=== PATIENT | female | born 1950 | race Caucasian/White ===

== ENCOUNTER → 2016-06-20 | Outpatient (CLI) | payer OTHER ==
[~2016-06-20] MED LIST: ABL/5 PO; ACET-1256 PO; ASPEC81 PO; BIOTCAP2 PO; BUPR10DI TOP; BUPR20DI TOP; CHOL100010 PO; CIPR1TAB11 PO; CYAN10004 SL; CYM60 PO; DIPH25CA65 PO; DOXY100C76 PO; ENAL1TAB29 PO; EZET10TA47 PO; FLUT27.53 NAE; FRRG PO; GABA-112 PO; HYDR-5688 PO; HYDR200T5 PO; INSU1.2I SQ; KPP/1000 PO; LEVE500T13 PO; LEVO75TA PO; MELO7.5T5 PO; NVLGI/PEN SC; OXCA300T PO; PHEN-775 PO; POLYSOL4 OP; POTASSIUM CITRATE PO; PRAV80TA2 PO; PRLSR20 PO; PROP20TA67 PO; TAMS0.4C38 PO; TOPI200T14 PO; VERA240C2 PO; VITA10004 PO; VITACAP37 PO; WARF-281 PO; WARF10TA4 PO; WARF5TAB7 PO; [UNRECOGNIZED DRUG - CODE] PO
== END | disposition home or self-care (01) ==
LOC: C.LABSPEC 17:24
PROVIDERS: ATTEND Nurse Practitioner Adult Health
DX: N20.0 Calculus of kidney (principal)

== ENCOUNTER → 2016-06-22 | Outpatient (CLI) | payer OTHER ==
--- NOTE | 2016-06-22 13:44 | DIAGNOSTIC IMAGING REPORT ---
ABDOMEN AND PELVIS CT WITHOUT CONTRAST CT DOSE: 991.82 mGycm HISTORY: Right-sided flank pain. TECHNIQUE: Multiaxial CT images of the abdomen and pelvis were performed without contrast. COMPARISON STUDY: Abdomen and pelvis CT 12/12/2011. FINDINGS: Subsegmental atelectasis within the left lung base. No pneumoperitoneum. No pneumatosis. Posterior decompression and fusion within the lower lumbar spine. A spinal stimulator device is again noted within the lumbar region. Tiny fat-containing umbilical hernia. Cholecystectomy. The unenhanced liver, pancreas, spleen, adrenal glands are unremarkable. Bilateral nephrolithiasis. Dominant stone within the lower pole of the right kidney measures 7 mm. No hydronephrosis. Bilateral renal hypodense lesions. These are incompletely characterize on this noncontrast study but likely represent cysts. The dominant lesion on the right measures 2 cm. No ureteral calculi. No hydronephrosis. No retroperitoneal lymphadenopathy. The bladder, uterus, and ovaries are within normal limits. Suboptimal evaluation for bowel pathology due to the lack of intravenous and oral contrast. However, there is no definite bowel wall thickening or obstruction. Normal appendix. IMPRESSION: 1. Bilateral nephrolithiasis. No hydronephrosis. 2. No definite bowel wall thickening or obstruction. 3. Additional findings as described above. Electronically signed by: Lisandro Parrish M.D. 06/22/2016 1:42 PM Dictated Date/Time: 06/22/2016 1:26 PM
== END | disposition home or self-care (01) ==
LOC: C.CTS 13:00
PROVIDERS: ATTEND Nurse Practitioner Adult Health
DX: N20.0 Calculus of kidney (principal); R10.9 Unspecified abdominal pain

== ENCOUNTER → 2016-06-29 | Outpatient (CLI) | payer OTHER ==
--- NOTE | 2016-06-29 12:36 | DIAGNOSTIC IMAGING REPORT ---
KUB CLINICAL HISTORY: Nephrolithiasis. FINDINGS: 2 AP supine abdominal radiographs are correlated with abdominal CT dated 06/22/2016. There is a nonobstructed abdominal bowel gas pattern noting moderate colonic fecal retention. No evidence of intraperitoneal free air is seen on these supine images. Cholecystectomy clips are present in the right upper quadrant. A 10 mm calcification projects over the right kidney. This likely represents a nonobstructing kidney stone when correlated with the recent abdominal CT scan. No calcifications are seen projecting over the left kidney or along the course of the ureters. Phleboliths are identified in the pelvis. The skeletal structures are osteopenic. There is lumbosacral spondylosis with evidence of previous lumbar spinal fusion. A stimulator device projects over the spine. IMPRESSION: 1. A 10 mm nonobstructing calculus projects over right kidney. This was better assessed on the 06/22/2016 CT scan. 2. Nonobstructed abdominal bowel gas pattern noting moderate constipation. Electronically signed by: Jhony Ortiz M.D. 06/29/2016 12:34 PM Dictated Date/Time: 06/29/2016 12:32 PM
[2016-06-29 13:10] LABS: COMPLETE YES; HEMATOCRIT 38.6 % (37-47); IG% 0.2 %; LYMPH % 30.8 %; LYMPH ABS # 1.76 K/uL (1.2-3.4); MEAN CORPUSCULAR HEMOGLOBIN 30.3 pg (25-34); MEAN CORPUSCULAR HGB CONC 33.7 g/dl (32-36); MEAN PLATELET VOLUME 9.2 fL (7.4-10.4); MONO % 6.6 %; NEUT % 62.4 %; PLATELET COUNT 251 K/uL (130-400); RED BLOOD COUNT 4.29 M/uL (4.2-5.4); WHITE BLOOD COUNT 5.72 K/uL (4.8-10.8)
[2016-06-29 13:25] LABS: ESTIMATED AVERAGE GLUCOSE 157 mg/dl; HA1C FLAG Normal (Normal)
[2016-06-29 13:35] LABS: ALT/SGPT 24 U/L (12-78)
[2016-06-29 13:39] LABS: ALKALINE PHOSPHATASE 83 U/L (45-117); AST/SGOT 14 U/L (15-37)
[2016-06-29 13:42] LABS: BLOOD UREA NITROGEN 45 mg/dl (7-18); BUN/CREATININE RATIO 34.6 (10-20)
== END | disposition home or self-care (01) ==
LOC: C.RAD1850 11:49
PROVIDERS: ATTEND Nurse Practitioner Adult Health
DX: N28.9 Disorder of kidney and ureter, unspecified (principal); M13.0 Polyarthritis, unspecified; Z92.29 Personal history of other drug therapy; M15.9 Polyosteoarthritis, unspecified; Z79.899 Other long term (current) drug therapy; E11.29 Type 2 diabetes mellitus with other diabetic kidney complication

== ENCOUNTER → 2016-07-04 | Outpatient (CLI) | payer OTHER ==
[~2016-07-04] MED LIST changes: +OPTIRAY 320 IV PRN
--- NOTE | 2016-07-04 12:17 | DIAGNOSTIC IMAGING REPORT ---
CT UROGRAM CLINICAL HISTORY: Follow-up renal lesion. COMPARISON STUDY: Unenhanced abdominal CT scan dated 06/22/2016. TECHNIQUE: Following the IV administration of 94 cc of Optiray 320, CT urogram of the abdomen and pelvis is performed from the lung bases to the proximal femora. Images are reviewed in the axial, sagittal, and coronal planes. IV contrast was administered without complication. The unenhanced series was not repeated as the patient had an unenhanced abdominal CT dated 06/22/2016. CT DOSE: 1277.76 mGy.cm FINDINGS: Lung bases: The heart is normal in size and without pericardial effusion. Linear atelectasis versus scarring is present at the lung bases. No airspace consolidation is identified typical for pneumonia and there is no pleural effusion. A small hiatal hernia is identified. Liver: The contrast-enhanced liver is normal in size, contour, and attenuation. There is minimal central intrahepatic biliary ductal dilatation. The hepatic veins and portal veins are patent. Gallbladder: Surgically absent noting clips in the gallbladder fossa. Spleen: Normal in size and attenuation. Pancreas: The pancreas is moderately atrophic and grossly unremarkable. Adrenal glands: Unremarkable. Kidneys and ureters: The contrast enhanced kidneys demonstrate cortical atrophy and are without hydronephrosis. The kidneys enhance and excrete symmetrically. Bilateral renal cysts measure up to 2.2 cm. Additional subcentimeter cortical hypodensities also likely represent cysts but are too small for definitive characterization. There is no enhancing renal cortical mass lesion identified. There is no evidence of urothelial lesion within the renal pelvis bilaterally or along the course of either ureter. Abdominal vasculature: The abdominal aorta is normal in course and caliber noting mild to moderate atherosclerotic calcification. Bowel: The small bowel and colon are normal in course and caliber. The appendix is well-visualized and normal. Peritoneum: There is no intraperitoneal free air or abdominal ascites. Lymphadenopathy: None. Pelvic viscera: The bladder is normal as visualized. The uterus and adnexa are normal as imaged. Skeletal structures: The skeletal structures are osteopenic. There is lumbar sacral spondylosis, with postoperative change from L4 to S1 spinal fusion. No destructive bony lesions are seen. A spinal simulator device is present with intrathecal leads. Arthritic change is also seen in the hips. IMPRESSION: 1. There are small bilateral renal cysts. 2. No enhancing renal mass is identified. There is no evidence of urothelial lesion within the renal pelvis bilaterally or along the course of the ureters. 3. The bladder is normal as visualized. 4. Additional findings as above. Electronically signed by: Jhony Ortiz M.D. 07/04/2016 12:16 PM Dictated Date/Time: 07/04/2016 12:05 PM
== END | disposition home or self-care (01) ==
LOC: C.CTS 10:37
PROVIDERS: ATTEND Nurse Practitioner Adult Health
DX: N28.1 Cyst of kidney, acquired (principal)

== ENCOUNTER 2016-08-02 07:08 | Day surgery (SDC) | payer OTHER ==
[2016-07-24 10:46] VITALS: BMI 36.0
--- NOTE | 2016-07-24 11:32 | PAT Medication Instructions ---
Service Date Jul 24, 2016. Current Home Medication List Acetaminophen (Tylenol), 500-1,000 MG PO Q6 PRN for Pain Aripiprazole (Abilify), 10 MG PO QAM Aspirin Enteric Coated (Ecotrin Or Generic *), 81 MG PO HS Biotin (Biotin 5000), 3 CAP PO QAM Buprenorphine (Butrans), 1 PATCH TOP WK Cholecalciferol (Vitamin D), 3,000 INTER.UNIT PO QPM Cyanocobalamin (Vitamin B-12 1000 Mcg), 1,000 MCG SL HS Diphenhydramine Hcl (Benadryl Allergy), 50 MG PO Q6 PRN for ALLERGIC REACTION Duloxetine Hcl (Cymbalta *), 120 MG PO HS Enalapril Maleate (Vasotec), 2.5 MG PO QAM Ezetimibe (Zetia), 10 MG PO HS Ferrous Gluconate (Iron Supplement), 324 MG PO QAM Hydroxychloroquine Sulfate (Plaquenil), 200 MG PO BIDM Insulin Aspart (Novolog Flexpen), 2 UNITS SC PM PRN for for BSG >100 Insulin Glargine (Toujeo Solostar), 24 UNITS SQ QAM Levetiracetam (Keppra), 500 MG PO BID Levetiracetam (Keppra), 2,000 MG PO HS Levothyroxine Sodium (Synthroid), 75 MCG PO QAM Omeprazole (Prilosec), 20 MG PO QAM Polyethylene Glycol-Propylene (Systane), 2 DROPS OP UD PRN for DRYNESS Pravastatin Sodium (Pravastatin Sodium), 80 MG PO HS Tamsulosin Hcl (Flomax), 0.4 MG PO HS Topiramate (Topamax), 300 MG PO HS Verapamil Hcl (Verapamil Hcl Er), 240 MG PO BID Vitamin E (Vitamin E), 1,000 UNITS PO QAM Warfarin Sod (Jantoven), 10 MG PO 2XWEEK Warfarin Sodium (Warfarin Sodium), 15 MG PO 5XWEEK [Potassium Citrate], 30 MEQ PO BID Medication Instructions For Your Scheduled Surgery - Continue as directed: Buprenorphine (Butrans), 1 PATCH TOP WK - Hold the following medications 7-10 days prior to surgery per surgeon's instructions (okay per prescribing physician): Aspirin Enteric Coated (Ecotrin Or Generic *), 81 MG PO HS - Hold the following medications as of 07/25/16: Biotin (Biotin 5000), 3 CAP PO QAM Vitamin E (Vitamin E), 1,000 UNITS PO QAM - Hold the following medications the morning of surgery: [Potassium Citrate], 30 MEQ PO BID Enalapril Maleate (Vasotec), 2.5 MG PO QAM Ferrous Gluconate (Iron Supplement), 324 MG PO QAM Diphenhydramine Hcl (Benadryl Allergy), 50 MG PO Q6 PRN for ALLERGIC REACTION Insulin Aspart (Novolog Flexpen), 2 UNITS SC PM PRN for for BSG >100 - For Insulin Dependent Diabetic patients: Test blood sugar A.M. of surgery. - If Blood Sugar is GREATER THAN 150, take HALF of your regular dose of: Insulin Glargine (Toujeo Solostar) - If Blood Sugar is LESS THAN 150, DO NOT TAKE ANY: Insulin Glargine - Take the following medications the morning of surgery with a sip of water OTHERWISE NOTHING TO EAT OR DRINK AFTER MIDNIGHT : Acetaminophen (Tylenol), 500-1,000 MG PO Q6 PRN for Pain (may take if needed up to 4 hours prior to surgery) Aripiprazole (Abilify), 10 MG PO QAM Levetiracetam (Keppra), 500 MG PO BID Verapamil Hcl (Verapamil Hcl Er), 240 MG PO BID Hydroxychloroquine Sulfate (Plaquenil), 200 MG PO BIDM Polyethylene Glycol-Propylene (Systane), 2 DROPS OP UD PRN for DRYNESS Levothyroxine Sodium (Synthroid), 75 MCG PO QAM Omeprazole (Prilosec), 20 MG PO QAM Warfarin Sod (Coumadin) (okay to continue per surgeon) - Take the following medications as scheduled the night before surgery: Acetaminophen (Tylenol), 500-1,000 MG PO Q6 PRN for Pain Levetiracetam (Keppra), 2,000 MG PO HS Pravastatin Sodium (Pravastatin Sodium), 80 MG PO HS Tamsulosin Hcl (Flomax), 0.4 MG PO HS Topiramate (Topamax), 300 MG PO HS Cholecalciferol (Vitamin D), 3,000 INTER.UNIT PO QPM [Potassium Citrate], 30 MEQ PO BID Ezetimibe (Zetia), 10 MG PO HS Duloxetine Hcl (Cymbalta *), 120 MG PO HS Cyanocobalamin (Vitamin B-12 1000 Mcg), 1,000 MCG SL HS Diphenhydramine Hcl (Benadryl Allergy), 50 MG PO Q6 PRN for ALLERGIC REACTION Insulin Aspart (Novolog Flexpen), 2 UNITS SC PM PRN for for BSG >100 Levetiracetam (Keppra), 500 MG PO BID Verapamil Hcl (Verapamil Hcl Er), 240 MG PO BID Hydroxychloroquine Sulfate (Plaquenil), 200 MG PO BIDM Polyethylene Glycol-Propylene (Systane), 2 DROPS OP UD PRN for DRYNESS If you have any questions please call us at [phone] or [phone] or [phone]
--- NOTE | 2016-07-24 12:00 | DIAGNOSTIC IMAGING REPORT ---
CHEST PREADMISSION(PA/LAT) CLINICAL HISTORY: Preoperative evaluation. COMPARISON STUDY: Chest radiograph October 07, 2015. FINDINGS: Lung volumes are normal. There is no pneumothorax or pleural effusion. Metallic density projecting of the left paraspinal region was shown on prior CT. This is iatrogenic. There is no evidence of pulmonary edema. No consolidation is present. The appearance of the chest is unchanged. Borderline cardiomegaly is unchanged. IMPRESSION: No acute cardiopulmonary findings. Electronically signed by: Esdras Freedman M.D. 07/24/2016 11:59 AM Dictated Date/Time: 07/24/2016 11:58 AM
[2016-07-24 12:21] LABS: HEMATOCRIT 38.6 % (37-47); MEAN CELL VOLUME 88.3 fL (80-100); MEAN CORPUSCULAR HEMOGLOBIN 29.7 pg (25-34); MEAN CORPUSCULAR HGB CONC 33.7 g/dl (32-36); MEAN PLATELET VOLUME 8.9 fL (7.4-10.4); PLATELET COUNT 220 K/uL (130-400); RED BLOOD COUNT 4.37 M/uL (4.2-5.4); WHITE BLOOD COUNT 5.75 K/uL (4.8-10.8)
[2016-07-24 12:32] LABS: URINE APPEARANCE CLEAR (CLEAR); URINE BILIRUBIN NEG (NEG); URINE COLOR YELLOW; URINE NITRITE NEG (NEG); URINE SPECIFIC GRAVITY 1.019 (1.000-1.030); UROBILINOGEN NEG (NEG)
[2016-07-24 12:34] LABS: MANUAL MICROSCOPIC REQUIRED? NO; REVIEW REQ? NO
[2016-07-24 12:40] LABS: BUN/CREATININE RATIO 29.6 (10-20); CALCIUM 9.1 mg/dl (8.5-10.1); POTASSIUM 4.7 mmol/L (3.5-5.1)
[2016-07-24 13:00] LABS: BASO % 0.2 %; BASO ABS # 0.01 K/uL (0-0.2); COMPLETE YES; IG% 0.2 %; LYMPH % 24.7 %; LYMPH ABS # 1.42 K/uL (1.2-3.4); MONO % 6.6 %; NEUT % 68.3 %
[~2016-08-02] VITALS: Ht 160 cm; Wt 92.5 kg
[~2016-08-02 07:08] MED LIST changes: -BUPR20DI TOP; -CIPR1TAB11 PO; +CIPROFLOXACIN / D5W 400 MG IV SCH; +CIPROFLOXACIN 400MG / D5W IV SCH; -DOXY100C76 PO; -FLUT27.53 NAE; -GABA-112 PO; -HYDR-5688 PO; +LACTATED RINGER'S 1000ML 1,000 ML IV SCH; -MELO7.5T5 PO; -OPTIRAY 320 IV PRN; -OXCA300T PO; -PHEN-775 PO; -PROP20TA67 PO; -VITACAP37 PO; -WARF5TAB7 PO; -[UNRECOGNIZED DRUG - CODE] PO
[2016-08-02 07:46] VITALS: BP 176/85; PULSE 101; TEMP 36.8; O2SAT 96; Ht 160 cm; Wt 92.5 kg
--- NOTE | 2016-08-02 07:49 | History & Physical Bridge Note ---
H&P Re-Evaluation Bridge Note: I have examined the patient, reviewed the History & Physical and in the interval since the performance of the History & Physical I have noted the following changes of clinical significance: No changes noted
[2016-08-02 08:11] LABS: INR 2.3 (0.9-1.1); PARTIAL THROMBOPLASTIN RATIO 1.7; PROTHROMBIN TIME (PATIENT) 25.8 SECONDS (9.0-12.0)
[2016-08-02] MEDS ORDERED: MIDAZOLAM HCL 1 MG/ML 2ML VIAL ONE (08:51)
[2016-08-02] MEDS ORDERED: FENTANYL CITRATE INJ 50 MCG/1 ML 2 ML VIAL ONE (08:51)
[2016-08-02] MEDS ORDERED: LIDOCAINE HCL 2% 2 ML VIAL (20MG/ML) ONE (09:27)
[2016-08-02] MEDS ORDERED: ONDANSETRON INJ 2 MG/ML 2 ML VIAL ONE (09:27)
[2016-08-02] MEDS ORDERED: PROPOFOL IV EMULSION 10 MG/ML 20 ML VIAL IV ONE (09:27)
[2016-08-02] MEDS ORDERED: PHENYLEPHRINE 100MCG/ML 5ML SYR ONE (09:27)
[2016-08-02] MEDS ORDERED: CONRAY 30% 150ML BOTTLE FLUSH ONE (09:55)
[2016-08-02] MEDS ORDERED: OXYCODONE/ACETAMINOPHEN 5-325 TAB PO PRN ×2 (10:00)
[2016-08-02] MEDS ORDERED: SODIUM CHLORIDE 0.9% 1000ML 1,000 ML IV SCH (10:00)
--- NOTE | 2016-08-02 10:00 | [facility] Post Operative Brief Note ---
Immediate Operative Summary Operative Date Aug 02, 2016. Pre-Operative Diagnosis Right nephrolithiasis. Post-Operative Diagnosis Same as preop. Procedure(s) Performed Cystoscopy, right ureteroscopy, laser lithotripsy, right stent insertion ([id number]) Surgeon Dr. Nathanael Carvajal Contract Administrative Assistant Surgeon(s) None Estimated Blood Loss 0 ml Findings Numerous right renal stones. All fragmented to pieces small enough to pass. Specimens None. Drains 6Fx 24cm Anesthesia Gen Complication(s) None Disposition Recovery Room / PACU (stable)
[2016-08-02] MEDS ORDERED: CIPR1TAB11 PO (10:03)
[2016-08-02] MEDS ORDERED: PHEN-775 PO (10:03)
[2016-08-02] MEDS ORDERED: HYDR-5688 PO (10:03)
--- NOTE | 2016-08-02 10:07 | Discharge Instructions ---
Discharge Instructions Admission Reason for Admission: Stones Discharge Discharge Diagnosis / Problem: stones Discharge Goals Goal(s): Decrease discomfort, Improve function, Increase independence, Improve disease control Activity Recommendations Activity Limitations: resume your previous activity Lifting Limitations: none Exercise/Sports Limitations: none May Resume Sexual Activity: when tolerated Shower/Bathe: no limitations Driving or Machine Use: no limitations . Instructions / Follow-Up Instructions / Follow-Up Please keep your previously scheduled follow up appointment with Dr. Carvajal Discharge Diet Recommended Diet: Regular Diet Procedures Procedures Performed: Cystoscopy, right ureteroscopy, laser lithotripsy, right stent insertion ([id number]) Pending Studies Studies pending at discharge: no Laboratory Results Hemoglobin A1c Test 06/29/16 11:55 Range/Units Estimated Average Glucose 157 mg/dl Hemoglobin A1c 7.1 H 4.5-5.6 % Medical Emergencies . Who to Call and When: Medical Emergencies: If at any time you feel your situation is an emergency, please call 911 immediately. . Non-Emergent Contact Non-Emergency issues call your: Urologist Call Non-Emergent contact if: you have a fever, temperature is above 101.5, your pain is not controlled, your pain is worsening . . "Provider Documentation" section prepared by Jong Rice. VTE Core Measure Inpt VTE Proph given/why not?: Warfarin (Coumadin) (ok to resume tomorrow) [place] Drug Monitoring Program Search Results: patient reviewed within database (chronic pain patch used)
[2016-08-02] MEDS ORDERED: NALOXONE HCL 0.4 MG/1 ML VIAL/CARP IV PRN (10:15)
[2016-08-02] MEDS ORDERED: LABETALOL HCL IV 5 MG/ML 20ML IV PRN (10:15)
[2016-08-02] MEDS ORDERED: ONDANSETRON INJ 2 MG/ML 2 ML VIAL IV PRN (10:15)
[2016-08-02] MEDS ORDERED: PROMETHAZINE HCL INJ 12.5 MG in SODIUM CHLORIDE 0.9% 50ML 50 ML IV PRN (10:15)
[2016-08-02] MEDS ORDERED: FENTANYL CITRATE INJ 50 MCG/1 ML 2 ML VIAL IV PRN (10:15)
[2016-08-02] MEDS ORDERED: EpHEDrine SULFATE INJ 50 MG/ML AMP IV PRN (10:15)
[2016-08-02] MEDS ORDERED: ATROPINE SULFATE 0.1 MG/ML 5ML SYR IV PRN (10:15)
--- NOTE | 2016-08-02 10:29 | Anesthesiology Progress Note ---
Anesthesia Post Op Note Date & Time Aug 02, 2016 at 10:29 Vital Signs Pain Intensity: 4.0 Vital Signs Past 12 Hours Date Time Temp Pulse Resp B/P Pulse Ox O2 Delivery O2 Flow Rate FiO2 08/02/16 10:10 87 16 123/76 100 Mask 10 08/02/16 10:02 36.8 78 16 93/67 100 Mask 10 08/02/16 07:46 36.8 101 18 176/85 96 Room Air Notes Mental Status: alert / awake / arousable, participated in evaluation Pt Amnestic to Procedure: Yes Nausea / Vomiting: adequately controlled Pain: adequately controlled Airway Patency, RR, SpO2: stable & adequate BP & HR: stable & adequate Hydration State: stable & adequate Anesthetic Complications: no major complications apparent
[2016-08-02 10:45] VITALS: BP 109/64; PULSE 89; TEMP 36.5; O2SAT 93
--- NOTE | 2016-08-02 10:46 | DIAGNOSTIC IMAGING REPORT ---
KUB CLINICAL HISTORY: RIGHT LASER/LITHO AND STENT TECHNIQUE: Image intensifier COMPARISON STUDY: None FINDINGS: Image intensifier images for laser lithotripsy IMPRESSION: Image intensifier utilization for laser lithotripsy Electronically signed by: Skyler Peguero M.D. 08/02/2016 10:45 AM Dictated Date/Time: 08/02/2016 10:44 AM
[2016-08-02 11:15] VITALS: BP 111/65; PULSE 84; TEMP 36.5; O2SAT 93
[2016-08-02 11:45] VITALS: BP 119/65; PULSE 87; TEMP 36.3; O2SAT 95
--- NOTE | 2016-08-02 15:03 | OPERATIVE REPORT ---
DATE OF OPERATION: 08/02/2016 PREOPERATIVE DIAGNOSIS: Right renal calculi. POSTOPERATIVE DIAGNOSIS: Right renal calculi. PROCEDURES PERFORMED: Cystoscopy, right ureteroscopy, right laser lithotripsy, and right ureteral stent placement 6-Nicaraguan x 24 cm. SURGEON: Nathanael Carvajal MD ANESTHESIA: General. ESTIMATED BLOOD LOSS: Zero. URINE OUTPUT: Not recorded. SPECIMENS: There are no specimens. DRAINS: There are no drains. DESCRIPTION OF THE PROCEDURE: Uday Robles was identified in the preoperative holding area. Appropriate informed consents were reviewed and completed and the patient was transported to the operating suite. Upon arrival, she received appropriate preoperative antibiotics as well as general anesthesia. I passed a 22-Nicaraguan cystoscope with 30 degree lens. Full inspection of the bladder was carried out and revealed no evidence of mucosal abnormalities. Ureteral orifices were in orthotopic position. I then intubated the right ureteral orifice with a sensor wire and a 10-Nicaraguan double lumen catheter was advanced in the kidney without difficulty before placing a second wire through the second port of the 10-Nicaraguan double lumen catheter. I then passed a flexible ureteroscope without difficulty to the level of the kidney. Full renoscopy was carried out identifying numerous stones within the kidney. The majority of these were very small and round. There were, however, at least 2 somewhat larger stones. I passed a 270 micron laser fiber and I sequentially fragmented all the large stones within the kidney as well as all the smaller stones until I felt that all visible debris was small enough for spontaneous passage. I then performed a careful repeat renoscopy before careful exit ureteroscopy and conclusion of the case. I placed a 6-Nicaraguan 24 cm double-J ureteral stent seeing an excellent curl in the kidney as well as the bladder and I emptied the bladder and the case was concluded. I attest to the content of the Intraoperative Record and any orders documented therein. Any exceptio ns are noted below.
[2016-08-02] MEDS ORDERED: TAMSULOSIN HCL 0.4 MG CAP PO SCH (21:00)
[2016-09-24] MEDS ORDERED: PROP20TA67 PO (15:16)
[2016-10-08] MEDS ORDERED: MELO7.5T5 PO (15:25)
[2016-10-25] MEDS ORDERED: WARF5TAB7 PO (14:56)
[2017-01-21] MEDS ORDERED: GABA-112 PO (15:42)
[2017-02-07] MEDS ORDERED: WARF5TAB7 PO (15:00)
[2017-02-12] MEDS ORDERED: DOXY100C76 PO (16:38)
[2017-02-15] MEDS ORDERED: VITACAP37 PO (12:27)
[2017-02-15] MEDS ORDERED: DIPH25CA65 PO (12:27)
[2017-02-15] MEDS ORDERED: OXCA300T PO (12:27)
[2017-02-21] MEDS ORDERED: FLUT27.53 NAE (14:25)
== END 2016-08-02 12:55 | disposition home or self-care (01) ==
LOC: C.ACU 07:08
PROVIDERS: ATTEND Urology
DX: N20.0 Calculus of kidney (principal); E11.49 Type 2 diabetes mellitus with other diabetic neurological complication; E11.29 Type 2 diabetes mellitus with other diabetic kidney complication; J44.9 Chronic obstructive pulmonary disease, unspecified; K21.0 Gastro-esophageal reflux disease with esophagitis; H90.12 Conductive hearing loss, unilateral, left ear, with unrestricted hearing on the contralateral side; E78.5 Hyperlipidemia, unspecified; F31.9 Bipolar disorder, unspecified; M12.88 Other specific arthropathies, not elsewhere classified, other specified site; H69.80 Other specified disorders of Eustachian tube, unspecified ear; M13.0 Polyarthritis, unspecified; I26.99 Other pulmonary embolism without acute cor pulmonale; E53.8 Deficiency of other specified B group vitamins; E55.9 Vitamin D deficiency, unspecified

== ENCOUNTER → 2016-08-06 | Outpatient (CLI) | payer OTHER ==
[~2016-08-06] MED LIST changes: +CIPR1TAB11 PO; -CIPROFLOXACIN / D5W 400 MG IV SCH; -CIPROFLOXACIN 400MG / D5W IV SCH; +DOXY100C76 PO; +FLUT27.53 NAE; +GABA-112 PO; +HYDR-5688 PO; -LACTATED RINGER'S 1000ML 1,000 ML IV SCH; +MELO7.5T5 PO; +OXCA300T PO; +PHEN-775 PO; +PROP20TA67 PO; +VITACAP37 PO; +WARF5TAB7 PO
[2016-08-06 11:32] LABS: BLOOD UREA NITROGEN 25 mg/dl (7-18); BUN/CREATININE RATIO 20.6 (10-20); CALCIUM 8.9 mg/dl (8.5-10.1); CARBON DIOXIDE 22 mmol/L (21-32); CHLORIDE 110 mmol/L (98-107); GLUCOSE 150 mg/dl (70-99); POTASSIUM 3.8 mmol/L (3.5-5.1); SODIUM 143 mmol/L (136-145)
[2016-08-06 11:33] LABS: PHOSPHORUS 3.3 mg/dl (2.5-4.9)
== END | disposition home or self-care (01) ==
LOC: C.LAB1850 09:46
PROVIDERS: ATTEND Internal Medicine Nephrology
DX: E21.3 Hyperparathyroidism, unspecified (principal); E55.9 Vitamin D deficiency, unspecified

== ENCOUNTER → 2016-08-08 | Outpatient (CLI) | payer OTHER ==
[2016-08-08 15:32] LABS: BASO % 0.2 %; BASO ABS # 0.01 K/uL (0-0.2); COMPLETE YES; HEMATOCRIT 35.8 % (37-47); IG% 0.2 %; LYMPH ABS # 1.73 K/uL (1.2-3.4); MEAN CELL VOLUME 88.2 fL (80-100); MEAN CORPUSCULAR HEMOGLOBIN 29.8 pg (25-34); MEAN CORPUSCULAR HGB CONC 33.8 g/dl (32-36); MEAN PLATELET VOLUME 8.7 fL (7.4-10.4); MONO % 6.9 %; NEUT % 60.7 %; PLATELET COUNT 228 K/uL (130-400); RED BLOOD COUNT 4.06 M/uL (4.2-5.4)
[2016-08-08 15:50] LABS: ALKALINE PHOSPHATASE 80 U/L (45-117); ALT/SGPT 23 U/L (12-78); AST/SGOT 14 U/L (15-37); CHOLESTEROL 128 mg/dl (0-200); CHOLESTEROL/HDL RATIO 1.9; HDL CHOLESTEROL 69 mg/dl; LDL CHOLESTEROL CALCULATED 45 mg/dl; TRIGLYCERIDES 72 mg/dl (0-150); VERY LOW DENSITY LIPOPROT CALC 14 mg/dl
== END | disposition home or self-care (01) ==
LOC: C.LAB1850 14:16
PROVIDERS: ATTEND Family Medicine
DX: E78.5 Hyperlipidemia, unspecified (principal); I10 Essential (primary) hypertension

== ENCOUNTER → 2016-08-09 | Outpatient (CLI) | payer OTHER ==
--- NOTE | 2016-08-09 15:37 | MAMMOGRAPHY REPORT ---
BILATERAL DIGITAL DIAGNOSTIC MAMMOGRAM TOMOSYNTHESIS WITH CAD AND TARGETED BILATERAL ULTRASOUND: 08/09 CLINICAL HISTORY: The patient reports diffuse bilateral breast tenderness as well as bilateral later al breast lumps. TECHNIQUE: Breast tomosynthesis in addition to standard 2D mammography was performed. Current study was also evaluated with a Computer Aided Detection (CAD) system. Bilateral CC and MLO 2-D and aubree synthesis images and bilateral spot magnification CC and ML views were obtained. COMPARISON: No prior exams were available for comparison. BREAST COMPOSITION: There are scattered areas of fibroglandular density in both breasts. FINDINGS: There is a small 2 mm cluster of faint amorphous calcifications in the right 12:00 breast , which is probably benign and likely represents an evolving rim/dystrophic calcification as seen el sewhere in both breasts. Additionally, there is a small 3 mm cluster of punctate calcifications see n within the left upper outer quadrant, which is also probably benign given the punctate morphology. However, given no priors for comparison, recommend six-month follow-up to confirm stability.The re mainder of both breasts demonstrate no suspicious masses, calcifications, or areas of architectural distortion mammographically. Targeted ultrasound was performed of the areas of palpable lumps pointed out by the patient, in the left breast at approximately 3:00, centered around 15 cm from the nipple, as well as right 9:00 cent ered around 13 cm from the nipple, as well as the right 8:00 breast. Sonographically normal tissue is seen in these regions, without evidence of a mass or other suspicious sonographic abnormality. IMPRESSION: ACR-BI-RADS CATEGORY 3: PROBABLY BENIGN, TARGETED ULTRASOUND ACR-BI-RADS CATEGORY 3: AL OBABLY BENIGN 1. No suspicious mammographic or sonographic abnormality at the site of bilateral breast lumps. No mammographic abnormality is seen to explain diffuse bilateral breast pain. Recommend clinical foll ow-up. 2. Small clusters of calcifications in the right 12:00 breast and left upper outer quadrant, which are probably benign although no prior exams are available to confirm stability. Recommend bilateral diagnostic mammograms in 6 months to confirm stability. The patient has been verbally notified of the results. Approximately 10% of breast cancers are not detected with mammography. A negative mammographic repor t should not delay biopsy if a clinically suggestive mass is present. Vonnie Tam M.D. ah/:08/09/2016 14:33:25 Accounts Payable Or Receivable Clerk: Annie Castellanos RT(R)(M), [facility] letter sent: Follow Up Recommended 3 BI-RADS Code: ACR-BI-RADS Category 3: Probably Benign Ultrasound BI-RADS: ACR-BI-RADS Category 3: P robably Benign
== END | disposition home or self-care (01) ==
LOC: C.MAMM 13:30
PROVIDERS: ATTEND Family Medicine
DX: N63 Unspecified lump in breast (principal); R92.1 Mammographic calcification found on diagnostic imaging of breast; N64.4 Mastodynia

== ENCOUNTER → 2016-09-28 | Outpatient (CLI) | payer OTHER ==
[~2016-09-28] MED LIST changes: -CIPR1TAB11 PO; +DIVA500T59 PO; -HYDR-5688 PO; +INSU1INJ33 SQ; -PHEN-775 PO; +TRAM-10 PO; +VITA1CAP4 PO
[2016-09-28 14:41] LABS: BASO % 0.2 %; BASO ABS # 0.01 K/uL (0-0.2); COMPLETE YES; EOS % 0.2 %; HEMATOCRIT 41.4 % (37-47); LYMPH % 37.7 %; LYMPH ABS # 1.92 K/uL (1.2-3.4); MEAN CELL VOLUME 92.2 fL (80-100); MEAN CORPUSCULAR HEMOGLOBIN 30.1 pg (25-34); MEAN CORPUSCULAR HGB CONC 32.6 g/dl (32-36); MEAN PLATELET VOLUME 8.5 fL (7.4-10.4); MONO % 7.9 %; PLATELET COUNT 249 K/uL (130-400); RED BLOOD COUNT 4.49 M/uL (4.2-5.4); WHITE BLOOD COUNT 5.09 K/uL (4.8-10.8)
[2016-09-28 14:58] LABS: CREATININE 0.97 mg/dl (0.60-1.20)
[2016-09-28 15:08] LABS: THYROID STIMULATING HORMONE 0.942 uIu/ml (0.300-4.500)
[2016-09-29 07:26] LABS: ESTIMATED AVERAGE GLUCOSE 143 mg/dl; HA1C FLAG Normal (Normal)
== END | disposition home or self-care (01) ==
LOC: C.LAB1850 13:01
PROVIDERS: ATTEND Nurse Practitioner Family
DX: M15.9 Polyosteoarthritis, unspecified (principal); M25.551 Pain in right hip; M70.61 Trochanteric bursitis, right hip; E11.29 Type 2 diabetes mellitus with other diabetic kidney complication; Z79.899 Other long term (current) drug therapy

== ENCOUNTER → 2016-11-13 | Outpatient (CLI) | payer OTHER ==
[~2016-11-13] MED LIST changes: -FRRG PO; -HYDR200T5 PO; -TAMS0.4C38 PO; -VERA240C2 PO; -VITA10004 PO
== END | disposition home or self-care (01) ==
LOC: C.PATHSPEC 16:31
PROVIDERS: ATTEND Dermatology
DX: L11.9 Acantholytic disorder, unspecified (principal)

== ENCOUNTER → 2016-11-26 | Outpatient (CLI) | payer OTHER ==
[~2016-11-26] MED LIST changes: -BIOTCAP2 PO; -BUPR10DI TOP
[2016-11-26 12:43] LABS: URINE PROTIEN/CREAT RATIO 0.3 (0-0.2); URINE TOTAL PROTEIN 18.9 mg/dl (0-11.9)
[2016-11-26 13:23] LABS: BLOOD UREA NITROGEN 48 mg/dl (7-18); BUN/CREATININE RATIO 43.7 (10-20); CARBON DIOXIDE 23 mmol/L (21-32); CHLORIDE 113 mmol/L (98-107); GLUCOSE 143 mg/dl (70-99); MAGNESIUM 2.3 mg/dl (1.8-2.4); PHOSPHORUS 3.6 mg/dl (2.5-4.9); POTASSIUM 4.2 mmol/L (3.5-5.1); SODIUM 144 mmol/L (136-145)
[2016-11-26 13:26] LABS: CALCIUM 8.8 mg/dl (8.5-10.1)
== END | disposition home or self-care (01) ==
LOC: C.LAB1850 10:30
PROVIDERS: ATTEND Internal Medicine Nephrology
DX: N18.3 Chronic kidney disease, stage 3 (moderate) (principal)

== ENCOUNTER → 2017-03-04 | Outpatient (CLI) | payer OTHER ==
[~2017-03-04] MED LIST changes: -ABL/5 PO; -ASPEC81 PO; -CYM60 PO; -DIVA500T59 PO; -DOXY100C76 PO; -ENAL1TAB29 PO; -LEVE500T13 PO; -POLYSOL4 OP; -TRAM-10 PO; -WARF-281 PO; -WARF10TA4 PO
[2017-03-04 13:03] LABS: BASO % 0.2 %; BASO ABS # 0.01 K/uL (0-0.2); COMPLETE YES; HEMATOCRIT 41.8 % (37-47); IG% 0.2 %; LYMPH % 23.2 %; LYMPH ABS # 1.31 K/uL (1.2-3.4); MEAN CELL VOLUME 93.9 fL (80-100); MEAN CORPUSCULAR HEMOGLOBIN 30.6 pg (25-34); MEAN CORPUSCULAR HGB CONC 32.5 g/dl (32-36); MEAN PLATELET VOLUME 9.4 fL (7.4-10.4); MONO % 7.3 %; NEUT % 69.1 %; PLATELET COUNT 255 K/uL (130-400); RED BLOOD COUNT 4.45 M/uL (4.2-5.4); WHITE BLOOD COUNT 5.65 K/uL (4.8-10.8)
[2017-03-04 13:23] LABS: ALT/SGPT 33 U/L (12-78); AST/SGOT 19 U/L (15-37)
[2017-03-04 13:26] LABS: ALKALINE PHOSPHATASE 100 U/L (45-117)
== END | disposition home or self-care (01) ==
LOC: C.LAB1850 11:17
PROVIDERS: ATTEND Nurse Practitioner Family
DX: Z92.29 Personal history of other drug therapy (principal); M15.9 Polyosteoarthritis, unspecified; M25.572 Pain in left ankle and joints of left foot; E11.9 Type 2 diabetes mellitus without complications

== ENCOUNTER → 2017-03-26 | Outpatient (CLI) | payer OTHER ==
[~2017-03-26] MED LIST changes: +DIVA500T59 PO; -FLUT27.53 NAE; -INSU1.2I SQ; -OXCA300T PO; +TRAM-10 PO; +WARF-281 PO
--- NOTE | 2017-03-26 12:42 | DIAGNOSTIC IMAGING REPORT ---
R KNEE 3 VIEWS CLINICAL HISTORY: Right knee pain COMPARISON: None. DISCUSSION: The bones are mildly osteopenic. No acute fractures are visualized. There is no radiographic evidence of a significant joint effusion. IMPRESSION: Osteopenia. No fractures identified. Electronically signed by: Eulogio Logan M.D. 03/26/2017 12:41 PM Dictated Date/Time: 03/26/2017 12:40 PM
--- NOTE | 2017-03-26 12:44 | DIAGNOSTIC IMAGING REPORT ---
L KNEE 3 VIEWS CLINICAL HISTORY: Left knee pain COMPARISON: None. DISCUSSION: The bones are mildly osteopenic. No fractures are visualized. There is no evidence of significant joint effusion. IMPRESSION: Mild osteopenia. No fractures identified. Electronically signed by: Eulogio Logan M.D. 03/26/2017 12:43 PM Dictated Date/Time: 03/26/2017 12:42 PM
== END | disposition home or self-care (01) ==
LOC: C.RAD1850 12:24
PROVIDERS: ATTEND Internal Medicine Rheumatology
DX: M25.572 Pain in left ankle and joints of left foot (principal); M85.89 Other specified disorders of bone density and structure, multiple sites

== ENCOUNTER → 2017-04-01 | Outpatient (CLI) | payer OTHER ==
--- NOTE | 2017-04-02 07:27 | MAMMOGRAPHY REPORT ---
BILATERAL DIGITAL DIAGNOSTIC MAMMOGRAM TOMOSYNTHESIS WITH CAD: 04/01/2017 CLINICAL HISTORY: 66-year-old woman presents for follow-up in both breasts for benign appearing small clusters of macrocalcifications in the 12:00 right breast and left upper outer quadrant. TECHNIQUE: Bilateral breast tomosynthesis in addition to standard 2D mammography was performed. Spot magnification CC and MLO views of each breast were also obtained. Current study was also evaluated with a Computer Aided Detection (CAD) system. COMPARISON: Comparison is made to exams dated: 08/09/2016 mammogram and 08/09/2016 ultrasound - [facility]. BREAST COMPOSITION: There are scattered areas of fibroglandular density in both breasts. FINDINGS: There are scattered bilateral benign coarse calcifications. There are small groupings of p unctate microcalcifications in the 12:00 anterior right breast, best seen on the spot magnification C C view and also in the upper outer needle to posterior left breast. When comparing to the prior spot magnification views, these appear similar in number, and configuration and are probably benign. How ever, given that no prior exams other than the August 2016 mammograms are available to document long-t erm stability, another short interval follow-up diagnostic mammogram including spot magnification vie ws in each breast is recommended in 6 months. No new suspicious masses, asymmetries, areas of distor tion or other suspicious calcifications are seen bilaterally. IMPRESSION: ACR-BI-RADS CATEGORY 3: PROBABLY BENIGN Stable bilateral mammograms including small benign-appearing groupings of punctate microcalcification s in the right 12:00 and left upper outer breast. Another six-month follow-up bilateral diagnostic m ammogram including spot magnification views is recommended to ensure longer stability. These results and recommendations were discussed with the patient at the time of the exam. Approximately 10% of breast cancers are not detected with mammography. A negative mammographic report should not delay biopsy if a clinically suggestive mass is present. Kylie Carvajal M.D. ay/:04/01/2017 15:45:04 Transportation Maintenance Operator: Anuja Gambino, [facility] letter sent: Follow Up Recommended 3 BI-RADS Code: ACR-BI-RADS Category 3: Probably Benign
== END ==
LOC: C.MAMM 13:23
PROVIDERS: ATTEND Family Medicine
DX: R92.0 Mammographic microcalcification found on diagnostic imaging of breast (principal)

== ENCOUNTER → 2017-04-12 | Outpatient (CLI) | payer OTHER ==
[2017-04-12 15:05] LABS: BASO % 0.1 %; BASO ABS # 0.01 K/uL (0-0.2); COMPLETE YES; HEMATOCRIT 41.4 % (37-47); IG% 0.1 %; LYMPH % 21.5 %; LYMPH ABS # 1.61 K/uL (1.2-3.4); MEAN CORPUSCULAR HGB CONC 32.6 g/dl (32-36); MEAN PLATELET VOLUME 9.3 fL (7.4-10.4); MONO % 4.7 %; NEUT % 73.6 %; PLATELET COUNT 199 K/uL (130-400); RED BLOOD COUNT 4.36 M/uL (4.2-5.4); WHITE BLOOD COUNT 7.49 K/uL (4.8-10.8)
[2017-04-12 15:26] LABS: URINE PROTIEN/CREAT RATIO 0.1 (0-0.2); URINE TOTAL PROTEIN 13.9 mg/dl (0-11.9)
[2017-04-12 15:39] LABS: ALT/SGPT 19 U/L (12-78); AST/SGOT 11 U/L (15-37); BLOOD UREA NITROGEN 31 mg/dl (7-18); CALCIUM 8.1 mg/dl (8.5-10.1); CARBON DIOXIDE 24 mmol/L (21-32); CHLORIDE 114 mmol/L (98-107); CREATININE 1.04 mg/dl (0.60-1.20); GLUCOSE 104 mg/dl (70-99); MAGNESIUM 2.2 mg/dl (1.8-2.4); POTASSIUM 4.2 mmol/L (3.5-5.1); SODIUM 144 mmol/L (136-145)
[2017-04-12 15:42] LABS: ALKALINE PHOSPHATASE 75 U/L (45-117); PHOSPHORUS 3.9 mg/dl (2.5-4.9)
== END | disposition home or self-care (01) ==
LOC: C.LAB1850 14:04
PROVIDERS: ATTEND Internal Medicine Nephrology
DX: Z79.899 Other long term (current) drug therapy (principal); N18.3 Chronic kidney disease, stage 3 (moderate)

== ENCOUNTER → 2017-05-31 | Outpatient (CLI) | payer OTHER ==
[~2017-05-31] MED LIST changes: +CHOL1000 PO; -CHOL100010 PO; +CLOZ25TA PO; -CYAN10004 SL; -MELO7.5T5 PO; +NAPR1TAB9 PO; +OPTIRAY 300 IV PRN; -POTASSIUM CITRATE PO; +PRAV40TA2 PO; -PRLSR20 PO; +RANI150T85 PO; +RANI300T2 PO; -TRAM-10 PO
--- NOTE | 2017-05-31 11:30 | DIAGNOSTIC IMAGING REPORT ---
CT SCAN OF THE ABDOMEN AND PELVIS WITH IV CONTRAST CLINICAL HISTORY: Change in bowel habits. Abdominal discomfort. COMPARISON STUDY: Abdominal CT dated 07/04/16. TECHNIQUE: Following the IV administration of 93 cc of Optiray 320, CT scan of the abdomen and pelvis is performed from the lung bases to the proximal femora. Images are reviewed in the axial, sagittal, and coronal planes. IV contrast was administered without complication. A dose lowering protocol was utilized according to the principles of ALARA. CT DOSE: 1517.84 mGy.cm FINDINGS: Lung bases: The heart is normal in size and without pericardial effusion. Linear atelectasis versus scarring is present at the left lung base. No airspace consolidation is identified typical for pneumonia and there is no pleural effusion. A small hiatal hernia is identified. Liver: The contrast-enhanced liver is normal in size, contour, and attenuation. There is minimal central intrahepatic biliary ductal dilatation. The hepatic veins and portal veins are patent. Gallbladder: Surgically absent noting clips in the gallbladder fossa. Spleen: Normal in size and attenuation. Pancreas: The pancreas is moderately atrophic and grossly unremarkable. Adrenal glands: Unremarkable. Kidneys and ureters: The contrast enhanced kidneys demonstrate cortical atrophy and are without hydronephrosis. The kidneys enhance symmetrically. Bilateral renal cysts measure up to 2.2 cm. Additional subcentimeter cortical hypodensities also likely represent cysts but are too small for definitive characterization. Abdominal vasculature: The abdominal aorta is normal in course and caliber noting mild to moderate atherosclerotic calcification. Bowel: There is mild to moderate colonic fecal retention. No bowel obstruction is seen. The appendix is well-visualized and normal. Peritoneum: There is no intraperitoneal free air or abdominal ascites. Lymphadenopathy: None. Pelvic viscera: The bladder is normal as visualized. The uterus and adnexa are normal as imaged. Skeletal structures: The skeletal structures are osteopenic. There is lumbosacral spondylosis, with postoperative change from L4 -S1 spinal fusion. No destructive bony lesions are seen. A simulator device is present with leads approaching the central canal. Arthritic change is also seen in the hips. IMPRESSION: 1. There are no acute infectious or inflammatory findings in the abdomen or pelvis. 2. There is mild to moderate colonic fecal retention. No bowel obstruction is seen. 3. Additional findings as above. Electronically signed by: Jhony Ortiz M.D. 05/31/2017 11:28 AM Dictated Date/Time: 05/31/2017 11:22 AM
== END | disposition home or self-care (01) ==
LOC: C.CTS 09:08
PROVIDERS: ATTEND Family Medicine
DX: R15.2 Fecal urgency (principal); R19.4 Change in bowel habit

== ENCOUNTER → 2017-06-26 | Outpatient (CLI) | payer OTHER ==
[~2017-06-26] MED LIST changes: -CHOL1000 PO; -CLOZ25TA PO; -KPP/1000 PO; -NAPR1TAB9 PO; -OPTIRAY 300 IV PRN; -PRAV40TA2 PO; -RANI150T85 PO; -RANI300T2 PO; -WARF5TAB7 PO; +ZNTT/150 PO
[2017-06-27 06:25] LABS: HEMOGLOBIN A1C 6.6 % (4.5-5.6)
== END | disposition home or self-care (01) ==
LOC: C.LAB1850 12:27
PROVIDERS: ATTEND Nurse Practitioner Family
DX: E11.9 Type 2 diabetes mellitus without complications (principal); E03.9 Hypothyroidism, unspecified

== ENCOUNTER → 2017-07-24 | Outpatient (CLI) | payer OTHER ==
[~2017-07-24] MED LIST changes: +PRAV40TA2 PO; -PRAV80TA2 PO; +RANI300T2 PO; -WARF-281 PO; +WARF5TAB7 PO; -ZNTT/150 PO
== END | disposition home or self-care (01) ==
LOC: C.LAB 06:46
PROVIDERS: ATTEND Internal Medicine Gastroenterology
DX: R19.4 Change in bowel habit (principal)

== ENCOUNTER → 2017-07-25 | Day surgery (SDC) | payer OTHER ==
[2017-07-15 10:00] VITALS: Ht 160 cm; Wt 95.5 kg
[~2017-07-25] VITALS: Ht 160 cm; Wt 95.5 kg
[~2017-07-25] MED LIST changes: +LIDOCAINE HCL 2% 2 ML VIAL (20MG/ML) ONE; +PHENYLEPHRINE 100MCG/ML 5ML SYR ONE; +PROPOFOL IV EMULSION 10 MG/ML 20 ML VIAL IV ONE
--- NOTE | 2017-07-25 14:27 | Endo History and Physical ---
History & Physical Date of Service: Jul 25, 2017. Chief Complaint: chenge in bowels Referring Physician: Dr Sanchez History of Present Illness For colonoscopy Past Medical History Diabetes, Anxiety, Reflux, Seizure Disorder, High Cholesterol, Hypertension, Thyroid Disease, Depression Past Surgical History Hx Cardiac Surgery: Yes (HEART CATH, NO STENTS) Hx Internal Defibrillator: No Hx Pacemaker: No Hx Abdominal Surgery: Yes (LUZ) Hx of Implantable Prosthesis: No Hx Post-Op Nausea and Vomiting: No Hx Cancer Surgery: No Hx Thoracic Surgery: No Hx Orthopedic: Yes (CLEANED OUT FORAMEN IN NECK (FULL ROM), LOW BACK X2) Hx Urinary Tract Surgery: No Family History None Social History Smoking Status: Former Smoker Hx Substance Use: No Hx Alcohol Use: No Allergies Coded Allergies: Doxycycline (Unverified Allergy, Unknown, ? tetracycline, doxy caused itching (rechallenge 02/2017), 07/15/17) Fluticasone (Verified Allergy, Unknown, BURNED NASAL PASSAGES, 07/15/17) Metoclopramide (Verified Allergy, Unknown, facial swelling and blisters, ) Penicillins (Verified Allergy, Unknown, Itchy, red hands, 07/15/17) Sulfamethoxazole w/Trimethoprim (Verified Allergy, Unknown, rash on face and chest, 07/15/17) Tetracycline (Verified Allergy, Unknown, ?--long time ago, doxy caused itching (rechallenge 02/2017), 07/15/17) Tolterodine (Verified Allergy, Unknown, HIVES, 07/15/17) Uncoded Allergies: ANTIPSYCHOTICS (Allergy, Unknown, TARDIVE DYSKINESIA, 07/15/17) KENALOG LOTION (Allergy, Unknown, RASH, 07/15/17) Current Medications Reported Home Medications Medications Dose Route/Sig Max Daily Dose Days Date Category Dose Instructions Zantac (Ranitidine HCl) 300 Mg Tab 300 Mg PO BID 07/15/17 Reported Pravastatin Sodium 40 Mg Tab 1 Tab PO HS 07/15/17 Reported Jantoven (Warfarin Sodium) 5 Mg Tab 7.5 Mg PO 5XWK 07/05/17 Reported SUN,TUES,WED,FRI,SAT Jantoven (Warfarin Sodium) 5 Mg Tab 10 Mg PO 2XWK 07/05/17 Reported MON,THURS Depakote (Divalproex Sodium) 500 Mg Tab 2 Tabs PO HS 03/22/17 Reported Depakote (Divalproex Sodium) 500 Mg Tab 1 Tab PO QAM 03/22/17 Reported Tresiba Flextouch (Insulin Degludec) 100 Unit/Ml Inj 4 Units SQ HS 03/08/17 Reported @1100 pm E 1000 (Vitamin E) 1,000 Unit Cap 1,000 Units PO HS 03/08/17 Reported E-400 (Vitamin E) 400 Unit Cap 400 Unit PO BID 02/15/17 Reported Benadryl Allergy (Diphenhydramine Hcl) 25 Mg Cap 1-2 Tabs PO Q6H PRN 02/15/17 Reported Neurontin (Gabapentin) 100 Mg Cap 2 Tabs PO HS 01/21/17 Reported Inderal (Propranolol HCl) 20 Mg Tab 20 Mg PO BID 09/24/16 Reported Novolog Flexpen (Insulin Aspart) 100 Units/Ml Inj 2-4 Units SC PM PRN 03/26/16 Reported as directed before dinner Tylenol (Acetaminophen) 500 Mg Tab 500-1,000 Mg PO Q6 PRN 09/02/15 Reported Synthroid (Levothyroxine Sodium) 75 Mcg Tab 75 Mcg PO QAM 05/29/13 Reported Zetia (Ezetimibe) 10 Mg Tab 10 Mg PO HS 12/12/11 Reported Topamax (Topiramate) 200 Mg Tab 1.5 Tabs PO HS 03/31/08 Reported Vital Signs Weight (Kilograms): 95.45 Height (Feet): 5 Height (Inches): 3 Physical Exam General Appearance: WD/WN, + pertinent finding (tremor) Respiratory/Chest: Respiratory effort: no dyspnea Cardiovascular: Heart Auscultation: RRR Abdomen: Inspection & Palpation: soft Assessment and Plan change in bowels for colonoscopy
--- NOTE | 2017-07-25 14:52 | Discharge Instructions ---
Endoscopy Patient Instructions Date / Procedure(s) Performed Jul 25, 2017. Colonoscopy Allergy Information Coded Allergies: Doxycycline (Unverified Allergy, Unknown, ? tetracycline, doxy caused itching (rechallenge 02/2017), 07/15/17) Fluticasone (Verified Allergy, Unknown, BURNED NASAL PASSAGES, 07/15/17) Metoclopramide (Verified Allergy, Unknown, facial swelling and blisters, ) Penicillins (Verified Allergy, Unknown, Itchy, red hands, 07/15/17) Sulfamethoxazole w/Trimethoprim (Verified Allergy, Unknown, rash on face and chest, 07/15/17) Tetracycline (Verified Allergy, Unknown, ?--long time ago, doxy caused itching (rechallenge 02/2017), 07/15/17) Tolterodine (Verified Allergy, Unknown, HIVES, 07/15/17) Uncoded Allergies: ANTIPSYCHOTICS (Allergy, Unknown, TARDIVE DYSKINESIA, 07/15/17) KENALOG LOTION (Allergy, Unknown, RASH, 07/15/17) Discharge Date / Findings Jul 25, 2017. 3 polyps Medication Instructions Stopped Medication(s): NOVOLOG 07/23/17, TRESIBA 07/23/17, WARFARIN 07/24/17 Restart Stopped Medication(s): resume meds Reported Home Medications Medications Dose Route/Sig Max Daily Dose Days Date Category Dose Instructions Zantac (Ranitidine HCl) 300 Mg Tab 300 Mg PO BID 07/15/17 Reported Pravastatin Sodium 40 Mg Tab 1 Tab PO HS 07/15/17 Reported Jantoven (Warfarin Sodium) 5 Mg Tab 7.5 Mg PO 5XWK 07/05/17 Reported SUN,TUES,WED,FRI,SAT Jantoven (Warfarin Sodium) 5 Mg Tab 10 Mg PO 2XWK 07/05/17 Reported MON,THURS Depakote (Divalproex Sodium) 500 Mg Tab 2 Tabs PO HS 03/22/17 Reported Depakote (Divalproex Sodium) 500 Mg Tab 1 Tab PO QAM 03/22/17 Reported Tresiba Flextouch (Insulin Degludec) 100 Unit/Ml Inj 4 Units SQ HS 03/08/17 Reported @1100 pm E 1000 (Vitamin E) 1,000 Unit Cap 1,000 Units PO HS 03/08/17 Reported E-400 (Vitamin E) 400 Unit Cap 400 Unit PO BID 02/15/17 Reported Benadryl Allergy (Diphenhydramine Hcl) 25 Mg Cap 1-2 Tabs PO Q6H PRN 02/15/17 Reported Neurontin (Gabapentin) 100 Mg Cap 2 Tabs PO HS 01/21/17 Reported Inderal (Propranolol HCl) 20 Mg Tab 20 Mg PO BID 09/24/16 Reported Novolog Flexpen (Insulin Aspart) 100 Units/Ml Inj 2-4 Units SC PM PRN 03/26/16 Reported as directed before dinner Tylenol (Acetaminophen) 500 Mg Tab 500-1,000 Mg PO Q6 PRN 09/02/15 Reported Synthroid (Levothyroxine Sodium) 75 Mcg Tab 75 Mcg PO QAM 05/29/13 Reported Zetia (Ezetimibe) 10 Mg Tab 10 Mg PO HS 12/12/11 Reported Topamax (Topiramate) 200 Mg Tab 1.5 Tabs PO HS 03/31/08 Reported Provider Instructions Activity Restrictions - No exercising or heavy lifting for 24 hours. - Do not drink alcohol the day of the procedure. - Do not drive a car or operate machinery until the day after the procedure. - Do not make any important decisions or sign important papers in 24 hours after the procedure. Following Day: - Return to full activity which may include returning to work/school. Diet Start your diet with liquids and light foods (jello, soup, juice, toast). Then eat your usual diet if not nauseated. Treatment For Common After Affects For mild abdominal pain, bloating, or excessive gas: - Rest - Eat lightly - Lie on right side Follow-Up Information Follow-up with DR BULLOCK as scheduled Anesthesia Information What You Should Know You have had a procedure that required some medicine to reduce anxiety and discomfort. This treatment is called moderate sedation. After receiving the treatment, you may be sleepy, but you will be able to breathe on your own. The effects of the treatment may last for several hours. Follow these instructions along with Activity/Diet recommendations noted above: * Do NOT do anything where dizziness or clumsiness would be dangerous. * Rest quietly at home today, then you can be up and about tomorrow. * Have a responsible person stay with you the rest of today. * You may have had an I.V. today. If so, you may take the dressing off later today. Recommendations Call your doctor if: * Trouble breathing * Continuous vomiting for more than 24 hours * Temperature above 101 degrees * Severe abdominal pain or bloating * Pain not relieved by pain medicine ordered * There is increased drainage or redness from any incision * A large amount of rectal bleeding greater than 2-3 tablespoons. (If you had a polyp/s removed or have hemorrhoids, a small amount of blood - from the rectum is to be expected.) * You have any unanswered questions or concerns. IN THE EVENT OF A SERIOUS EMERGENCY, GO TO THE NEAREST EMERGENCY ROOM Your discharge instructions were prepared by provider Robert Suarez. Patient Instructions Signature Page Uday Robles Patient (or Guardian) Signature/Date: I have read and understand the instructions given to me by my caregivers. Caregiver/RN/Doctor Signature/Date: The above-named patient and/or guardian has received patient instructions on this date. + Original Patient Signature Page (only) stays with chart. Please make copy for patient.
--- NOTE | 2017-07-25 14:56 | GI REPORT ---
Procedure Date: 07/25/2017 2:19 PM Procedure: Colonoscopy Indications: Change in bowel habits Medicines: Propofol total dose 260 mg IV, Lidocaine 20 mg IV Complications: No immediate complications. Estimated Blood Loss: Estimated blood loss: none. Procedure: Pre-Anesthesia Assessment: - Prior to the procedure, a History and Physical was performed, and patient medications, allergies and sensitivities were reviewed. The patient's tolerance of previous anesthesia was reviewed. - The risks and benefits of the procedure and the sedation options and risks were discussed with the patient. All questions were answered and informed consent was obtained. After I obtained informed consent, the scope was passed under direct vision. Throughout the procedure, the patient's blood pressure, pulse, and oxygen saturations were monitored continuously. The On-site loaner was introduced through the anus and advanced to the cecum, identified by appendiceal orifice and ileocecal valve. The colonoscopy was performed without difficulty. The patient tolerated the procedure well. The quality of the bowel preparation was good. Findings: A 10 mm polyp was found in the hepatic flexure. The polyp was sessile. The polyp was removed with a hot snare. Resection and retrieval were complete. Estimated blood loss: none. A 3 mm polyp was found in the hepatic flexure. The polyp was sessile. The polyp was removed with a cold biopsy forceps. Resection and retrieval were complete. Estimated blood loss: none. A 5 mm polyp was found in the sigmoid colon. The polyp was sessile. The polyp was removed with a hot snare. Resection and retrieval were complete. Estimated blood loss: none. Impression: - One 10 mm polyp at the hepatic flexure, removed with a hot snare. Resected and retrieved. - One 3 mm polyp at the hepatic flexure, removed with a cold biopsy forceps. Resected and retrieved. - One 5 mm polyp in the sigmoid colon, removed with a hot snare. Resected and retrieved. Recommendation: - Discharge patient to home (ambulatory). - Continue present medications. - Await pathology results. - Return to primary care physician PRN. Robert Suarez M.D. Robert Suarez MD 07/25/2017 2:55:52 PM This report has been signed electronically. Note Initiated On: 07/25/2017 2:19 PM I attest to the content of the Intraoperative Record and orders documented therein, exceptions below
--- NOTE | 2017-07-25 15:22 | Anesthesiology Progress Note ---
Anesthesia Post Op Note Date & Time Jul 25, 2017 at 15:22 Vital Signs Pain Intensity: 0 Vital Signs Past 12 Hours Date Time Temp Pulse Resp B/P (MAP) Pulse Ox O2 Delivery O2 Flow Rate FiO2 07/25/17 15:15 71 16 127/80 (96) 100 Room Air 07/25/17 14:58 80 12 119/58 (78) 97 Room Air 07/25/17 14:21 36.7 81 20 158/76 (103) 99 Room Air Notes Mental Status: alert / awake / arousable, participated in evaluation Pt Amnestic to Procedure: Yes Nausea / Vomiting: adequately controlled Pain: adequately controlled Airway Patency, RR, SpO2: stable & adequate BP & HR: stable & adequate Hydration State: stable & adequate Anesthetic Complications: no major complications apparent
[2017-07-25 15:30] VITALS: BP 133/74; PULSE 77; O2SAT 100
== END | disposition home or self-care (01) ==
LOC: C.GI 13:49
PROVIDERS: ATTEND Internal Medicine Gastroenterology
DX: R19.4 Change in bowel habit (principal); D12.5 Benign neoplasm of sigmoid colon; K63.5 Polyp of colon; E11.9 Type 2 diabetes mellitus without complications; F41.9 Anxiety disorder, unspecified; K21.9 Gastro-esophageal reflux disease without esophagitis; J44.9 Chronic obstructive pulmonary disease, unspecified; E78.00 Pure hypercholesterolemia, unspecified; M19.90 Unspecified osteoarthritis, unspecified site; E03.9 Hypothyroidism, unspecified; I10 Essential (primary) hypertension; F32.9 Major depressive disorder, single episode, unspecified; G40.909 Epilepsy, unspecified, not intractable, without status epilepticus; Z90.49 Acquired absence of other specified parts of digestive tract; Z87.891 Personal history of nicotine dependence; Z88.1 Allergy status to other antibiotic agents; Z88.0 Allergy status to penicillin; Z88.2 Allergy status to sulfonamides; Z88.8 Allergy status to other drugs, medicaments and biological substances; Z79.01 Long term (current) use of anticoagulants; Z79.4 Long term (current) use of insulin; Z86.718 Personal history of other venous thrombosis and embolism

== ENCOUNTER → 2017-09-05 | Outpatient (CLI) | payer OTHER ==
[~2017-09-05] MED LIST changes: +CLOZ25TA PO; -LIDOCAINE HCL 2% 2 ML VIAL (20MG/ML) ONE; -PHENYLEPHRINE 100MCG/ML 5ML SYR ONE; -PROPOFOL IV EMULSION 10 MG/ML 20 ML VIAL IV ONE
--- NOTE | 2017-09-05 14:25 | DIAGNOSTIC IMAGING REPORT ---
KUB CLINICAL HISTORY: Nephrolithiasis. FINDINGS: 2 AP supine abdominal radiographs are compared to study dated 06/29/2016 and correlated with abdominal CT dated 07/04/2016. There is a nonobstructed abdominal bowel gas pattern noting moderate colonic fecal retention. No evidence of intraperitoneal free air is seen on these supine images. Cholecystectomy clips are present in the right upper quadrant. No renal calculi are identified today's examination. No calcifications are seen projecting over the ureters. Phleboliths are identified in the pelvis. The skeletal structures are osteopenic. There is lumbosacral spondylosis with evidence of previous lumbar spinal fusion. A stimulator device projects over the spine. IMPRESSION: 1. There is no radiographic evidence of nephrolithiasis on today's examination. The renal shadows are partially obscured by overlying colonic contents. 2. Nonobstructed abdominal bowel gas pattern noting moderate constipation. Electronically signed by: Jhony Ortiz M.D. 09/05/2017 2:24 PM Dictated Date/Time: 09/05/2017 2:21 PM
== END | disposition home or self-care (01) ==
LOC: C.RAD1850 13:31
PROVIDERS: ATTEND Internal Medicine Nephrology
DX: N20.0 Calculus of kidney (principal)

== ENCOUNTER → 2017-09-09 | Outpatient (CLI) | payer OTHER ==
[2017-09-09 15:45] LABS: HEMATOCRIT 40.2 % (37-47); HEMOGLOBIN 13.3 g/dL (12.0-16.0); IG# 0.01 K/uL (0.00-0.02); LYMPH % 43.2 %; LYMPH ABS # 1.88 K/uL (1.2-3.4); MEAN CELL VOLUME 95.9 fL (80-100); MEAN CORPUSCULAR HEMOGLOBIN 31.7 pg (25-34); MEAN CORPUSCULAR HGB CONC 33.1 g/dl (32-36); MEAN PLATELET VOLUME 9.4 fL (7.4-10.4); MONO ABS # 0.35 K/uL (0.11-0.59); NEUT % 48.6 %; NEUT ABS # 2.11 K/uL (1.4-6.5); PLATELET COUNT 189 K/uL (130-400); RED CELL DISTRIBUTION WIDTH CV 13.2 % (11.5-14.5); RED CELL DISTRIBUTION WIDTH SD 45.8 fL (36.4-46.3); WHITE BLOOD COUNT 4.35 K/uL (4.8-10.8)
[2017-09-09 16:09] LABS: BLOOD UREA NITROGEN 31 mg/dl (7-18); CALCIUM 8.4 mg/dl (8.5-10.1); CARBON DIOXIDE 24 mmol/L (21-32); CREATININE 0.99 mg/dl (0.60-1.20); GLUCOSE 101 mg/dl (70-99); POTASSIUM 4.2 mmol/L (3.5-5.1); SODIUM 145 mmol/L (136-145)
[2017-09-09 16:10] LABS: PHOSPHORUS 3.9 mg/dl (2.5-4.9)
== END | disposition home or self-care (01) ==
LOC: C.LAB1850 14:15
PROVIDERS: ATTEND Internal Medicine Nephrology
DX: I12.9 Hypertensive chronic kidney disease with stage 1 through stage 4 chronic kidney disease, or unspecified chronic kidney disease (principal); N28.9 Disorder of kidney and ureter, unspecified; E55.9 Vitamin D deficiency, unspecified; N18.3 Chronic kidney disease, stage 3 (moderate)

== ENCOUNTER → 2018-01-01 | Outpatient (CLI) | payer OTHER ==
[~2018-01-01] MED LIST changes: +CHOL1000 PO; -EZET10TA47 PO; +NAPR1TAB9 PO
== END | disposition home or self-care (01) ==
LOC: C.LAB 10:49
PROVIDERS: ATTEND Physician Assistant
DX: E55.9 Vitamin D deficiency, unspecified (principal); G62.9 Polyneuropathy, unspecified; E11.9 Type 2 diabetes mellitus without complications; R56.9 Unspecified convulsions; D48.5 Neoplasm of uncertain behavior of skin

== ENCOUNTER 2018-08-20 02:52 | Observation (INO) ==
--- NOTE | 2018-08-20 04:54 | Emergency Department Note ---
Entered by Frank Lemos acting as a scribe for ED Provider Note CC: Hypoglycemia HPI: 68 y/o female arrives for evaluation of constant hypoglycemia beginning [employer] via EMS. EMS states the patient was found unconscious by her daughter. They report the patient was found at the bottom of the stairs next to her lift hair. EMS notes her BSG was 22, so they gave her a bag of D10 in route. The patient states her last BSG was 170, but it has steadily been dropping. She reports her last INR was taken , and it was 3. The patient notes a history of Phillips's Palsy, DM II, and PE. She denies nausea, vomiting, chest pain, SOB, and headaches. The patient states she fell two weeks while trying to go to the bathrooom because she tripped. ROS: See above HPI for pertinent positives & negatives. A total of 10 systems reviewed and were otherwise negative. Past Medical History: DM II, PE, Phillips's Palsy, HTN Past Surgical History: No pertinent Family History: Diabetes, Heart disease Social History: Lives with daughter Home Medications: Coumadin Allergies: Penicillins Physical: Vitals: BP 121/68, Pulse 78, Resp 20, Temp 97.5 Exam: GENERAL: Patient is chronically ill appearing and in minimal distress. EYES: No scleral icterus, unremarkable pupils. ENT: Mucous membranes moist, no nasal congestion. NECK: No masses appreciated, no meningismus, trachea is midline. RESPIRATORY: No dyspnea. Clear to auscultation and equal bilaterally. No wheeze, no rhonchi. CARDIOVASCULAR: Regular rate and rhythm. No murmurs, rubs, gallops appreciated. GASTROINTESTINAL: Abdomen soft, non-tender, no peritonitis. Bowel sounds positive. No masses appreciated. BACK: No midline tenderness, no CVA tenderness EXTREMITIES: Normal motion all extremities, no cyanosis, no edema. NEUROLOGIC: Alert and oriented, no acute motor or sensory deficits, no focal weakness, cranial nerves grossly intact. Righ facial droop (chronic). SKIN: No rash, no jaundice, no diaphoresis. GCS 15 ED Course: 0257: Past medical records reviewed. The patient was evaluated in room C01B, and a complete history and physical examination were performed. 0404: The patient's blood sugar is continuing to decrease even after eating. 0445: The patient's blood pressure is in the 200s now. 0452: Dr. Lees [facility] Hospitalist is speaking with the patient. 0454: I reviewed the patient's case with Dr. Lees [facility] Hospitalist. He will evaluate the patient for further management. 0504: I reevaluated the patient and discussed the findings with her. She verbalized agreement to a hospitalist evaluation and the treatment plan. The patient will be evaluated for further management and care. Prior Medical Record, Triage/Nursing Notes, Medications reviewed by Me Labs reviewed and remarkable for hypoglycemia Vital Signs reviewed and remarkable for wnl Imaging: X ray results are stated below per my interpretation: Chest: 1 view: No infiltrate, no effusion, normal cardiac border. [facility] Radiologist interpretation reviewed by me: "CT HEAD: No ICH, mass effect or edema. No evidence of acute cortical stroke. No midline shift or hydrocephalus. Mild chronic ischemic small vessel white matter disease. Visualized sinuses and mastoid air cells are clear. Radiologist: Irvin Gaffney M.D." EKG: No acute findings Consults: Dr. Lees [facility] Hospitalist Blood pressure: Low - Monitored by hospitalist Disposition: hospitalization Differentials: Differential Diagnosis includes but is not limited to deh ydration, stroke, anemia, hypoglycemia, hyponatremia, hypernatremia, urinary tract infection, pneumonia, bronchitis, sepsis, gastroenteritis, additional abdominal pathology, metabolic abnormalities and infections. Medical Decision Makin yr old female with extensive PMH arrives for evaluation of hypoglycemia and head injury when she passed out on to floor. No headache nor neck pain but she is on Coumadin thus she had CT head done which was unremarkable. No evidence of ACS nor infection. She continues to drop BSG while here requiring dose D50 despite eating/drinking. She was reviewed with hospitalist who knows her well. Given her fragile state to begin with will bring her in for further monitoring. Stable otherwise while in ED. Impression: Hypoglycemia Closed Head Injury Armond Gonzalez MD The scribe's documentation has been prepared under my direction and personally reviewed by me in its entirety. I confirm that the note above accurately reflects all work, treatment, procedures, and medical decision making performed by me. Impression & Plan Hypoglycemia, CHI (closed head injury) Past Med/Surg History Medical History Phillips's palsy Diabetes mellitus, type II (Chronic) Hypertension (Chronic) Surgical History No pertinent past surgical history Family History Other FHx: heart disease Family history of diabetes mellitus Social History Feels Safe at Home: Yes Smoking Status: Former smoker Results & Data Vital Signs Vital Signs - 24 hr 08/20/18 02:57 08/20/18 04:21 Temperature 36.4 C L Temperature Source Oral Sepsis Action Taken by Nursing No Action Required Pulse Rate 78 Pulse Rate [Finger] 76 Respiratory Rate 20 18 Blood Pressure 121/68 Blood Pressure [Left Arm] 98/52 L Blood Pressure Mean 85 Blood Pressure Mean [Left Arm] 67 Pulse Oximetry 96 95 Oxygen Delivery Method Room Air Home Medications Current Medication List: was personally reviewed by me Laboratory Data Attestation: I reviewed the patient's lab results. Result diagrams: 08/20/18 03:16 08/20/18 03:59 Lab Results 08/20/18 08/20/18 08/20/18 Range/Units 02:58 03:16 03:16 WBC 6.92 (4.8-10.8) K/uL RBC 4.00 L (4.2-5.4) M/uL Hgb 12.5 (12.0-16.0) g/dL Hct 37.5 (37-47) % MCV 93.8 (80-100) fL MCH 31.3 (25-34) pg MCHC 33.3 (32-36) g/dL RDW Std Deviation 49.1 H (36.4-46.3) fL RDW Coeff of Jennifer 14.2 (11.5-14.5) % Plt Count 234 (130-400) K/uL MPV 10.9 H (7.4-10.4) fL Immature Gran % (Auto) 0.1 % Neut % (Auto) 66.6 % Lymph % (Auto) 26.3 % Brooks % (Auto) 6.9 % Eos % (Auto) 0.0 % Baso % (Auto) 0.1 % Immature Gran # (Auto) 0.01 (0.00-0.02) K/uL Neut # (Auto) 4.60 (1.4-6.5) K/uL Lymph # (Auto) 1.82 (1.2-3.4) K/uL [place] # (Auto) 0.48 (0.11-0.59) K/uL Eos # (Auto) 0.00 (0-0.5) K/uL Baso # (Auto) 0.01 (0-0.2) K/uL PT Cancelled INR Cancelled Sodium Potassium Chloride Carbon Dioxide Anion Gap BUN Creatinine Est Cr Clr Drug Dosing Est GFR ( Amer) Est GFR (Non-Af Amer) BUN/Creatinine Ratio Glucose POC Glucose 107 H (70-99) Calcium Total Bilirubin Direct Bilirubin AST ALT Alkaline Phosphatase Troponin I Total Protein Albumin Urine Color Urine Appearance (Clear) Urine pH (4.5-7.5) Ur Specific [place] (1.000-1.030) Urine Protein (Negative) Urine Glucose (UA) (Negative) Urine Ketones (Negative) Urine Blood (Negative) Urine Nitrite (Negative) Urine Bilirubin (Negative) Urine Urobilinogen (Negative) Ur Leukocyte Esterase (Negative) 08/20/18 08/20/18 08/20/18 Range/Units 03:16 03:25 03:59 WBC (4.8-10.8) K/uL RBC (4.2-5.4) M/uL Hgb (12.0-16.0) g/dL Hct (37-47) % MCV (80-100) fL MCH (25-34) pg MCHC (32-36) g/dL RDW Std Deviation (36.4-46.3) fL RDW Coeff of Jennifer (11.5-14.5) % Plt Count (130-400) K/uL MPV (7.4-10.4) fL Immature Gran % (Auto) % Neut % (Auto) % Lymph % (Auto) % Brooks % (Auto) % Eos % (Auto) % Baso % (Auto) % Immature Gran # (Auto) (0.00-0.02) K/uL Neut # (Auto) (1.4-6.5) K/uL Lymph # (Auto) (1.2-3.4) K/uL [place] # (Auto) (0.11-0.59) K/uL Eos # (Auto) (0-0.5) K/uL Baso # (Auto) (0-0.2) K/uL PT INR Sodium Cancelled 144 Potassium Cancelled 3.5 Chloride Cancelled 118 H Carbon Dioxide Cancelled 21 Anion Gap Cancelled 5.0 BUN Cancelled 26 H Creatinine Cancelled 1.09 Est Cr Clr Drug Dosing Cancelled 59.8 Est GFR ( Amer) Cancelled 61.3 Est GFR (Non-Af Amer) Cancelled 52.9 BUN/Creatinine Ratio Cancelled 23.6 H Glucose Cancelled 62 L POC Glucose (70-99) Calcium Cancelled 7.8 L Total Bilirubin Cancelled 0.3 Direct Bilirubin Cancelled < 0.1 AST Cancelled 20 ALT Cancelled 27 Alkaline Phosphatase Cancelled 85 Troponin I Cancelled < 0.015 Total Protein Cancelled 6.5 Albumin Cancelled 3.1 L Urine Color Yellow Urine Appearance Clear (Clear) Urine pH 5.5 (4.5-7.5) Ur Specific [place] 1.013 (1.000-1.030) Urine Protein Negative (Negative) Urine Glucose (UA) Negative (Negative) Urine Ketones Negative (Negative) Urine Blood Negative (Negative) Urine Nitrite Negative (Negative) Urine Bilirubin Negative (Negative) Urine Urobilinogen Negative (Negative) Ur Leukocyte Esterase Negative (Negative) 08/20/18 08/20/18 08/20/18 Range/Units 03:59 03:59 04:00 WBC (4.8-10.8) K/uL RBC (4.2-5.4) M/uL Hgb (12.0-16.0) g/dL Hct (37-47) % MCV (80-100) fL MCH (25-34) pg MCHC (32-36) g/dL RDW Std Deviation (36.4-46.3) fL RDW Coeff of Jennifer (11.5-14.5) % Plt Count (130-400) K/uL MPV (7.4-10.4) fL Immature Gran % (Auto) % Neut % (Auto) % Lymph % (Auto) % [place] % (Auto) % Eos % (Auto) % Baso % (Auto) % Immature Gran # (Auto) (0.00-0.02) K/uL Neut # (Auto) (1.4-6.5) K/uL Lymph # (Auto) (1.2-3.4) K/uL [place] # (Auto) (0.11-0.59) K/uL Eos # (Auto) (0-0.5) K/uL Baso # (Auto) (0-0.2) K/uL PT 15.1 H INR 1.5 H Sodium Potassium Chloride Carbon Dioxide Anion Gap BUN Creatinine Est Cr Clr Drug Dosing Est GFR ( Amer) Est GFR (Non-Af Amer) BUN/Creatinine Ratio Glucose POC Glucose 65 L* (70-99) Calcium Total Bilirubin Direct Bilirubin AST ALT Alkaline Phosphatase Troponin I Cancelled Total Protein Albumin Urine Color Urine Appearance (Clear) Urine pH (4.5-7.5) Ur Specific [place] (1.000-1.030) Urine Protein (Negative) Urine Glucose (UA) (Negative) Urine Ketones (Negative) Urine Blood (Negative) Urine Nitrite (Negative) Urine Bilirubin (Negative) Urine Urobilinogen (Negative) Ur Leukocyte Esterase (Negative) 08/20/18 08/20/18 Range/Units 04:43 05:08 WBC (4.8-10.8) K/uL RBC (4.2-5.4) M/uL Hgb (12.0-16.0) g/dL Hct (37-47) % MCV (80-100) fL MCH (25-34) pg MCHC (32-36) g/dL RDW Std Deviation (36.4-46.3) fL RDW Coeff of Jennifer (11.5-14.5) % Plt Count (130-400) K/uL MPV (7.4-10.4) fL Immature Gran % (Auto) % Neut % (Auto) % Lymph % (Auto) % [place] % (Auto) % Eos % (Auto) % Baso % (Auto) % Immature Gran # (Auto) (0.00-0.02) K/uL Neut # (Auto) (1.4-6.5) K/uL Lymph # (Auto) (1.2-3.4) K/uL [place] # (Auto) (0.11-0.59) K/uL Eos # (Auto) (0-0.5) K/uL Baso # (Auto) (0-0.2) K/uL PT INR Sodium Potassium Chloride Carbon Dioxide Anion Gap BUN Creatinine Est Cr Clr Drug Dosing Est GFR ( Amer) Est GFR (Non-Af Amer) BUN/Creatinine Ratio Glucose POC Glucose 223 H 180 H (70-99) Calcium Total Bilirubin Direct Bilirubin AST ALT Alkaline Phosphatase Troponin I Total Protein Albumin Urine Color Urine Appearance (Clear) Urine pH (4.5-7.5) Ur Specific [place] (1.000-1.030) Urine Protein (Negative) Urine Glucose (UA) (Negative) Urine Ketones (Negative) Urine Blood (Negative) Urine Nitrite (Negative) Urine Bilirubin (Negative) Urine Urobilinogen (Negative) Ur Leukocyte Esterase (Negative) Administered Medications Discontinued Medications Dextrose (Dextrose 50%) 50 ml IV NOW ONE Stop: 08/20/18 04:04 Last Admin: 08/20/18 04:18 Dose: 50 ml Documented by: [id number] Blood Pressure Blood Pressure Findings: Low blood pressure Blood Pressure Disposition: further management by hospitalist Discharge Plan Visit Data Chief Complaint: Hypoglycemia ED Provider: Armond Gonzalez Discharge Problem: Hypoglycemia, CHI (closed head injury) Patient Disposition: Being Evaluated by Hospitalist Forms Stand Alone Forms: My [facility] Prescriptions Prescriptions: No Action bupropion HCl [Wellbutrin XL] 150 mg tablet extended release 24 hr 150 mg PO QAM RF: 0 clozapine 50 mg tablet 50 mg PO HS RF: 0 propranolol 20 mg tablet 20 mg PO BID RF: 0 topiramate [Topamax] 200 mg tablet 200 mg PO BID RF: 0 pravastatin 40 mg tablet 40 mg PO DAILY RF: 0 levothyroxine 75 mcg capsule 75 mcg PO DAILY RF: 0 cholecalciferol (vitamin D3) 1,000 unit capsule 1,000 units PO DAILY RF: 0 naproxen sodium [Aleve] 220 mg tablet 220 mg PO BID PRN (Reason: Pain) RF: 0 ezetimibe [Zetia] 10 mg tablet 10 mg PO DAILY RF: 0 insulin aspart U-100 [Novolog PenFill U-100 Insulin] 100 unit/mL cartridge 6 - 8 units SQ .WITH SUPPER RF: 0 insulin degludec [Tresiba FlexTouch U-100] 100 unit/mL (3 mL) insulin pen 11 units SQ HS RF: 0 coenzyme Q10 200 mg capsule 200 mg PO DAILY RF: 0 warfarin 5 mg tablet See Rx Instructions PO .COMPLEX 90 Days Qty: 330 RF: 0 gabapentin 400 mg capsule 400 mg PO QID RF: 0 vitamin E (dl, acetate) 400 unit capsule 400 units PO AMPM RF: 0 bupropion HCl 300 mg tablet extended release 24 hr 300 mg PO QAM RF: 0 vitamin E 1,000 unit Capsule 1,000 unit PO HS RF: 0 Referrals Referrals: Louie Sanchez MD [Primary Care Provider] - Discharge Problem: CHI (closed head injury) Qualifiers: Encounter type: initial encounter Qualified Code(s): S09.90XA - Unspecified injury of head, initial encounter The scribe's documentation has been prepared under my direction and personally reviewed by me in its entirety. I confirm that the note above accurately reflects all work, treatment, procedures, and medical decision making performed by me.
--- NOTE | 2018-08-20 05:43 | History & Physical Report ---
Date of Service August 20, 2018 Assessment & Plan (1) Hypoglycemia: Persistent hypoglycemia-- Hold regularly scheduled Tresiba insulin and coverage. Place on Accu-Cheks before meals and at bedtime, and as needed sugar goes low. Adjust for high coverage with range 150-200. D5 1/2 NSS + KCl 20 mEq at 100 mils per hour. Most likely reason is patient inadvertently took excess amount of insulin. May need to contact the endocrinology clinic. Consult dietitian. Present on Admission?: Yes (2) Diabetes mellitus, type II: As above. Present on Admission?: Yes (3) Hypertension: Hold propranolol 20 mg p.o. twice daily, due to hypoglycemia unawareness. If she is on this for headache control as well, may be best of changing to verapamil or Cardizem CD. Present on Admission?: Yes (4) Pulmonary embolism on right: On warfarin per anticoagulation clinic. INR subtherapeutic 1.5. Place on Lovenox 1 mg kilogram subcu every 12 hours until INR therapeutic again. Present on Admission?: Yes (5) Anxiety and depression: Continue bupropion, bupropion XL, clozapine, topiramate. Present on Admission?: Yes (6) Peripheral neuropathy: Continue gabapentin and Topamax Present on Admission?: Yes (7) Hypothyroidism (acquired): Continue levothyroxine 75 mcg daily Present on Admission?: Yes (8) Hyperlipidemia LDL goal <70: Continue Zetia and pravastatin. Present on Admission?: Yes History of Present Illness Chief Complaint: The patient presents to the emergency department with complaint of persistent hypoglycemia after being found unconscious by her daughter at home, near the bottom of her stairs next her lift chair, and EMS reported a blood sugar of 22 upon arrival. Primary Care Provider: Louie Sanchez MD The patient is a 68-year-old female with past medical history including diabetes mellitus on Tresiba, who was found unconscious at home by her daughter, and EMS records upon arrival was a blood sugar 22. She has been given multiple rounds of oral and IV dextrose sources, and her blood sugar continues to drop quickly after a quick rise. There is not been any identifiable signs of infection. The patient reports that she has not taken any additional insulin than usual, but that seems to be the most obvious answer to this point. The patient will be admitted for further monitoring of her low blood sugar. Allergies Allergy/AdvReac Type Severity Reaction Status Date / Time Bactrim Allergy Unknown rash on Verified 07/25/17 14:16 face and chest doxycycline Allergy Unknown ? Unverified 08/20/18 04:31 tetracycline, doxy caused itching (rechallenge 02/2017) fluticasone Allergy Unknown BURNED Verified 08/20/18 04:31 NASAL PASSAGES metoclopramide Allergy Unknown facial Verified 08/20/18 04:31 swelling and blisters Penicillins Allergy Unknown Itchy, red Verified 08/20/18 04:31 hands sulfamethoxazole Allergy Unknown rash on Verified 08/20/18 04:31 face and chest tetracycline Allergy Unknown ?--long Verified 08/20/18 04:31 time ago, doxy caused itching (rechallenge 02/2017) tolterodine Allergy Unknown HIVES Verified 08/20/18 04:31 trimethoprim Allergy Unknown rash on Verified 08/20/18 04:31 face and chest ANTIPSYCHOTICS Allergy Unknown TARDIVE Uncoded 08/20/18 04:31 DYSKINESIA KENALOG LOTION Allergy Unknown RASH Uncoded 08/20/18 04:31 Home Medications Home Medications Medication Instructions Recorded Confirmed Type bupropion HCl XL 150 mg 24 hr 150 mg PO QAM tab 03/06/18 08/20/18 History tablet, extended release cholecalciferol (vitamin D3) 1,000 1,000 units PO DAILY 03/06/18 08/20/18 History unit capsule clozapine 50 mg tablet 50 mg PO HS tab 03/06/18 08/20/18 History ezetimibe 10 mg tablet 10 mg PO DAILY 03/06/18 08/20/18 History levothyroxine 75 mcg capsule 75 mcg PO DAILY 03/06/18 08/20/18 History naproxen sodium 220 mg tablet 220 mg PO BID PRN 03/06/18 08/20/18 History pravastatin 40 mg tablet 40 mg PO DAILY 03/06/18 08/20/18 History propranolol 20 mg tablet 20 mg PO BID 03/06/18 08/20/18 History topiramate 200 mg tablet 200 mg PO BID 03/06/18 08/20/18 History gabapentin 400 mg capsule 400 mg PO QID cap 03/27/18 08/20/18 History insulin aspart U- 100 100 unit/mL 6 - 8 units SQ .WITH SUPPER ml 05/22/18 08/20/18 History subcutaneous cartridge insulin degludec (U-100) 100 11 units SQ HS ml 05/22/18 08/20/18 History unit/mL (3 mL) subcutaneous pen coenzyme Q10 200 mg capsule 200 mg PO DAILY 07/10/18 08/20/18 History warfarin 5 mg tablet See Rx Instructions PO .COMPLEX 90 07/10/18 08/20/18 Rx Days #330 tabs vitamin E (dl, acetate) 400 unit 400 units PO AMPM 08/13/18 08/20/18 History capsule bupropion HCl 300 mg PO QAM 08/20/18 08/20/18 History vitamin E 1,000 unit PO HS 08/20/18 08/20/18 History Past Med/Surg History Medical History Phillips's palsy Diabetes mellitus, type II (Chronic) Hypertension (Chronic) Surgical History No pertinent past surgical history Family History Other FHx: heart disease Family history of diabetes mellitus Social History Feels Safe at Home: Yes Smoking Status: Former smoker Review of Systems The patient denies chest pain, palpitations, shortness of breath, dyspnea on exertion, cough, lower extremity swelling, sore throat, fevers, chills, sweats, vomiting, diarrhea , constipation, abdominal pain, pelvic pain, blood in urine or stool, dysuria, urinary frequency or urgency, headache, rash, focal weakness, numbness or tingling in arms or legs, generalized arthralgias or myalgias, back or neck pain, or night sweats. The review of systems is otherwise negative other than for that already noted above, and at least 10 systems have been reviewed. Physical Exam Vital Signs (Past 24 Hours): Last Vital Signs Temp 36.4 C L 08/20/18 02:57 Pulse 76 08/20/18 04:21 Resp 18 08/20/18 04:21 BP 98/52 L 08/20/18 04:21 Pulse Ox 95 08/20/18 04:21 Physical Exam: The patient is awake, alert and oriented �3, well developed and well nourished, normocephalic and atraumatic, lying in bed and in no acute distress. HEENT--PERRL, EOMI, mucous membranes and oropharynx normal. Neck--supple. No JVD. No bruits. Thyroid normal, trachea midline, no adenopathy. Heart--normal S1 and S2. No murmurs, rubs or gallops. Lungs--clear bilaterally, no respiratory distress, no accessory muscle use. Abdomen--normal bowel sounds and soft. Nontender. Nondistended. Obese. Extremities--no cyanosis or clubbing. No edema. There are good distal pulses b/l. Dermatologic--normal skin turgor, normal color, no abnormal lymph nodes, no rash. Neurologic--cranial nerves II through XII grossly intact. Rheumatologic--normal range of motion. Psychiatric--normal affect. Results & Data Laboratory Results Laboratory Results WBC 6.92 K/uL (4.8-10.8) 08/20/18 03:16 RBC 4.00 M/uL (4.2-5.4) L 08/20/18 03:16 Hgb 12.5 g/dL (12.0-16.0) 08/20/18 03:16 Hct 37.5 % (37-47) 08/20/18 03:16 MCV 93.8 fL (80-100) 08/20/18 03:16 MCH 31.3 pg (25-34) 08/20/18 03:16 MCHC 33.3 g/dL (32-36) 08/20/18 03:16 RDW Std Deviation 49.1 fL (36.4-46.3) H 08/20/18 03:16 RDW Coeff of Jennifer 14.2 % (11.5-14.5) 08/20/18 03:16 Plt Count 234 K/uL (130-400) 08/20/18 03:16 MPV 10.9 fL (7.4-10.4) H 08/20/18 03:16 Immature Gran % (Auto) 0.1 % 08/20/18 03:16 Neut % (Auto) 66.6 % 08/20/18 03:16 Lymph % (Auto) 26.3 % 08/20/18 03:16 [place] % (Auto) 6.9 % 08/20/18 03:16 Eos % (Auto) 0.0 % 08/20/18 03:16 Baso % (Auto) 0.1 % 08/20/18 03:16 Immature Gran # (Auto) 0.01 K/uL (0.00-0.02) 08/20/18 03:16 Neut # (Auto) 4.60 K/uL (1.4-6.5) 08/20/18 03:16 Lymph # (Auto) 1.82 K/uL (1.2-3.4) 08/20/18 03:16 [place] # (Auto) 0.48 K/uL (0.11-0.59) 08/20/18 03:16 Eos # (Auto) 0.00 K/uL (0-0.5) 08/20/18 03:16 Baso # (Auto) 0.01 K/uL (0-0.2) 08/20/18 03:16 PT 15.1 Seconds (9.0-12.0) H 08/20/18 03:59 INR 1.5 (0.9-1.1) H 08/20/18 03:59 Sodium 144 mmol/L (136-145) 08/20/18 03:59 Potassium 3.5 mmol/L (3.5-5.1) 08/20/18 03:59 Chloride 118 mmol/L (98-107) H 08/20/18 03:59 Carbon Dioxide 21 mmol/L (21-32) 08/20/18 03:59 Anion Gap 5.0 (3-11) 08/20/18 03:59 BUN 26 mg/dl (7-18) H 08/20/18 03:59 Creatinine 1.09 mg/dl (0.6-1.2) 08/20/18 03:59 Est Cr Clr Drug Dosing 59.8 ml/min 08/20/18 03:59 Est GFR ( Amer) 61.3 08/20/18 03:59 Est GFR (Non-Af Amer) 52.9 08/20/18 03:59 BUN/Creatinine Ratio 23.6 (10-20) H 08/20/18 03:59 Glucose 62 mg/dl (70-99) L 08/20/18 03:59 POC Glucose 180 (70-99) H 08/20/18 05:08 Calcium 7.8 mg/dl (8.5-10.1) L 08/20/18 03:59 Total Bilirubin 0.3 mg/dl (0.2-1) 08/20/18 03:59 Direct Bilirubin < 0.1 mg/dl (0-0.2) 08/20/18 03:59 AST 20 U/L (15-37) 08/20/18 03:59 ALT 27 U/L (12-78) 08/20/18 03:59 Alkaline Phosphatase 85 U/L (45-117) 08/20/18 03:59 Troponin I < 0.015 ng/ml (0-0.045) 08/20/18 03:59 Total Protein 6.5 gm/dl (6.4-8.2) 08/20/18 03:59 Albumin 3.1 gm/dl (3.4-5.0) L 08/20/18 03:59 Urine Color Yellow 08/20/18 03:25 Urine Appearance Clear (Clear) 08/20/18 03:25 Urine pH 5.5 (4.5-7.5) 08/20/18 03:25 Ur Specific [place] 1.013 (1.000-1.030) 08/20/18 03:25 Urine Protein Negative (Negative) 08/20/18 03:25 Urine Glucose (UA) Negative (Negative) 08/20/18 03:25 Urine Ketones Negative (Negative) 08/20/18 03:25 Urine Blood Negative (Negative) 08/20/18 03:25 Urine Nitrite Negative (Negative) 08/20/18 03:25 Urine Bilirubin Negative (Negative) 08/20/18 03:25 Urine Urobilinogen Negative (Negative) 08/20/18 03:25 Ur Leukocyte Esterase Negative (Negative) 08/20/18 03:25 Code Status & VTE Plan Code Status Full code VTE Prophylaxis Plan VTE Prophylaxis will be ordered: Yes
--- NOTE | 2018-08-20 06:51 | CT Scan Report ---
CT head/brain wo con CLINICAL HISTORY: 68 years-old Female with Syncope, head injury, on coumadin, GCS 15. Acute syncope with head injury TECHNIQUE: Multiple axial CT images of the head were obtained without contrast. A dose lowering tech nique was utilized adhering to the principles of ALARA. CT DOSE: 569.73 mGy.cm COMPARISON: CT of the temporal bones 08/24/2005. FINDINGS: No acute intracranial hemorrhage, midline shift, intracranial mass, hydrocephalus, territorial ischem ia or abnormal extra-axial collection. Minimal ill-defined hypodensity about the white matter suggest [place] of chronic microvascular ischemic changes. The calvarium is intact. Postoperative changes from prior partial left mastoidectomy. The right mast oid air cells are clear. Paranasal sinuses are also generally clear. Hypoplasia of the frontal sinuse s. Soft tissues and orbits appear unremarkable. IMPRESSION: No acute intracranial abnormality. The above report was generated using voice recognition software. It may contain grammatical, syntax o r spelling errors. Electronically signed by: Delbert Leiva M.D. 08/20/2018 6:50 AM
--- NOTE | 2018-08-20 12:28 | Hospitalist Progress Note ---
Date of Service August 20, 2018 Assessment & Plan (1) Hypoglycemia: Persistent hypoglycemia-- Hold regularly scheduled Tresiba insulin and coverage. Place on Accu-Cheks before meals and at bedtime, and as needed sugar goes low. Adjust for high coverage with range 150-200. D5 1/2 NSS + KCl 20 mEq at 100 mils per hour. Most likely reason is patient inadvertently took excess amount of insulin. May need to contact the endocrinology clinic. Consult dietitian. (2) Diabetes mellitus, type II: As above. (3) Hypertension: Hold propranolol 20 mg p.o. twice daily, due to hypoglycemia unawareness. She takes for essential tremor as well as blood pressure. (4) Pulmonary embolism on right: On warfarin per anticoagulation clinic. INR subtherapeutic 1.5. Place on Lovenox 1 mg kilogram subcu every 12 hours until INR therapeutic again. (5) Anxiety and depression: Continue bupropion, bupropion XL, clozapine, topiramate. (6) Peripheral neuropathy: Continue gabapentin and Topamax (7) Hypothyroidism (acquired): Continue levothyroxine 75 mcg daily (8) Hyperlipidemia LDL goal <70: Continue Zetia and pravastatin. (9) DVT prophylaxis: Lovenox, coumadin Full code PT/OT evals ordered Subjective Ms. Robles is feeling well, no complaints. She does not know why her blood sugars dropped as they did. She took her medication as usual, she has been eating her normal diet. She has not had a drop in her bsg like this since 1991 Review of Systems All systems reviewed & are unremarkable except as noted in HPI & below Physical Exam Vital Signs (Past 24 Hours): Last Vital Signs Temp 36.7 C 08/20/18 12:02 Pulse 76 08/20/18 12:02 Resp 18 08/20/18 12:02 BP 128/69 08/20/18 12:02 Pulse Ox 97 08/20/18 12:02 Physical Exam: General: no distress Eyes: normal inspection, PERLL Respiratory: chest non tender, clear to auscultation, normal breath sounds, no respiratory distress, no accessory muscle use Cardiac: regular rate and rhythm, no rub or gallop, no murmur, no edema, no jvd GI/: active bowel sounds, no abd pain or tenderness, soft, non distended Extremities: normal range of motion, normal strength, non tender Neuro/Psych: alert and oriented x 3, normal mood and affect, 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1 H (9.0-12.0) Seconds INR 1.5 H (0.9-1.1) Chloride (98-107) mmol/L BUN (7-18) mg/dl BUN/Creatinine Ratio (10-20) Glucose (70-99) mg/dl POC Glucose 65 L* 223 H (70-99) Calcium (8.5-10.1) mg/dl Albumin (3.4-5.0) gm/dl 08/20/18 08/20/18 08/20/18 Range/Units 05:08 08:17 11:18 RBC (4.2-5.4) M/uL RDW Std Deviation (36.4-46.3) fL MPV (7.4-10.4) fL PT (9.0-12.0) Seconds INR (0.9-1.1) Chloride (98-107) mmol/L BUN (7-18) mg/dl BUN/Creatinine Ratio (10-20) Glucose (70-99) mg/dl POC Glucose 180 H 169 H 147 H (70-99) Calcium (8.5-10.1) mg/dl Albumin (3.4-5.0) gm/dl
--- NOTE | 2018-08-21 13:28 | Hospitalist Progress Note ---
Date of Service August 21, 2018 Assessment & Plan (1) Hypoglycemia: Persistent hypoglycemia-- Will restart long acting insulin tonight at 50% Place on Accu-Cheks before meals and at bedtime and at midnight D5 1/2 NSS + KCl 20 mEq discontinued Patient is sure she did not take any extra doses of insulin. Diabetic education A1c 6.1 - patient has room to loosen her goal range as this is probably overly tight control (2) Diabetes mellitus, type II: As above. (3) Hypertension: Restarted propranolol 20 mg p.o. twice daily - patient does not want to discontinue this medication. We did talk about it's blunting of awareness of hypoglycemia and she understands this. I think we will need to loosen her goal range in order to accomadate the propranolol and avoid another hypoglycemic episode. She takes for essential tremor as well as blood pressure. (4) Pulmonary embolism on right: On warfarin per anticoagulation clinic. INR subtherapeutic 1.5. on admission - Today 2.0 - will dc lovenox as patient is therapeutic (5) Anxiety and depression: Continue bupropion, bupropion XL, clozapine, topiramate. (6) Peripheral neuropathy: Continue gabapentin and Topamax (7) Hypothyroidism (acquired): Continue levothyroxine 75 mcg daily (8) Hyperlipidemia LDL goal <70: Continue Zetia and pravastatin. (9) DVT prophylaxis: Coumadin Full code PT/OT evals ordered Subjective Ms. Robles is very concerned about her blood sugars. She is sure she did not take any extra doses of insulin two evenings ago and is worried about recurrence of her drop in blood sugar. She does not have any complaints or symtoms today Review of Systems All systems reviewed & are unremarkable except as noted in HPI & below Physical Exam Vital Signs (Past 24 Hours): Last Vital Signs Temp 36.9 C 08/21/18 12:00 Pulse 70 08/21/18 12:00 Resp 18 08/21/18 12:00 BP 134/78 08/21/18 12:00 Pulse Ox 94 08/21/18 12:00 Physical Exam: General: no distress Eyes: normal inspection, PERLL Respiratory: chest non tender, clear to auscultation, normal breath sounds, no respiratory distress, no accessory muscle use Cardiac: regular rate and rhythm, no rub or gallop, no murmur, no edema, no jvd GI/: active bowel sounds, no abd pain or tenderness, soft, non distended Extremities: normal range of motion, normal strength, non tender Neuro/Psych: alert and oriented x 3, normal mood and affect Skin: normal color, dry Results & Data Laboratory Results Abnormal lab results 08/20/18 08/20/18 08/20/18 Range/Units 16:37 20:14 23:35 PT (9.0-12.0) Seconds INR (0.9-1.1) POC Glucose 170 H 191 H 135 H (70-99) Hemoglobin A1c (4.5-5.6) % 08/21/18 08/21/18 08/21/18 Range/Units 02:01 06:10 06:10 PT 19.8 H (9.0-12.0) Seconds INR 2.0 H (0.9-1.1) POC Glucose 106 H (70-99) Hemoglobin A1c 6.1 H (4.5-5.6) % 08/21/18 08/21/18 Range/Units 07:38 11:45 PT (9.0-12.0) Seconds INR (0.9-1.1) POC Glucose 131 H 132 H (70-99) Hemoglobin A1c (4.5-5.6) %
--- NOTE | 2018-08-22 11:25 | Discharge Summary ---
Date of Service August 22, 2018 Admission HPI Per Admitting Provider The patient is a 68-year-old female with past medical history including diabetes mellitus on Tresiba, who was found unconscious at home by her daughter, and EMS records upon arrival was a blood sugar 22. She has been given multiple rounds of oral and IV dextrose sources, and her blood sugar continues to drop quickly after a quick rise. There is not been any identifiable signs of infection. The patient reports that she has not taken any additional insulin than usual, but that seems to be the most obvious answer to this point. The patient will be admitted for further monitoring of her low blood sugar. Principal Diagnosis Hypoglycemia Discharge Exam Constitutional WD/WN, vitals as above Respiratory normal respiratory effort, lungs clear to auscultation Cardiovascular RRR, no murmur, no edema Gastrointestinal (Abdomen) Inspection/Auscultation: abdomen normal to inspection and normal bowel sounds; abdomen not distended Percussion/Palpation: + abdomen tender and abdomen soft Musculoskeletal no cyanosis or clubbing, extremities motor strength 5/5 Skin no rashes, warm and dry Neurologic moves all extremities and awake Psychiatric A+Ox3, euthymic affect Discharge Data Allergies Allergy/AdvReac Type Severity Reaction Status Date / Time Bactrim Allergy Unknown rash on Verified 07/25/17 14:16 face and chest doxycycline Allergy Unknown ? Unverified 08/20/18 04:31 tetracycline, doxy caused itching (rechallenge 02/2017) fluticasone Allergy Unknown BURNED Verified 08/20/18 04:31 NASAL PASSAGES metoclopramide Allergy Unknown facial Verified 08/20/18 04:31 swelling and blisters Penicillins Allergy Unknown Itchy, red Verified 08/20/18 04:31 hands sulfamethoxazole Allergy Unknown rash on Verified 08/20/18 04:31 face and chest tetracycline Allergy Unknown ?--long Verified 08/20/18 04:31 time ago, doxy caused itching (rechallenge 02/2017) tolterodine Allergy Unknown HIVES Verified 08/20/18 04:31 trimethoprim Allergy Unknown rash on Verified 08/20/18 04:31 face and chest ANTIPSYCHOTICS Allergy Unknown TARDIVE Uncoded 08/20/18 04:31 DYSKINESIA KENALOG LOTION Allergy Unknown RASH Uncoded 08/20/18 04:31 Consultations 08/20/18 05:01 ED Decision to Admit Stat 08/20/18 06:36 Consult Case Management - Discharge Planning Routine Ordered Studies 08/20/18 03:01 CT head/brain wo con Urgent Hospital Course (1) Hypoglycemia: Persistent hypoglycemia-- Place on Accu-Cheks before meals and at bedtime and at midnight Patient is sure she did not take any extra doses of insulin. Barring an error in dosing by the patient, there is no other obvious exacerbating circumstance to explain why her blood sugars dropped so low. She denies any changes to her diet and is quite sure she took her normal dosing. Diabetic education A1c 6.1 - patient has room to loosen her goal range as this is probably overly tight control I did call the endocrinology office and discuss outgoing insulin regimen with Dr. Rocha. Will decrease Tresiba by about 20% to 8 units and her short acting to 4-6 units per her rec. Patient has only been requiring about 6 units a day of insulin while here while maintaining blood sugars 100 - 135. She did note that she does not feel her diet at the hospital reflects the way she eats at home and so she will likely require more than 6 units once home. The patient also inquired about a monitor to alert her when her constant blood sugar monitor gets a low reading. This will have to be arranged by the endocrinology office. (2) Diabetes mellitus, type II: As above. (3) Hypertension: Restarted propranolol 20 mg p.o. twice daily - patient does not want to discontinue this medication. We did talk about it's blunting of awareness of hypoglycemia and she understands this. Again, she has room to loosen her goal range in order to accommodate the propranolol and avoid another hypoglycemic episode. She takes for essential tremor as well as blood pressure. (4) Pulmonary embolism on right: On warfarin per anticoagulation clinic. INR subtherapeutic 1.5. on admission - Today 2.3 - will dc lovenox as patient is therapeutic Patient should return to her home warfarin regimen. Her last visit to the coumadin clinic was 08/13. The regimen they gave her is 10 mg M/ and then 15 mg the other days. She took 16 mg since coming to the hospital which raised her from 1.5 to 2.3 in two days so dropping back to her previous regimen will hopefully keep her within in therapeutic range. It looks like she has been pretty stable with her home regimen since at least February so will not make changes to it now that she is therapeutic again. She will have her INR checked on Saturday. (5) Anxiety and depression: Continue bupropion, bupropion XL, clozapine, topiramate. (6) Peripheral neuropathy: Continue gabapentin and Topamax (7) Hypothyroidism (acquired): Continue levothyroxine 75 mcg daily (8) Hyperlipidemia LDL goal <70: Continue Zetia and pravastatin. (9) DVT prophylaxis: Coumadin Full code PT/OT evals recommend return home Total Time Total Time Spent Total Time Spent (In Minutes): greater than 30 minutes Discharge Plan Discharge Items Patient Disposition: Home - Self-Care Reason For Visit: HYPOGLYCEMIA Discharge Diagnosis: Hypoglycemia Discharge Goals: Improve disease control Activity: Resume your previous activity Non-emergency contact: Primary Care Provider Call non-emergency contact if: you have any medication questions and your symptoms worsen Follow-up/Referrals: Gordy Benavides PA-C [Family Provider] - 09/03/18 2:30 pm (Please, follow up at [facility] Endocrinology Office with Gordy Benavides PA-C on SaturdaySeptember 03 at 2:30 pm. *If you need to change this appointment, call the office at [phone].) Louie Sanchez MD [Primary Care Provider] - 08/29/18 1:30 pm (Please, follow up at Dr. Vin Sanchez's office with his associate, Dr. Connell, on SaturdayAugust 29 at 1:30 pm. *If you need to change this appointment, call their office at [phone].) Diet: Carb Consistent or DM2 Other Ambulatory Orders: Prothrombin Time INR (Routine) Timeframe: [id number] Location: Determined by Patient Ordered By: Paula Small Provider Instructions: I have discussed your insulin regimen with your [facility] consultant office and have made their recommended changes to your insulin regimen. You should check your blood sugars before meals and before bed and bring a log of your blood sugars with you to your next appointment. Please call your [facility] consultant if you are experiencing low blood sugars (below 70) or return to the ED if you feel it is emergent. Your INR was below therapeutic when you arrived at the emergency department. Your INR today was therapeutic at 2.3. Please continue to follow the recommended dosing from your last anticoagulation clinic visit. You should have your INR checked on Saturday. Prescriptions: Continued bupropion HCl [Wellbutrin XL] 150 mg tablet extended release 24 hr 150 mg PO QAM RF: 0 clozapine 50 mg tablet 50 mg PO HS RF: 0 propranolol 20 mg tablet 20 mg PO BID RF: 0 topiramate [Topamax] 200 mg tablet 200 mg PO BID RF: 0 pravastatin 40 mg tablet 40 mg PO DAILY RF: 0 levothyroxine 75 mcg capsule 75 mcg PO DAILY RF: 0 cholecalciferol (vitamin D3) 1,000 unit capsule 1,000 units PO DAILY RF: 0 naproxen sodium [Aleve] 220 mg tablet 220 mg PO BID PRN (Reason: Pain) RF: 0 ezetimibe [Zetia] 10 mg tablet 10 mg PO DAILY RF: 0 coenzyme Q10 200 mg capsule 200 mg PO DAILY RF: 0 warfarin 5 mg tablet See Rx Instructions PO .COMPLEX 90 Days Qty: 330 RF: 0 gabapentin 400 mg capsule 400 mg PO QID RF: 0 vitamin E (dl, acetate) 400 unit capsule 400 units PO AMPM RF: 0 bupropion HCl 300 mg tablet extended release 24 hr 300 mg PO QAM RF: 0 vitamin E 1,000 unit Capsule 1,000 unit PO HS RF: 0 Changed insulin aspart U-100 [Novolog PenFill U-100 Insulin] 100 unit/mL cartridge 4 - 6 unit SQ .WITH SUPPER Qty: 0 RF: 0 insulin degludec [Tresiba FlexTouch U-100] 100 unit/mL (3 mL) insulin pen 8 units SQ HS Qty: 0 RF: 0 Stand-Alone Forms: [facility]/Other Patient Handouts: Hypoglycemia Discharge Orders: Discharge Order (Routine); Ordered 08/22/18 Ordered By: Paula Flor Admission Data Admit Date/Time: 08/20/18 05:49 Attending Provider: Aj Umaña Admit Provider: Chai Lees Primary Care Provider: Louie Sanchez Other Providers: Chai Lees Service: Telemetry Medical
== END 2018-08-22 14:54 | disposition home or self-care (01) ==
LOC: 2W 02:52 → ED 02:52 → SUATTDRO 05:49 → 2W 06:26
DX: Z79.1 Long term (current) use of non-steroidal anti-inflammatories (NSAID); Z79.4 Long term (current) use of insulin; I26.99 Other pulmonary embolism without acute cor pulmonale; S09.90XA Unspecified injury of head, initial encounter; E11.649 Type 2 diabetes mellitus with hypoglycemia without coma; Z79.899 Other long term (current) drug therapy; W19.XXXA Unspecified fall, initial encounter; G62.9 Polyneuropathy, unspecified; E03.9 Hypothyroidism, unspecified; E78.5 Hyperlipidemia, unspecified; I10 Essential (primary) hypertension; Z79.01 Long term (current) use of anticoagulants

== ENCOUNTER 2023-10-29 17:07 | Observation (INO) ==
--- NOTE | 2023-10-29 17:24 | ED Triage Note ---
Date of Service October 29, 2023 Provider in Triage Author: Paula Vilchis History of Present Illness This patient was briefly evaluated while in triage. An abbreviated physical exam was performed. This patient is a 73-year-old Female who presents to the ED for evaluation of left sided facial numbness and tingling on the whole left sided of the body. Also reports history of bells palsey on left side, has face droop from this at baseline, but feels this is worse. Having some visual changes as well. Having difficulty walking, uses a cane normally. Had a fall recently and hit head. Takes warfarin for h/o PE. Physical Exam CONSTITUTIONAL: No acute distress. Well appearing. HEENT: Left facial droop, left facial numbness. Slurred speech. RESPIRATORY: Clear to auscultation bilaterally. Equal expansion bilaterally. CARDIOVASCULAR: Regular rate and rhythm. NEUROLOGIC: Alert and oriented X 4. Positive left pronator drift. Patient deemed appropriate for stroke alert, taken directly to B1 for immediate treatment. Please see further documentation for the full ED course.
--- NOTE | 2023-10-29 17:36 | Emergency Department Note ---
Impression & Plan Paresthesias, Leukopenia, Elevated INR, High serum chloride ED Provider Note NAME: BLANK ASHBY AGE: 73 SEX: F : 1950 ARRIVES VIA: Walk-In INFORMANT: Patient ED PROVIDER(S): Oh Willis DO CHIEF COMPLAINT: Left-sided paresthesias HPI: Patient is a 73-year-old female who presents to the ER with a past medical history of CKD, metabolic syndrome, morbid obesity, diabetes, bipolar disorder on Coumadin for left-sided paresthesias on the left face, arm, and leg. She admits to some weakness in the left foot and some weakness in the fingers of the left hand. She denies any change or loss of vision. Does have a headache. No chest pain or shortness of breath. No nausea, vomiting, or diarrhea. No dysuria, urgency, or frequency. ADDITIONAL HISTORY OBTAINED: Additional history obtained from family who is present at bedside who notes that they were not with her today but when they found out they brought her in. Chronic Medical/Social Conditions Affecting Care: Per HPI PAST MEDICAL HISTORY:See Below PAST SURGICAL HISTORY:See Below FAMILY HISTORY:See Below SOCIAL HISTORY:See Below HOME MEDICATIONS:See Below ALLERGIES:See Below VITALS:See Below PHYSICAL EXAMINATION: GENERAL: Sitting up in bed, alert, well appearing, well nourished, no distress, non-toxic EYE EXAM: normal conjunctiva. PERRL and EOM's intact. OROPHARYNX: no exudate, no erythema, lips, buccal mucosa, and tongue normal and mucous membranes are moist NECK: supple, no nuchal rigidity, no adenopathy, non-tender LUNGS: Clear to auscultation. Normal chest wall mechanics HEART: no murmurs, S1 normal and S2 normal ABDOMEN: abdomen soft, non-tender, normo-active bowel sounds, no masses, no rebound or guarding. BACK: Back is symmetrical on inspection and there is no deformity, no midline tenderness, no CVA tenderness. SKIN: no rashes and no bruising UPPER EXTREMITIES: upper extremities are grossly normal. LOWER EXTREMITIES: No pitting edema. NEURO EXAM: Normal sensorium, cranial nerves II-XII intact, normal speech, no weakness of arms, no weakness of legs. No drift. Finger to nose intact. Gross sensation intact. MEDICAL DECISION MAKING: Patient is a 73-year-old female who presents ER as a stroke alert in B1 for left-sided paresthesias which occurred around 130. She notes that she was on Coumadin and she decided check today it was 2.8. IV was established blood work was obtained. External records were reviewed and patient is not a candidate for TNK as she has no objective deficit and INR was 2.8 earlier. UA was clean. CBC shows a mild leukopenia. No significant anemia. INR 2.3. BMP with creatinine 1.4. LFTs, bilirubin, and troponin was negative. Case was discussed with the hospitalist for further evaluation management and treatment. Consults/Care Managements Discussions: Per [facility] Triage Nursing notes reviewed. Limited review of prior medical records performed Vital Signs: reviewed and remarkable for no significant abnormalities Differential diagnosis: Differential Diagnosis includes but is not limited to ischemic Stroke, hemorrhagic stroke, bells palsy, mass, neoplasm, migraine headache, seizure, subarachnoid hemorrhage, TIA, and transient global amnesia. ER treatment provided: See below Diagnostics interpreted by me include EKG and cardiac monitoring as listed below: -Cardiac Monitoring: An order was placed for continuous cardiac monitoring. The monitor shows a rate of 69 with sinus rhythm. -ECG: Sinus rhythm rate of 69 Normal axis No PVCs QTc 437 -Laboratory studies:Interpreted by me as stated above in MDM and shown below. 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 Benign essential hypertension Nocturnal enuresis Tardive dyskinesia History of colon polyps CKD stage 3 due to type 2 diabetes mellitus Morbid obesity Metabolic syndrome Multiple drug allergies Calculus of kidney Tremor Dysphagia Sensorineural hearing loss (SNHL) of left ear with restricted hearing of right ear Secondary hyperparathyroidism pt unaware H/O idiopathic seizure Diabetic peripheral neuropathy associated with type 2 diabetes mellitus Dyslipidemia Post laminectomy syndrome (Acute) Anxiety and depression Phillips's palsy hx of Diabetes mellitus, type II (Chronic) Non-proliferative diabetic retinopathy Sacral neurostimulator in situ Chronic back pain Neuropathy bilateral feet and bilateral fingertips. 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 Current use of intermediate designer anticoagulation (Chronic) Obesity (Acute) Hypothyroidism (Acute) Bipolar disorder (Acute) Memory loss "mild" Fibromyalgia Tinnitus, bilateral severe (worse in the left than right) Balance problem uses a cane Medical History History of urinary incontinence Hearing loss Hx of recurrent urinary tract infection Hx of Phillips's palsy (1973) Stage II pressure ulcer of buttock Tardive dyskinesia Post laminectomy syndrome Hypertension Falls frequently Focal epilepsy with impairment of consciousness H/O idiopathic seizure Tremor Gait disturbance Osteoporosis History of kidney stones Depression Anxiety CKD stage 3 due to type 2 diabetes mellitus Hyperlipidemia Difficulty swallowing Diabetes mellitus, type 2 Pulmonary embolism on right (05/29/13) Surgical History S/P placement of nerve stimulator History of cataract surgery Hx of surgical procedure History of lumbar surgery History of dilatation and curettage History of lithotripsy History of esophagogastroduodenoscopy (EGD) History of colonoscopy History of cholecystectomy Hx of right inguinal hernia repair History of tooth extraction History of tonsillectomy Hx of cervical spine surgery History of cardiac cath History of left mastoidectomy Family History Father Myocardial infarction Other FHx: heart disease Family history of diabetes mellitus No family history of adverse response to anesthesia Denies family history of Ovarian cancer Prostate cancer Breast cancer Colorectal cancer Social History Smoking Status: Never smoker Tobacco Type: Cigarettes Age Started Using Tobacco: 15; Age Quit Using Tobacco: 27; Second Hand Exposure: No; Do You Dip or Chew Tobacco: No; Hx Alcohol Use: No Hx Substance Use: No Preferred Language: Moldovan Communication Ability: Effective Visual Impairment: No Limitations Hearing Ability: Hard of Hearing Forest Path[employer] Teacher Required: No Beliefs That Will Affect Care: None marital status: Current Living Situation: Family Current Living Situation Comment: lives with daughterLin current occupational status: retired Feels Safe at Home: Yes Childhood Exposure to Second-Hand Smoke: Yes Seatbelt Use: always Sunscreen Use: No Assistive Devices: Cane, Denture - Upper and Glasses Allergies Allergies Allergy/AdvReac Type Severity Reaction Status Date / Time amoxicillin [From Augmentin] Allergy Severe Rash Verified 10/25/23 15:50 clavulanic acid Allergy Severe Rash Verified 10/25/23 15:50 [From Augmentin] metoclopramide Allergy Severe facial Verified 10/25/23 15:50 swelling and blisters doxycycline Allergy Intermediate ? Verified 10/25/23 15:50 tetracycline, doxy caused itching (rechallenge 02/2017) fluticasone Allergy Intermediate BURNED Verified 10/25/23 15:50 NASAL PASSAGES Penicillins Allergy Intermediate Rash, hand Verified 10/25/23 15:50 swelling/redness tetracycline Allergy Intermediate ?--long Verified 10/25/23 15:50 time ago, doxy caused itching (rechallenge 02/2017) tolterodine Allergy Intermediate HIVES Verified 10/25/23 15:50 triamcinolone [From Kenalog] Allergy Intermediate Rash Verified 10/25/23 15:50 Tetracyclines Allergy Unknown Unknown Verified 10/25/23 15:50 Home Meds Home Medications Medication Instructions Recorded Confirmed bupropion HCl 150 mg 24 hr tablet, 150 mg PO QAM 03/06/18 10/29/23 extended release (Wellbutrin XL) bupropion HCl 300 mg 24 hr tablet, 300 mg PO QAM 08/20/18 10/29/23 extended release (Wellbutrin XL) propranolol 40 mg tablet 40 mg PO BID 06/25/19 10/29/23 lamotrigine 150 mg tablet 150 mg PO HS 09/28/19 10/29/23 (Lamictal) cholecalciferol (vitamin D3) 25 2,000 unit PO HS 05/09/20 10/29/23 mcg (1,000 unit) capsule cranberry 400 mg capsule 400 mg PO QPM 06/08/21 10/29/23 clozapine 50 mg tablet (Clozaril) 50 mg PO QPM 08/15/22 10/29/23 naltrexone 50 mg tablet 100 mg PO QAM 08/23/23 10/29/23 cyanocobalamin (vitamin B-12) 1,000 mcg PO QAM 10/02/23 10/29/23 1,000 mcg tablet (Vitamin B-12) donepezil 5 mg tablet (Aricept) 5 mg PO HS 10/02/23 10/29/23 rosuvastatin 20 mg tablet (Crestor) 20 mg PO HS 10/02/23 10/29/23 tirzepatide 5 mg/0.5 mL 5 mg subcut WK 10/02/23 10/29/23 subcutaneous pen injector (Mounjaro) topiramate 50 mg tablet (Topamax) 50 mg PO HS 10/02/23 10/29/23 Previous Rx's Medication Instructions Recorded TRUEplus Lancets 33 gauge (lancets) #300 ea 06/27/21 albuterol sulfate 90 mcg/actuation 2 puff inhalation Q4H PRN 11/07/22 aerosol inhaler shortness of breath #1 inhaler ipratropium bromide 42 mcg (0.06 2 spray intranasal BID #15 mL 02/19/23 %) nasal spray lancets 33 gauge (TRUEplus Lancets) #300 ea 02/22/23 blood sugar diagnostic (OneTouch #200 ea 06/06/23 Verio test strips) blood-glucose meter (OneTouch #1 ea 06/06/23 Verio Flex Meter) lancets 30 gauge (OneTouch Delica #200 ea 06/06/23 Plus Lancet) warfarin 5 mg tablet See Rx Instructions PO UD 90 days 06/10/23 #180 tabs gabapentin 800 mg tablet 800 mg PO TID #90 tabs 07/17/23 levothyroxine 50 mcg tablet 50 mcg PO QAM 90 days #90 tabs 08/23/23 calcitriol 0.25 mcg capsule 0.25 mcg PO 3XWK #36 caps 10/14/23 (Rocaltrol) dapagliflozin propanediol 10 mg 10 mg PO QAM #90 tabs 10/15/23 tablet (Farxiga) cephalexin 500 mg capsule 500 mg PO BID 7 days #14 caps 10/25/23 Results & Data (ED) Vital Signs Vital Signs - 24 hr 10/29/23 17:19 10/29/23 17:55 10/29/23 18:10 Temperature 36.9 C Temperature Source Temporal Artery Scan Pulse Rate 70 Pulse Rate [Apical] 66 69 Respiratory Rate 18 21 20 Respiratory Effort / Characteristics Non-Labored Spontaneous Non-Labored Spontaneous Non-Labored Spontaneous Respiratory Depth Normal Normal Normal Blood Pressure 166/67 H Blood Pressure [Right Arm] 141/83 H 157/73 H Blood Pressure Mean 100 Blood Pressure Mean [Right Arm] 102 101 Blood Pressure Position Sitting Pulse Oximetry 95 93 93 Oxygen Delivery Method Room Air Room Air Sepsis Recent Fever Within 48 Hours No Sepsis New/Unexplained Change in Mental Status N/A Sepsis Action Taken by Nursing No Action Required Laboratory Data 10/29/23 17:32 10/29/23 17:32 Lab Results 10/29/23 10/29/23 10/29/23 Range/Units 17:32 17:36 17:45 WBC 4.65 L (4.8-10.8) K/ul RBC 4.25 (4.20-5.40) M/uL Hgb 13.5 (12.0-16.0) g/dl POC Hgb 13.9 (12.0-16.0) g/dl Hct 41.1 (37.0-47.0) % POC Hct 41 (37-47) % MCV 96.7 (80.0-100.0) fL MCH 31.8 (25.0-34.0) pg MCHC 32.8 (32.0-36.0) g/dL RDW Std Deviation 46.1 (36.4-46.3) fL RDW Coeff of Jennifer 12.9 (11.5-14.5) % Plt Count 208 (130-400) K/uL MPV 8.7 L (9.4-12.4) fL Immature Gran % (Auto) 0.2 % Neut % (Auto) 50.9 % Lymph % (Auto) 35.1 % Lanier % (Auto) 11.0 % Eos % (Auto) 2.6 % Baso % (Auto) 0.2 % Neut # (Auto) 2.37 (1.40-6.50) K/uL Lymph # (Auto) 1.63 (1.20-3.40) K/uL Lanier # (Auto) 0.51 (0.11-0.59) K/uL Eos # (Auto) 0.12 (0.00-0.50) K/uL Baso # (Auto) 0.01 (0.00-0.20) K/uL Immature Gran # (Auto) 0.01 (0.01-0.20) K/uL PT 23.3 H (9.0-12.0) Seconds INR 2.3 H (0.9-1.1) APTT 45 H (21-31) Seconds PTT Ratio 1.7 POC Sodium 143 (135-144) mmol/L Sodium 141 (136-145) mmol/L POC Potassium 4.5 (3.3-5.0) mmol/L Potassium 4.4 (3.5-5.1) mmol/L POC Chloride 109 (101-112) mmol/L Chloride 110 H (98-107) mmol/L Carbon Dioxide 26 (21-32) mmol/L POC Total CO2 23 L (24-31) mmol/L Anion Gap 5 (3-11) POC Anion Gap 17.0 (16-25) mmol/L POC BUN 24 H (7-18) mg/dl BUN 26 H (6-23) mg/dl Creatinine 1.45 H (0.6-1.2) mg/dl POC Creatinine 1.6 H (0.6-1.3) mg/dl Est Cr Clr Drug Dosing 39.5 ml/min Est GFR ( Amer) 41.9 ml/min Est GFR (Non-Af Amer) 36.1 ml/min BUN/Creatinine Ratio 17.9 (10-20) Glucose 87 (70-99(Fasting)) mg/dl POC Glucose 95 (70-99) mg/dl POC Glucose (other) 87 (70-99) mg/dl Calcium 9.3 (8.6-10.3) mg/dl POC Ioniz Calcium Yoel 1.25 (1.12-1.32) mmol/l Magnesium 2.3 (1.7-2.4) mg/dl Total Bilirubin 0.3 (0.2-1.0) mg/dl AST 37 (13-39) U/L ALT 41 (7-52) U/L Alkaline Phosphatase 68 (34-104) U/L Troponin I High Sens 5.7 (0-14) pg/ml Total Protein 6.9 (6.0-8.3) gm/dl Albumin 4.1 (3.4-5.0) gm/dl Globulin 2.8 (2.5-4.0) gm/dl Albumin/Globulin Ratio 1.5 (0.9-2) Blood Type A Positive Antibody Screen NEGATIVE Administered Medications Gabapentin (Gabapentin 800 Mg Tab) 800 mg PO TID XOCHILT Stop: 11/28/23 21:04 Last Admin: 10/29/23 21:34 Dose: Not Given Documented By: EM Lamotrigine (Lamotrigine 100 Mg Tab) 150 mg PO HS XOCHILT Stop: 11/28/23 21:04 Last Admin: 10/29/23 21:34 Dose: Not Given Documented By: EM Propranolol HCl (Propranolol Hcl 20 Mg Tab) 40 mg PO BID XOCHILT Stop: 11/28/23 21:04 Last Admin: 10/29/23 21:34 Dose: Not Given Documented By: EM Rosuvastatin Calcium (Rosuvastatin Calcium 20 Mg Tab) 20 mg PO HS XOCHILT Stop: 11/28/23 21:04 Last Admin: 10/29/23 21:34 Dose: Not Given Documented By: EM Topiramate (Topiramate 50 Mg Tab) 50 mg PO HS [facility] Stop: 11/28/23 21:04 Last Admin: 10/29/23 21:34 Dose: Not Given Documented By: EM Discontinued Medications Sodium Chloride (Nss) 1,000 mls @ 999 mls/hr IV .Q1H1M ONE Stop: 10/29/23 19:59 Last Admin: 10/29/23 19:09 Dose: 999 mls/hr Documented By: EM Ceftriaxone Sodium (Rocephin) 2,000 mg in 50 mls @ 100 mls/hr IV NOW STA Stop: 10/29/23 20:42 Last Admin: 10/29/23 20:42 Dose: 100 mls/hr Documented By: EM Ioversol (Optiray 320 125ml) 120 ml IV ONCE ONE Stop: 10/29/23 17:47 Last Admin: 10/29/23 17:48 Dose: 120 ml Documented By: ASPEN Imaging Data Radiologist's Impression: Head CT 10/29/23 17:33 CT head/brain wo con CLINICAL HISTORY: neuro deficit, acute stroke suspected Technique: Contiguous axial CT images of the head were acquired from the base of the skull to the vertex without intravenous contrast administration. Images were viewed in brain, subdural and bone windows. Automated dose lowering techniques and/or adjustment according to patient size were utilized for this exam. Comparison: None available at the time of this dictation. Findings: The ventricles, basal cisterns, and cerebral sulci are normal. There is no acute intracranial hemorrhage or evidence of acute territorial infarction. Neither mass effect, shift of the midline structures, nor abnormal extra-axial fluid collections are shown. Imaged portions of the paranasal sinuses and mastoid air cells are clear. The orbits appear normal. There are no acute fractures of the calvaria or scalp swelling. Impression: No acute intracranial hemorrhage, no evidence of acute territorial infarction or other acute intracranial disease process. ACT 112: Negative or not required by law. Electronically signed by: Morris Alonso M.D. 10/29/2023 6:00 PM Head CTA 10/29/23 17:33 CT angio neck with con, CT angio head w con CLINICAL HISTORY: neuro deficit, acute stroke suspected TECHNIQUE: CT angiography of the head and neck was performed following intravenous administration of iodinated contrast. Coronal and sagittal MIPS were obtained from the axial data set and were submitted for review. Automated dose lowering techniques and/or adjustment according to patient size were utilized for this examination. All measurements were calculated based on NASCET criteria. CT DOSE: 1186.75 mGy.cm Comparison: None available at the time of this dictation. FINDINGS: Small thyroid nodules are seen which do not require follow-up by ACR criteria. CTA Neck: A 3 vessel aortic arch is shown. There is no significant atherosclerotic plaque in the aortic arch or the origins of the innominate, left common carotid, and left subclavian arteries. The common carotid, external carotid, cervical segments of the internal carotid arteries, and the cervical segments of the vertebral arteries are patent without hemodynamically significant stenosis. The left vertebral artery is dominant. CTA Head: The anterior and posterior cerebral circulations are patent. origin of the bilateral posterior cerebral arteries noted. IMPRESSION: 1. No occlusion, hemodynamically significant stenosis, or dissection in the major cervical arteries. 2. No occlusion, hemodynamically significant stenosis, aneurysm, dissection, or arteriovenous malformation in the major intracranial arteries. Assessment of stenosis of the internal carotid arteries is based on NASCET criteria. ACT 112: Negative or not required by law. Electronically signed by: Morris Alonso M.D. 10/29/2023 6:03 PM Neck CTA 10/29/23 17:33 CT angio neck with con, CT angio head w con CLINICAL HISTORY: neuro deficit, acute stroke suspected TECHNIQUE: CT angiography of the head and neck was performed following intravenous administration of iodinated contrast. Coronal and sagittal MIPS were obtained from the axial data set and were submitted for review. Automated dose lowering techniques and/or adjustment according to patient size were utilized for this examination. All measurements were calculated based on NASCET criteria. CT DOSE: 1186.75 mGy.cm Comparison: None available at the time of this dictation. FINDINGS: Small thyroid nodules are seen which do not require follow-up by ACR criteria. CTA Neck: A 3 vessel aortic arch is shown. There is no significant atherosclerotic plaque in the aortic arch or the origins of the innominate, left common carotid, and left subclavian arteries. The common carotid, external carotid, cervical segments of the internal carotid arteries, and the cervical segments of the vertebral arteries are patent without hemodynamically significant stenosis. The left vertebral artery is dominant. CTA Head: The anterior and posterior cerebral circulations are patent. origin of the bilateral posterior cerebral arteries noted. IMPRESSION: 1. No occlusion, hemodynamically significant stenosis, or dissection in the major cervical arteries. 2. No occlusion, hemodynamically significant stenosis, aneurysm, dissection, or arteriovenous malformation in the major intracranial arteries. Assessment of stenosis of the internal carotid arteries is based on NASCET criteria. ACT 112: Negative or not required by law. Electronically signed by: Morris Alonso M.D. 10/29/2023 6:03 PM Discharge Plan Visit Data Chief Complaint: TIA Symptoms Stated Complaint: LT FACIAL NUMBNESS, CONFUSION, UNBALANCED ED Provider: Oh Willis Discharge Problem: Paresthesias, Leukopenia, Elevated INR, High serum chloride Patient Disposition: Admitted As Inpatient Discharge Instructions Interventions: ED Discharge Assessment Last Done: 10/29/23 21:06 Discharge Problem: Leukopenia Qualifiers: Leukopenia type: unspecified Qualified Code(s): D72.819 - Decreased white blood cell count, unspecified
[2023-10-29 17:42] LABS: Basophils # (auto) 0.01 K/uL (0.00-0.20); Basophils % (auto) 0.2 %; Eosinophils # (auto) 0.12 K/uL (0.00-0.50); Eosinophils % (auto) 2.6 %; Hematocrit (blood only) 41.1 % (37.0-47.0); Hemoglobin 13.5 g/dl (12.0-16.0); Immature Granulocytes # (auto) 0.01 K/uL (0.01-0.20); Immature Granulocytes % (auto) 0.2 %; Lymphocytes # (auto) 1.63 K/uL (1.20-3.40); Lymphocytes % (auto) 35.1 %; Mean Corpuscular Hemoglobin 31.8 pg (25.0-34.0); Mean Corpuscular Hgb Conc 32.8 g/dL (32.0-36.0); Mean Corpuscular Volume 96.7 fL (80.0-100.0); Mean Platelet Volume 8.7 fL (9.4-12.4); Monocytes # (auto) 0.51 K/uL (0.11-0.59); Neutrophils # (auto) 2.37 K/uL (1.40-6.50); Neutrophils % (auto) 50.9 %; Platelet Count 208 K/uL (130-400); RDW Coefficient of Variation 12.9 % (11.5-14.5); RDW Standard Deviation 46.1 fL (36.4-46.3); Red Blood Count 4.25 M/uL (4.20-5.40); White Blood Count 4.65 K/ul (4.8-10.8)
[2023-10-29] MEDS: OPTIRAY 320 125ml IV ONE (17:48)
[2023-10-29 17:53] LABS: INR 2.3 (0.9-1.1); Partial Thromboplastin Ratio 1.7; Partial Thromboplastin Time 45 Seconds (21-31); Prothrombin Time 23.3 Seconds (9.0-12.0)
[2023-10-29 17:59] LABS: iSTAT Creatinine 1.6 mg/dl (0.6-1.3); iSTAT Hemoglobin 13.9 g/dl (12.0-16.0); iSTAT Ionized Calcium 1.25 mmol/l (1.12-1.32); iSTAT Potassium 4.5 mmol/L (3.3-5.0)
--- NOTE | 2023-10-29 18:02 | CT Scan Report ---
CT head/brain wo con CLINICAL HISTORY: neuro deficit, acute stroke suspected Technique: Contiguous axial CT images of the head were acquired from the base of the skull to the isaiah alexandra without intravenous contrast administration. Images were viewed in brain, subdural and [facility]. Automated dose lowering techniques and/or adjustment according to patient size were utilized for this exam. Comparison: None available at the time of this dictation. Findings: The ventricles, basal cisterns, and cerebral sulci are normal. There is no acute intracranial hemorrh age or evidence of acute territorial infarction. Neither mass effect, shift of the midline structures , nor abnormal extra-axial fluid collections are shown. Imaged portions of the paranasal sinuses and mastoid air cells are clear. The orbits appear normal. There are no acute fractures of the calvaria or scalp swelling. Impression: No acute intracranial hemorrhage, no evidence of acute territorial infarction or other acute intracra nial disease process. ACT 112: Negative or not required by law. Electronically signed by: Morris Alonso M.D. 10/29/2023 6:00 PM
--- NOTE | 2023-10-29 18:06 | CT Scan Report ---
CT angio neck with con, CT angio head w con CLINICAL HISTORY: neuro deficit, acute stroke suspected TECHNIQUE: CT angiography of the head and neck was performed following intravenous administration of iodinated contrast. Coronal and sagittal MIPS were obtained from the axial data set and were submitt ed for review. Automated dose lowering techniques and/or adjustment according to patient size were u tilized for this examination. All measurements were calculated based on NASCET criteria. CT DOSE: 1186.75 mGy.cm Comparison: None available at the time of this dictation. FINDINGS: Small thyroid nodules are seen which do not require follow-up by ACR criteria. CTA Neck: A 3 vessel aortic arch is shown. There is no significant atherosclerotic plaque in the aor tic arch or the origins of the innominate, left common carotid, and left subclavian arteries. The co mmon carotid, external carotid, cervical segments of the internal carotid arteries, and the cervical segments of the vertebral arteries are patent without hemodynamically significant stenosis. The left vertebral artery is dominant. CTA Head: The anterior and posterior cerebral circulations are patent. origin of the bilateral posterior cerebral arteries noted. IMPRESSION: 1. No occlusion, hemodynamically significant stenosis, or dissection in the major cervical arteries. 2. No occlusion, hemodynamically significant stenosis, aneurysm, dissection, or arteriovenous malfor mation in the major intracranial arteries. Assessment of stenosis of the internal carotid arteries is based on NASCET criteria. ACT 112: Negative or not required by law. Electronically signed by: Morris Alonso M.D. 10/29/2023 6:03 PM
[2023-10-29 18:12] LABS: Albumin Globulin Ratio 1.5 (0.9-2); Albumin Level 4.1 gm/dl (3.4-5.0); BUN Creatinine Ratio 17.9 (10-20); Bilirubin,Total 0.3 mg/dl (0.2-1.0); Calcium 9.3 mg/dl (8.6-10.3); Creatinine Clr Calc Pharmacy 39.5 ml/min; Est GFR (African American) 41.9 ml/min; Est GFR (Non-African American) 36.1 ml/min; Globulin 2.8 gm/dl (2.5-4.0); Magnesium 2.3 mg/dl (1.7-2.4); Potassium 4.4 mmol/L (3.5-5.1); Total Protein 6.9 gm/dl (6.0-8.3)
[2023-10-29 18:15] LABS: Troponin I High Sensitivity 5.7 pg/ml (0-14)
--- NOTE | 2023-10-29 18:39 | History & Physical Report ---
Date of Service October 29, 2023 Assessment & Plan (1) Stroke-like symptoms: Plan: -Admit to the PCU on tele -Currently stable but still with persistent symptoms for which she presented with -Her differential is broad at this time including CVA, partial seizure, infectio n, complex migraine, anxiety -Low suspicion for Phillips's palsy at this time as the patient is able to wrinkle her forehead and raise her eyebrows -CT of the head/brain and CTA of the head/neck were read as negative for acute findings -Patient with bladder stimulator which will need to be placed into MRI mode prior to obtaining MRI of the head/brain >Patient will try and contact her Daughter to get the contact information for the bladder stimulator rep tomorrow -Will consult Neurology for assistance with further workup/treatment -Will allow permissive HTN overnight, q4h neuro checks -Patient failed her dysphagia screen, will keep NPO until she is evaluated by Speech tomorrow -Fall/aspiration precautions -Will obtain CXR/UA for further evaluation of infection -Home Warfarin for DVT PPX -AM CBC, CMP, mag, PT/INR, A1c, Fasting Lipid Panel (2) UTI (urinary tract infection): Plan: -Patient was diagnosed with a UTI by her PCP on 10/24, unfortunately a culture was never obtained -Has been taking BID Keflex and feels as though her UTI symptoms have been improving -Will switch her to Ceftriaxone while NPO -Follow repeat UA, if no concerning findings could plan to continue her original Keflex course when able to take PO intake (3) Benign essential hypertension: Plan: -Stable -Will allow permissive HTN until MRI of the brain is obtained (4) Diabetes mellitus, type II: Plan: -Monitor BSG q6h while npo, goal is 110-160 -Hold Dapagliflozin -Start CF 50 and CR 15 q6h for now -Adjust regimen as needed (5) Hypothyroidism: Plan: -Continue levothyroxine when able (6) Bipolar disorder: Plan: -Continue Clozapine, Wellbutrin, Lamictal when able (7) 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 Lund at the time of the admission History of Present Illness Chief Complaint: Stroke alert Primary Care Provider: JaylaDO Uday Omer is a 73 year old female with a PMH significant for DMII, HTN, previous PE (on Warfarin), hypothyroidism, stage 3 CKD, bipolar disorder, idiopathic seizure, tardive dyskinesia, neurogenic bladder S/P bladder stimulator placement, memory loss who presented to the [facility] via EMS on 10/29/23 as a stroke alert after she developed acute onset of left sided facial numbness, left sided paresthesias, increased ambulatory dysfunction, and word finding difficulty around 1430 this afternoon. On arrival to the ED the patient was noted to bed hypertensive at 166/67 but was otherwise stable. Labs including CBC, CMP, high sen trop, and INR were unremarkable. CT of the head/brain wo con and CTA of the head/neck were read as negative for acute findings. The patient was given no medications prior to admission. At the time of the exam the patient was sitting in bed in no acute distress, family had gone home prior to my exam. Patient states that she noticed left facial numbness, left upper/lower extremity paresthesias/weakness, blurry vision in the BL eyes, and the sensation the her left eye was being pulled to the left. These symptoms started around 1330, while she was driving to the anticoagulation clinic. She noticed that she was driving more erratic than normal. She was having increased ambulatory dysfunction with the onset of her other symptoms and has been experiencing a left-sided headache. When asked about her seizure history, she states that she was diagnosed with complex, partial seizures in the . He symptoms would usually be starring off and being less responsive. She had all of her am medications today and has been taking her BID Keflex as prescribed. She denies recent fever, chills, chest pain, cough, SOB, hemoptysis, abd pain, nausea, vomiting, diarrhea, dysuria, hematuria, melena, LE swelling, and recent trauma. She is a full code, and her daughter, Lin, would make decisions for her if she cannot make them herself. The patient was recently diagnosed with a UTI and started on a 7 day course of Keflex on 10/25/23. Per review of her last Neurology clinic note from 09/13/23, she was diagnosed with a concussion in August of 2023 and had been experiencing ongoing headaches which were mainly on the left side of her head. Of note, the patient was supposed to have an MRI of the brain on 10/02/23 for her ongoing headaches. She is able to have MRI's with her bladder stimulator, however, it needs to be set in a certain mode prior. She states that she brought paperwork with instructions to change the mode on 10/01 but they were unable to do so. She has the contact information for the stimulator company in her Phone, but her phone is with her daughter so she will need to call her daughter to get the number. The patient was discussed with Dr. Lund at the time of the admission Allergies Allergy/AdvReac Type Severity Reaction Status Date / Time amoxicillin [From Augmentin] Allergy Severe Rash Verified 10/25/23 15:50 clavulanic acid Allergy Severe Rash Verified 10/25/23 15:50 [From Augmentin] metoclopramide Allergy Severe facial Verified 10/25/23 15:50 swelling and blisters doxycycline Allergy Intermediate ? Verified 10/25/23 15:50 tetracycline, doxy caused itching (rechallenge 02/2017) fluticasone Allergy Intermediate BURNED Verified 10/25/23 15:50 NASAL PASSAGES Penicillins Allergy Intermediate Rash, hand Verified 10/25/23 15:50 swelling/redness tetracycline Allergy Intermediate ?--long Verified 10/25/23 15:50 time ago, doxy caused itching (rechallenge 02/2017) tolterodine Allergy Intermediate HIVES Verified 10/25/23 15:50 triamcinolone [From Kenalog] Allergy Intermediate Rash Verified 10/25/23 15:50 Tetracyclines Allergy Unknown Unknown Verified 10/25/23 15:50 Home Medications Medication Instructions Recorded Confirmed Type bupropion HCl 150 mg 24 hr tablet, 150 mg PO QAM 03/06/18 10/29/23 History extended release (Wellbutrin XL) bupropion HCl 300 mg 24 hr tablet, 300 mg PO QAM 08/20/18 10/29/23 History extended release (Wellbutrin XL) propranolol 40 mg tablet 40 mg PO BID 06/25/19 10/29/23 History lamotrigine 150 mg tablet 150 mg PO HS 09/28/19 10/29/23 History (Lamictal) cholecalciferol (vitamin D3) 25 2,000 unit PO HS 05/09/20 10/29/23 History mcg (1,000 unit) capsule cranberry 400 mg capsule 400 mg PO QPM 06/08/21 10/29/23 History TRUEplus Lancets 33 gauge (lancets) #300 ea 06/27/21 10/29/23 Rx clozapine 50 mg tablet (Clozaril) 50 mg PO QPM 08/15/22 10/29/23 History albuterol sulfate 90 mcg/actuation 2 puff inhalation Q4H PRN 11/07/22 10/29/23 Rx aerosol inhaler shortness of breath #1 inhaler ipratropium bromide 42 mcg (0.06 2 spray intranasal BID #15 mL 02/19/23 10/29/23 Rx %) nasal spray lancets 33 gauge (TRUEplus Lancets) #300 ea 02/22/23 10/29/23 Rx blood sugar diagnostic (OneTouch #200 ea 06/06/23 10/29/23 Rx Verio test strips) blood-glucose meter (OneTouch #1 ea 06/06/23 10/29/23 Rx Verio Flex Meter) lancets 30 gauge (OneTouch Delica #200 ea 06/06/23 10/29/23 Rx Plus Lancet) warfarin 5 mg tablet See Rx Instructions PO UD 90 days 06/10/23 10/29/23 Rx #180 tabs gabapentin 800 mg tablet 800 mg PO TID #90 tabs 07/17/23 10/29/23 Rx levothyroxine 50 mcg tablet 50 mcg PO QAM 90 days #90 tabs 08/23/23 10/29/23 Rx naltrexone 50 mg tablet 100 mg PO QAM 08/23/23 10/29/23 History cyanocobalamin (vitamin B-12) 1,000 mcg PO QAM 10/02/23 10/29/23 History 1,000 mcg tablet (Vitamin B-12) donepezil 5 mg tablet (Aricept) 5 mg PO HS 10/02/23 10/29/23 History rosuvastatin 20 mg tablet (Crestor) 20 mg PO HS 10/02/23 10/29/23 History tirzepatide 5 mg/0.5 mL 5 mg subcut WK 10/02/23 10/29/23 History subcutaneous pen injector (Christin) topiramate 50 mg tablet (Topamax) 50 mg PO HS 10/02/23 10/29/23 History calcitriol 0.25 mcg capsule 0.25 mcg PO 3XWK #36 caps 10/14/23 10/29/23 Rx (Rocaltrol) dapagliflozin propanediol 10 mg 10 mg PO QAM #90 tabs 10/15/23 10/29/23 Rx tablet (Farxiga) cephalexin 500 mg capsule 500 mg PO BID 7 days #14 caps 10/25/23 10/29/23 Rx Past Med/Surg History Problem List (Updated 10/30/23 @ 10:07 by Ray Christianson MD) Focal epilepsy with impairment of consciousness reports no seizure activity since 2018 > follows with Dr. Martinez Numbness and tingling of left arm and leg Left-sided weakness Seizure-like activity High serum chloride (Acute) Elevated INR (Acute) Leukopenia (Acute) Paresthesias (Acute) Stroke-like symptoms Urinary urgency Encounter for pre-operative examination Thickened nails Diabetic foot Right knee DJD Degenerative joint disease of right hip Benign essential hypertension Nocturnal enuresis Tardive dyskinesia History of colon polyps CKD stage 3 due to type 2 diabetes mellitus Morbid obesity Metabolic syndrome Multiple drug allergies Calculus of kidney Tremor Dysphagia Sensorineural hearing loss (SNHL) of left ear with restricted hearing of right ear Secondary hyperparathyroidism pt unaware H/O idiopathic seizure Diabetic peripheral neuropathy associated with type 2 diabetes mellitus Dyslipidemia Post laminectomy syndrome (Acute) Anxiety and depression Phillips's palsy hx of Diabetes mellitus, type II (Chronic) Non-proliferative diabetic retinopathy Sacral neurostimulator in situ Chronic back pain Neuropathy bilateral feet and bilateral fingertips. 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 Tardive dyskinesia Post laminectomy syndrome Hypertension Falls frequently last fall August 2023 - pt to have an MRI of head since last fall she has been having headaches. follows with Dr Martinez. Focal epilepsy with impairment of consciousness reports no seizure activity since 2019 > follows with Dr. Martinez H/O idiopathic seizure pt unaware Tremor benign bilateral hands Gait disturbance Osteoporosis History of kidney stones Depression Anxiety CKD stage 3 due to type 2 diabetes mellitus follows with Dr[address] Gracia Hyperlipidemia Difficulty swallowing Diabetes mellitus, type 2 NIDDM Pulmonary embolism on right (05/29/13) ~2012, reason for Warfarin. unknown cause. Surgical History S/P placement of nerve stimulator 06/2023 sacral neuromodulator History of cataract surgery bilateral Hx of surgical procedure bone stimulator > lumbar > 2006 - no longer active sacral neuromodulator trial 06/10/23, first and second stages completed 06/2023 with lead revision in August 2023 History of lumbar surgery x2 fusion unsure of level History of dilatation and curettage History of lithotripsy History of esophagogastroduodenoscopy (EGD) History of colonoscopy with polypectomy History of cholecystectomy Hx of right inguinal hernia repair History of tooth extraction History of tonsillectomy Hx of cervical spine surgery Laminectomy (no hardware) but states ROM limited all directions History of cardiac cath [facility] > > no stents History of left mastoidectomy Family History (Updated 10/30/23 @ 09:50 by Ray Christianson MD) Father , of an MS at uncertain age. Myocardial infarction Mother , age 85 of pulmonary issues. Lung disease Other FHx: heart disease Family history of diabetes mellitus No family history of adverse response to anesthesia Denies family history of Ovarian cancer Prostate cancer Breast cancer Colorectal cancer Social History (Updated 10/30/23 @ 09:51 by Ray Christianson MD) Smoking Status: Former smoker Tobacco Type: Cigarettes Age Started Using Tobacco: 15; Age Quit Using Tobacco: 27; Second Hand Exposure: No; Do You Dip or Chew Tobacco: No; Hx Alcohol Use: No Hx Substance Use: No Preferred Language: Indonesian Communication Ability: Effective Visual Impairment: No Limitations Hearing Ability: Hard of Hearing Field Clinical Engineer Required: No Beliefs That Will Affect Care: None marital status: Current Living Situation: Family and Significant Other Current Living Situation Comment: lives with daughterLin current occupational status: retired current occupation: Former RN DOCUMENT IMPROVEMENT, 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 41 Feels Safe at Home: Yes Safety Concerns: Feels Safe At This Time Childhood Exposure to Second-Hand Smoke: Yes Seatbelt Use: always Sunscreen Use: No Assistive Devices: None Physical Exam Physical Exam: Physical Exam: General: In no acute distress, stated age, chronically ill appearing but non- toxic appearing HEENT: Patient noted to have mild left facial droop, no scleral icterus, pupils around round, symmetrical, and reactive to light, dry mucus membranes, trachea midline, no thyromegaly Chest/Pulm: No respiratory distress, symmetrical chest expansion, clear breath sounds throughout Cardiac: RRR, no murmurs noted Abdomen: Negative for ascites and bruising, normoactive bowel sounds, soft, non-tender to palpation throughout Musculoskeletal: Symmetrical and without signs of acute trauma, upper and lower extremities, left upper and lower extremity with slight weakness compared to right Extremities: Radial, dorsalis pedis, and posterior tibial pulses are intact and symmetrical, no edema noted in the BL LE's Skin: Warm, dry, no rashes , lesions, or scars noted Neuro: Alert and oriented to person, place, month, year, and president, mild left facial droop, CN II-XII tested noted to have BL double vision with EOM testing, otherwise CN are intact, patient with positive pronator drift and cerebellar testing in the LUE, RUE WNL, no tremors noted Psych: No acute distress, calm and cooperative during the exam Results & Data Results & Data Vital Signs (Past 12 Hours) Vital Signs Temp Pulse Pulse Resp BP BP Pulse Ox 10/29/23 18:10 69 20 157/73 H 93 10/29/23 17:55 66 21 141/83 H 93 10/29/23 17:19 36.9 C 70 18 166/67 H 95 O2 Del Method 10/29/23 18:10 Room Air 10/29/23 17:55 10/29/23 17:19 Room Air Laboratory Results Abnormal lab results 10/29/23 10/29/23 Range/Units 17:32 17:45 WBC 4.65 L (4.8-10.8) K/ul MPV 8.7 L (9.4-12.4) fL PT 23.3 H (9.0-12.0) Seconds INR 2.3 H (0.9-1.1) APTT 45 H (21-31) Seconds Chloride 110 H (98-107) mmol/L POC Total CO2 23 L (24-31) mmol/L POC BUN 24 H (7-18) mg/dl BUN 26 H (6-23) mg/dl Creatinine 1.45 H (0.6-1.2) mg/dl POC Creatinine 1.6 H (0.6-1.3) mg/dl Diagnostic Findings Head CT 10/29/23 17:33 CT head/brain wo con CLINICAL HISTORY: neuro deficit, acute stroke suspected Technique: Contiguous axial CT images of the head were acquired from the base of the skull to the vertex without intravenous contrast administration. Images were viewed in brain, subdural and bone windows. Automated dose lowering techniques and/or adjustment according to patient size were utilized for this exam. Comparison: None available at the time of this dictation. Findings: The ventricles, basal cisterns, and cerebral sulci are normal. There is no acute intracranial hemorrhage or evidence of acute territorial infarction. Neither mass effect, shift of the midline structures, nor abnormal extra-axial fluid collections are shown. Imaged portions of the paranasal sinuses and mastoid air cells are clear. The orbits appear normal. There are no acute fractures of the calvaria or scalp swelling. Impression: No acute intracranial hemorrhage, no evidence of acute territorial infarction or other acute intracranial disease process. ACT 112: Negative or not required by law. Electronically signed by: Morris Alonso M.D. 10/29/2023 6:00 PM Head CTA 10/29/23 17:33 CT angio neck with con, CT angio head w con CLINICAL HISTORY: neuro deficit, acute stroke suspected TECHNIQUE: CT angiography of the head and neck was performed following intravenous administration of iodinated contrast. Coronal and sagittal MIPS were obtained from the axial data set and were submitted for review. Automated dose lowering techniques and/or adjustment according to patient size were utilized for this examination. All measurements were calculated based on NASCET criteria. CT DOSE: 1186.75 mGy.cm Comparison: None available at the time of this dictation. FINDINGS: Small thyroid nodules are seen which do not require follow-up by ACR criteria. CTA Neck: A 3 vessel aortic arch is shown. There is no significant atherosclerotic plaque in the aortic arch or the origins of the innominate, left common carotid, and left subclavian arteries. The common carotid, external carotid, cervical segments of the internal carotid arteries, and the cervical segments of the vertebral arteries are patent without hemodynamically significant stenosis. The left vertebral artery is dominant. CTA Head: The anterior and posterior cerebral circulations are patent. origin of the bilateral posterior cerebral arteries noted. IMPRESSION: 1. No occlusion, hemodynamically significant stenosis, or dissection in the major cervical arteries. 2. No occlusion, hemodynamically significant stenosis, aneurysm, dissection, or arteriovenous malformation in the major intracranial arteries. Assessment of stenosis of the internal carotid arteries is based on NASCET criteria. ACT 112: Negative or not required by law. Electronically signed by: Morris Alonso M.D. 10/29/2023 6:03 PM Neck CTA 10/29/23 17:33 CT angio neck with con, CT angio head w con CLINICAL HISTORY: neuro deficit, acute stroke suspected TECHNIQUE: CT angiography of the head and neck was performed following intravenous administration of iodinated contrast. Coronal and sagittal MIPS were obtained from the axial data set and were submitted for review. Automated dose lowering techniques and/or adjustment according to patient size were utilized for this examination. All measurements were calculated based on NASCET criteria. CT DOSE: 1186.75 mGy.cm Comparison: None available at the time of this dictation. FINDINGS: Small thyroid nodules are seen which do not require follow-up by ACR criteria. CTA Neck: A 3 vessel aortic arch is shown. There is no significant atherosclerotic plaque in the aortic arch or the origins of the innominate, left common carotid, and left subclavian arteries. The common carotid, external carotid, cervical segments of the internal carotid arteries, and the cervical segments of the vertebral arteries are patent without hemodynamically significant stenosis. The left vertebral artery is dominant. CTA Head: The anterior and posterior cerebral circulations are patent. origin of the bilateral posterior cerebral arteries noted. IMPRESSION: 1. No occlusion, hemodynamically significant stenosis, or dissection in the major cervical arteries. 2. No occlusion, hemodynamically significant stenosis, aneurysm, dissection, or arteriovenous malformation in the major intracranial arteries. Assessment of stenosis of the internal carotid arteries is based on NASCET criteria. ACT 112: Negative or not required by law. Electronically signed by: Morris Alonso M.D. 10/29/2023 6:03 PM ECG Additional Comments: Normal sinus rhythm Low voltage QRS Borderline ECG When compared with ECG of 06-AUG-2023 11:46, No significant change was found Code Status & VTE Plan Code Status Full code VTE Prophylaxis Plan VTE Prophylaxis will be ordered: Yes Supervising Physician Co-Signing Physician Notes I personally saw and examined the patient. I verified all wiseman points and agree with Matias Campos PA-C with the following exceptions and/or additions: 73 year old female presents to the ER with stroke-like symptoms with left sided facial droop and left extremity weakness. Not a TNK candidate due to therapeutic warfarin use. O/E A&Ox3, HS RRR, no murmurs, Chest CTAB, Abdo SNT, double vision, no facial droop currently present, pronator drift of LUE no LLE weakness, no sensory loss A/P Stroke-like symptoms - Brain MRI. Infection workup with UA (currently on antibiotics for UTI) and CXR. EEG given history of partial seizures. Consult neurology. PG Care Time/CCT Total # of Minutes Spent Total Time Spent with Patient: Total time spent is greater than 50% in coordination of care (as documented) at patient's floor/unit and/or counseling patient: Coding [place] [address] INT INP/OBS CARE 3/75MIN Patient Type Established Medical Decision Making High Complexity Diagnoses Stroke-like symptoms R29.90 UTI (urinary tract infection) N39.0 Benign essential hypertension I10 Diabetes mellitus, type II E11.9 Hypothyroidism E03.9 Bipolar disorder F31.9 Current use of [facility] anticoagulation Z79.01
[2023-10-29] MEDS ORDERED: PHARMACIST DISCHARGE MED REC CONSULT PRN (19:05)
[2023-10-29] MEDS: SODIUM CHLORIDE 0.9% 1,000 ML IV ONE (19:09)
[2023-10-29] MEDS ORDERED: LACTATED RINGER'S 1,000 ML IV SCH (20:15)
[2023-10-29] MEDS ORDERED: DEXTROSE 50% 50 ML SYRINGE IV PRN (20:21)
[2023-10-29] MEDS ORDERED: GLUCOSE 40% GEL 15 GM TUBE PO PRN (20:21)
[2023-10-29] MEDS ORDERED: GLUCOSE 10 TAB/TUBE PO PRN (20:21)
[2023-10-29] MEDS ORDERED: CARBOHYDRATES FOR HYPOGLYCEMIA PO PRN (20:21)
[2023-10-29] MEDS ORDERED: GLUCAGON FOR INJ 1 MG VIAL SQ PRN (20:21)
[2023-10-29] MEDS: cefTRIAXone SODIUM 2,000 MG/50 ML BAG IV STA (20:42)
[2023-10-29] MEDS ORDERED: ALBUTEROL HFA 8 GM INHALER INH PRN (21:05)
[2023-10-29 21:32] LABS: Appearance Urine Clear (Clear); Bilirubin Urine Negative (Negative); Blood Urine Negative (Negative); Color Urine Yellow; Glucose Urine UA 1+ (Negative); Ketones Urine Negative (Negative); Leukocyte Esterase Urine Negative (Negative); Nitrite Urine Negative (Negative); Protein Urine Negative (Negative); Specific Gravity Urine 1.024 (1.000-1.030); Urobilinogen Urine Negative (Negative)
[2023-10-29] MEDS: TOPIRAMATE 50 MG TAB PO SCH (21:34)
[2023-10-29] MEDS: PROPRANOLOL HCL 20 MG TAB PO SCH (21:34)
[2023-10-29] MEDS: GABAPENTIN 800 MG TAB PO SCH (21:34)
[2023-10-29] MEDS: lamoTRIgine 100 MG TAB PO SCH (21:34)
[2023-10-29] MEDS: ROSUVASTATIN CALCIUM 20 MG TAB PO SCH (21:34)
[2023-10-29] MEDS: PLASMA-LYTE A 1,000 ML IV SCH (21:51)
[2023-10-30] MEDS: INSULIN ASPART PER UNIT CHARGE SC SCH ×2 (00:07→13:06)
[2023-10-30 04:45] LABS: Basophils # (auto) 0.01 K/uL (0.00-0.20); Basophils % (auto) 0.3 %; Eosinophils # (auto) 0.14 K/uL (0.00-0.50); Eosinophils % (auto) 3.7 %; Hematocrit (blood only) 39.4 % (37.0-47.0); Hemoglobin 12.9 g/dl (12.0-16.0); Immature Granulocytes # (auto) 0.01 K/uL (0.01-0.20); Immature Granulocytes % (auto) 0.3 %; Lymphocytes # (auto) 1.64 K/uL (1.20-3.40); Mean Corpuscular Hemoglobin 31.4 pg (25.0-34.0); Mean Corpuscular Hgb Conc 32.7 g/dL (32.0-36.0); Mean Corpuscular Volume 95.9 fL (80.0-100.0); Monocytes # (auto) 0.43 K/uL (0.11-0.59); Monocytes % (auto) 11.3 %; Neutrophils # (auto) 1.58 K/uL (1.40-6.50); Neutrophils % (auto) 41.4 %; Platelet Count 191 K/uL (130-400); RDW Standard Deviation 45.4 fL (36.4-46.3); Red Blood Count 4.11 M/uL (4.20-5.40); White Blood Count 3.81 K/ul (4.8-10.8)
[2023-10-30 05:02] LABS: Albumin Globulin Ratio 1.5 (0.9-2); Albumin Level 3.5 gm/dl (3.4-5.0); BUN Creatinine Ratio 15.4 (10-20); Bilirubin,Total 0.3 mg/dl (0.2-1.0); Calcium 8.4 mg/dl (8.6-10.3); Chol HDL Ratio 2.2 (0-5); Creatinine Clr Calc Pharmacy 42.1 ml/min; Est GFR (African American) 45.3 ml/min; Est GFR (Non-African American) 39.1 ml/min; Globulin 2.4 gm/dl (2.5-4.0); Magnesium 2.2 mg/dl (1.7-2.4); Potassium 3.8 mmol/L (3.5-5.1); Total Protein 5.9 gm/dl (6.0-8.3)
[2023-10-30 05:14] LABS: INR 2.3 (0.9-1.1); Prothrombin Time 23.5 Seconds (9.0-12.0)
[2023-10-30] MEDS: LEVOTHYROXINE SODIUM 50 MCG TABLET PO SCH (05:33)
[2023-10-30 07:15] LABS: Estimated Average Glucose 134 mg/dl; Hemoglobin A1C 6.3 % (4.5-5.6)
--- NOTE | 2023-10-30 07:58 | XRay Report ---
XR chest 1V portable CLINICAL HISTORY: rule out infection TECHNIQUE: Single frontal radiograph of the chest was obtained. Comparison: Comparison is made to chest radiograph 08/06/2023 FINDINGS: No lines and tubes are seen. The cardiomediastinal silhouette is normal. The lungs are clear. No evid ence of pleural effusion or pneumothorax. IMPRESSION: No acute abnormalities and in particular no radiographic evidence of pneumonia. ACT 112: Negative or not required by law. Electronically signed by: Morris Alonso M.D. 10/30/2023 7:56 AM
--- NOTE | 2023-10-30 08:09 | Electroencephalogram ---
EEG Procedure Note Date of Service October 30, 2023 Start / End Times Start Time: 619 End Time: 0640 Referring Physician Matias Campos PA-C History 73-year-old with history of seizure-like activity Home Medication List Medication Instructions Recorded Confirmed Type bupropion HCl 150 mg 24 hr tablet, 150 mg PO QAM 03/06/18 10/29/23 History extended release (Wellbutrin XL) bupropion HCl 300 mg 24 hr tablet, 300 mg PO QAM 08/20/18 10/29/23 History extended release (Wellbutrin XL) propranolol 40 mg tablet 40 mg PO BID 06/25/19 10/29/23 History lamotrigine 150 mg tablet 150 mg PO HS 09/28/19 10/29/23 History (Lamictal) cholecalciferol (vitamin D3) 25 2,000 unit PO HS 05/09/20 10/29/23 History mcg (1,000 unit) capsule cranberry 400 mg capsule 400 mg PO QPM 06/08/21 10/29/23 History TRUEplus Lancets 33 gauge (lancets) #300 ea 06/27/21 10/29/23 Rx clozapine 50 mg tablet (Clozaril) 50 mg PO QPM 08/15/22 10/29/23 History albuterol sulfate 90 mcg/actuation 2 puff inhalation Q4H PRN 11/07/22 10/29/23 Rx aerosol inhaler shortness of breath #1 inhaler ipratropium bromide 42 mcg (0.06 2 spray intranasal BID #15 mL 02/19/23 10/29/23 Rx %) nasal spray lancets 33 gauge (TRUEplus Lancets) #300 ea 02/22/23 10/29/23 Rx blood sugar diagnostic (OneTouch #200 ea 06/06/23 10/29/23 Rx Verio test strips) blood-glucose meter (OneTouch #1 ea 06/06/23 10/29/23 Rx Verio Flex Meter) lancets 30 gauge (OneTouch Delica #200 ea 06/06/23 10/29/23 Rx Plus Lancet) warfarin 5 mg tablet See Rx Instructions PO UD 90 days 06/10/23 10/29/23 Rx #180 tabs gabapentin 800 mg tablet 800 mg PO TID #90 tabs 02/14/24 05/28/24 Rx levothyroxine 50 mcg tablet 50 mcg PO QAM 90 days #90 tabs 08/23/23 10/29/23 Rx naltrexone 50 mg tablet 100 mg PO QAM 08/23/23 10/29/23 History cyanocobalamin (vitamin B-12) 1,000 mcg PO QAM 10/02/23 10/29/23 History 1,000 mcg tablet (Vitamin B-12) donepezil 5 mg tablet (Aricept) 5 mg PO HS 10/02/23 10/29/23 History rosuvastatin 20 mg tablet (Crestor) 20 mg PO HS 10/02/23 10/29/23 History tirzepatide 5 mg/0.5 mL 5 mg subcut WK 10/02/23 10/29/23 History subcutaneous pen injector (Mounjaro) topiramate 50 mg tablet (Topamax) 50 mg PO HS 10/02/23 10/29/23 History calcitriol 0.25 mcg capsule 0.25 mcg PO 3XWK #36 caps 10/14/23 10/29/23 Rx (Rocaltrol) dapagliflozin propanediol 10 mg 10 mg PO QAM #90 tabs 10/15/23 10/29/23 Rx tablet (Farxiga) cephalexin 500 mg capsule 500 mg PO BID 7 days #14 caps 10/25/23 10/29/23 Rx Inpatient Medication List Gabapentin (Gabapentin 800 Mg Tab) 800 mg PO TID [facility] Stop: 11/28/23 21:04 Last Admin: 10/29/23 21:34 Dose: Not Given Documented By: [facility] Parenteral Electrolytes (Plasma-Lyte A Ph 7.4) 1,000 mls @ 80 mls/hr IV .[id number] [facility] Stop: 10/30/23 21:14 Last Admin: 10/29/23 21:51 Dose: 80 mls/hr Documented By: [facility] Insulin Aspart (Insulin Aspart Per Unit Charge) 0 units SC Q6 [facility] Stop: 11/29/23 00:00 Last Admin: 10/30/23 05:34 Dose: Not Given Documented By: [facility] Admin: 10/30/23 00:07 Dose: Not Given Documented By: [facility] Lamotrigine (Lamotrigine 100 Mg Tab) 150 mg PO HS [facility] Stop: 11/28/23 21:04 Last Admin: 10/29/23 21:34 Dose: Not Given Documented By: EM Levothyroxine Sodium (Levothyroxine Sodium 50 Mcg Tablet) 50 mcg PO DAILYBB [facility] Stop: 11/29/23 06:29 Last Admin: 10/30/23 05:33 Dose: Not Given Documented By: MAX Propranolol HCl (Propranolol Hcl 20 Mg Tab) 40 mg PO BID [facility] Stop: 11/28/23 21:04 Last Admin: 10/29/23 21:34 Dose: Not Given Documented By: EM Rosuvastatin Calcium (Rosuvastatin Calcium 20 Mg Tab) 20 mg PO HS [facility] Stop: 11/28/23 21:04 Last Admin: 10/29/23 21:34 Dose: Not Given Documented By: EM Topiramate (Topiramate 50 Mg Tab) 50 mg PO HS [facility] Stop: 11/28/23 21:04 Last Admin: 10/29/23 21:34 Dose: Not Given Documented By: EM Discontinued Medications Sodium Chloride (Nss) 1,000 mls @ 999 mls/hr IV .Q1H1M ONE Stop: 10/29/23 19:59 Last Infusion: 10/29/23 22:07 Dose: Infused Documented By: Admin: 10/29/23 19:09 Dose: 999 mls/hr Documented By: EM Ceftriaxone Sodium (Rocephin) 2,000 mg in 50 mls @ 100 mls/hr IV NOW STA Stop: 10/29/23 20:42 Last Infusion: 10/29/23 22:07 Dose: Infused Documented By: Admin: 10/29/23 20:42 Dose: 100 mls/hr Documented By: EM Ioversol (Optiray 320 125ml) 120 ml IV ONCE ONE Stop: 10/29/23 17:47 Last Admin: 10/29/23 17:48 Dose: 120 ml Documented By: ASPEN Description This is a 21 electrode EEG with a single channel dedicated to limited EKG. The electrodes were placed in accordance with the International 10-20 system. Interpretation The predominant background activity consists of a somewhat irregular 10 Hz activity, of up to 30 mV in amplitude, seen symmetrically distributed over the posterior head regions bilaterally. This activity attenuates some with eye- opening and other alerting procedures. Photic stimulation was performed and elicited no change in the background activity and no abnormal responses were seen. Hyperventilation was not performed. A mild amount of muscle (particularly bifrontal) and mild amount of movement (eye blink) artifact activity contaminated the recording, yet did not hinder interpretation to any significant degree. Throughout the waking portion of the recording, no focal abnormalities, abnormal slow activity, or potentially epileptogenic discharges were seen. The patient entered the drowsy state and brief periods of stage II sleep with no further activation. In summary, this EEG was normal during wakefulness and light sleep. No focal abnormalities, potentially epileptogenic discharges, or abnormal slow activity were seen. Clinical Correlation The abscence of potentially epileptogenic activity does not exclude a seizure disorder, since interictally, EEGs can be normal. Clinical correlation is required. [facility] EEG Procedure Codes Indication for Procedure (1) Seizure-like activity:
--- NOTE | 2023-10-30 08:10 | Electrocardiogram Report ---
Test Reason : Blood Pressure : / mmHG Vent. Rate : 069 BPM Atrial Rate : 069 BPM P-R Int : 166 ms QRS Dur : 094 ms QT Int : 408 ms P-R-T Axes : 016 -19 031 degrees QTc Int : 437 ms Poor data quality, interpretation may be adversely affected Normal sinus rhythm Low voltage QRS Poor R wave progression, consider anterior SD vs. lead placement vs. LVH Borderline When compared with ECG of 06-AUG-2023 11:46, No significant change was found Confirmed by Elier Mckeon ([id number]) on 10/30/2023 8:09:38 AM Referred By: REFERRED SELF Confirmed By:Eleir Mkceon
[2023-10-30] MEDS: buPROPion XL 150 MG TABCR PO SCH (08:48)
[2023-10-30] MEDS: buPROPion XL 300 MG TABCR PO SCH (08:48)
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
--- NOTE | 2023-10-30 12:56 | XCELERA ---
[id number]
[2023-10-30] MEDS: WARFARIN SOD 10 MG TAB PO SCH (18:08)
--- NOTE | 2023-10-30 18:20 | Magnetic Resonance Report ---
MRI OF THE BRAIN WITHOUT IV CONTRAST CLINICAL HISTORY: Neurological symptoms. COMPARISON STUDY: CT of the brain dated 10/29/2023. TECHNIQUE: MRI of the brain was performed utilizing various T1 and T2-weighted sequences in the axial , sagittal, and coronal planes. IV contrast was not administered for this examination. FINDINGS: Brain parenchyma: There is age related involutional change noting minimal microangiopathic disease. T here is no hemorrhage or mass effect. There is no restricted diffusion to suggest acute ischemia. Gra y-white matter differentiation is preserved. No extra-axial fluid collection is seen. The cerebellar tonsils are normal in configuration. Ventricles, sulci, and cisterns: Prominent secondary to involutional change. Pituitary and sella: Unremarkable. Intracranial vasculature: Normal flow voids are maintained at the skull base. Orbits: The bony orbits are grossly intact. Orbital contents are normal in appearance noting bilatera l ocular lens implants. Sinuses and mastoids: Clear. Calvarium: Unremarkable. Cervical cord: Partially visualized cervical spinal cord is normal in morphology and signal intensity . IMPRESSION: No acute intracranial abnormality. ACT 112: Negative or not required by law. Electronically signed by: Jhony Oritz M.D. 10/30/2023 6:19 PM
[2023-10-30] MEDS: cefTRIAXone SODIUM 2,000 MG/50 ML BAG IV SCH (21:30)
[2023-10-30] MEDS: cloZAPine 25 MG TAB PO SCH (21:36)
[2023-10-30] MEDS: DONEPEZIL HCL 5 MG TAB PO SCH (21:37)
[2023-10-30] MEDS: ACETAMINOPHEN 1,000 MG/100 ML VIAL IV PRN (21:43)
--- NOTE | 2023-10-30 22:07 | Hospitalist Progress Note ---
Date of Service October 30, 2023 Assessment & Plan (1) Stroke-like symptoms: Plan: -Admit to the PCU on tele -Currently stable but still with persistent symptoms for which she presented with -Her differential is broad at this time including CVA, partial seizure, infectio n, complex migraine, anxiety -Low suspicion for Phillips's palsy at this time as the patient is able to wrinkle her forehead and raise her eyebrows -CT of the head/brain and CTA of the head/neck were read as negative for acute findings -Will consult Neurology for assistance with further workup/treatment: awaiting MRI brain, urology states bladder stimulator is safe. -Will allow permissive HTN overnight, q4h neuro checks -Patient failed her dysphagia screen, will keep NPO until she is evaluated by Speech tomorrow -Fall/aspiration precautions -Will obtain CXR/UA for further evaluation of infection -Home Warfarin for DVT PPX -AM CBC, CMP, mag, PT/INR, A1c, Fasting Lipid Panel (2) UTI (urinary tract infection): Plan: -Patient was diagnosed with a UTI by her PCP on 10/24, unfortunately a culture was never obtained -Has been taking BID Keflex and feels as though her UTI symptoms have been improving -Will switch her to Ceftriaxone while NPO -Follow repeat UA, if no concerning findings could plan to continue her original Keflex course when able to take PO intake (3) Benign essential hypertension: Plan: -Stable -Will allow permissive HTN until MRI of the brain is obtained (4) Diabetes mellitus, type II: Plan: -Monitor BSG q6h while npo, goal is 110-160 -Hold Dapagliflozin -Start CF 50 and CR 15 q6h for now -Adjust regimen as needed (5) Hypothyroidism: Plan: -Continue levothyroxine when able (6) Bipolar disorder: Plan: -Continue Clozapine, Wellbutrin, Lamictal when able (7) Current use of chcf anticoagulation: Plan: -Patient is on Warfarin for a hx of PE -INR goal per anticoagulation clinic is 2-3 -INR 2.3 today -Will hold HS dose tonight while NPO, monitor daily INR -If not able to take PO meds tomorrow and INR is subtherapeutic, will need to start heparin drip or therapeutic Lovenox Admission and Anticipated Discharge Date Admission Date: October 29, 2023 Subjective Patient reports no new symptoms. Physical Exam Physical Exam: General: In no acute distress HEENT: Patient noted to have mild left facial droop Chest/Pulm: clear breath sounds throughout Cardiac: RRR, no murmurs noted Abdomen: Negative for ascites and bruising, normoactive bowel sounds, soft, non-tender to palpation throughout Musculoskeletal: Symmetrical and without signs of acute trauma, upper and lower extremities, left upper and lower extremity with slight weakness compared to right Extremities: Radial, dorsalis pedis, and posterior tibial pulses are intact and symmetrical, no edema noted in the BL LE's Skin: Warm, dry, no rashes , lesions, or scars noted Neuro: Alert and oriented to person, place, month, year, and president, mild left facial droop, CN II-XII tested noted to have BL double vision with EOM t esting, otherwise CN are intact, patient with positive pronator drift and cerebellar testing in the E, E WNL, no tremors noted Psych: No acute distress, calm and cooperative during the exam Results & Data Results & Data Vital Signs (Past 12 Hours) Vital Signs Temp Pulse Pulse Resp BP BP Pulse Ox 10/30/23 19:51 36.6 C 66 18 146/76 H 95 10/30/23 14:40 36.6 C 67 19 148/74 H 95 10/30/23 14:07 36.9 C 71 20 140/74 93 10/30/23 14:06 36.9 C 69 20 140/74 93 10/30/23 11:19 36.7 C 71 20 138/86 98 O2 Del Method 10/30/23 19:51 Room Air 10/30/23 14:40 Room Air 10/30/23 14:07 Room Air 10/30/23 14:06 Room Air 10/30/23 11:19 Room Air PG Care Time/CCT Total # of Minutes Spent Total Time Spent with Patient: Total time spent is greater than 50% in coordination of care (as documented) at patient's floor/unit and/or counseling patient: Coding Level of Care Code 98584 SUB INP/OBS CARE 2/35MIN Diagnoses Stroke-like symptoms R29.90 UTI (urinary tract infection) N39.0 Benign essential hypertension I10 Diabetes mellitus, type II E11.9 Hypothyroidism E03.9 Bipolar disorder F31.9 Current use of extermination supervisor anticoagulation Z79.01
[2023-10-31 07:40] LABS: Basophils # (auto) 0.01 K/uL (0.00-0.20); Basophils % (auto) 0.3 %; Eosinophils # (auto) 0.14 K/uL (0.00-0.50); Eosinophils % (auto) 4.2 %; Hematocrit (blood only) 39.6 % (37.0-47.0); Hemoglobin 12.7 g/dl (12.0-16.0); Lymphocytes # (auto) 1.19 K/uL (1.20-3.40); Lymphocytes % (auto) 35.3 %; Mean Corpuscular Hgb Conc 32.1 g/dL (32.0-36.0); Mean Corpuscular Volume 96.6 fL (80.0-100.0); Mean Platelet Volume 8.9 fL (9.4-12.4); Monocytes # (auto) 0.34 K/uL (0.11-0.59); Monocytes % (auto) 10.1 %; Neutrophils # (auto) 1.69 K/uL (1.40-6.50); Neutrophils % (auto) 50.1 %; Platelet Count 189 K/uL (130-400); RDW Standard Deviation 46.3 fL (36.4-46.3); White Blood Count 3.37 K/ul (4.8-10.8)
[2023-10-31 07:58] LABS: Albumin Globulin Ratio 1.3 (0.9-2); Albumin Level 3.4 gm/dl (3.4-5.0); BUN Creatinine Ratio 16.3 (10-20); Bilirubin,Total 0.3 mg/dl (0.2-1.0); Calcium 8.4 mg/dl (8.6-10.3); Creatinine Clr Calc Pharmacy 41.5 ml/min; Est GFR (African American) 45.7 ml/min; Est GFR (Non-African American) 39.4 ml/min; Globulin 2.6 gm/dl (2.5-4.0); Magnesium 2.4 mg/dl (1.7-2.4)
[2023-10-31 08:00] LABS: INR 1.7 (0.9-1.1); Prothrombin Time 17.2 Seconds (9.0-12.0)
--- NOTE | 2023-10-31 11:18 | Fluoroscopy Report ---
FL video swallow HISTORY: assess for aspiration TECHNIQUE: Video fluoroscopic evaluation of swallowing was performed in the AP and lateral projection s by the speech pathology staff. The patient is fed nectar-thick and thin liquid barium, a barium coa bhargavi wafer, and barium pudding. FLUOROSCOPY TIME: 1 minute and 4 seconds. Ka,r: 6.6 mGy COMPARISON STUDY: None. FINDINGS: There is normal hyoid excursion and epiglottic deflection. There are a few episodes of pene tration with the thin liquid and nectar thick liquid barium. No aspiration identified during the exam ination. IMPRESSION: 1. No aspiration identified. 2. Please see the speech pathologist report for detailed findings and recommendations. ACT 112: Negative or not required by law. Electronically signed by: Lisandro Parrish M.D. 10/31/2023 11:17 AM
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
--- NOTE | 2023-10-31 13:18 | Discharge Summary ---
Date of Service October 31, 2023 Admission HPI Per Admitting Provider Uday Robles is a 73 year old female with a PMH significant for DMII, HTN, previous PE (on Warfarin), hypothyroidism, stage 3 CKD, bipolar disorder, idiopathic seizure, tardive dyskinesia, neurogenic bladder S/P bladder stimulator placement, memory loss who presented to the [facility] ED via EMS on 10/29/23 as a stroke alert after she developed acute onset of left sided facial numbness, left sided paresthesias, increased ambulatory dysfunction, and word finding difficulty around 1430 this afternoon. On arrival to the ED the patient was noted to bed hypertensive at 166/67 but was otherwise stable. Labs including CBC, CMP, high sen trop, and INR were unremarkable. CT of the head/brain wo con and CTA of the head/neck were read as negative for acute findings. The patient was given no medications prior to admission. At the time of the exam the patient was sitting in bed in no acute distress, family had gone home prior to my exam. Patient states that she noticed left facial numbness, left upper/lower extremity paresthesias/weakness, blurry vision in the BL eyes, and the sensation the her left eye was being pulled to the left. These symptoms started around 1330, while she was driving to the anticoagulation clinic. She noticed that she was driving more erratic than normal. She was having increased ambulatory dysfunction with the onset of her other symptoms and has been experiencing a left-sided headache. When asked about her seizure history, she states that she was diagnosed with complex, partial seizures in the . He symptoms would usually be starring off and being less responsive. She had all of her am medications today and has been taking her BID Keflex as prescribed. She denies recent fever, chills, chest pain, cough, SOB, hemoptysis, abd pain, nausea, vomiting, diarrhea, dysuria, hematuria, melena, LE swelling, and recent trauma. She is a full code, and her daughter, Lin, would make decisions for her if she cannot make them herself. The patient was recently diagnosed with a UTI and started on a 7 day course of Keflex on 10/25/23. Per review of her last Neurology clinic note from 09/13/23, she was diagnosed with a concussion in August of 2023 and had been experiencing ongoing headaches which were mainly on the left side of her head. Of note, the patient was supposed to have an MRI of the brain on 10/02/23 for her ongoing headaches. She is able to have MRI's with her bladder stimulator, however, it needs to be set in a certain mode prior. She states that she brought paperwork with instructions to change the mode on 10/01 but they were unable to do so. She has the contact information for the stimulator company in her Phone, but her phone is with her daughter so she will need to call her daughter to get the number. Principal Diagnosis stroke like symptoms. Discharge Exam General: In no acute distress HEENT: Patient noted to have mild left facial droop Chest/Pulm: clear breath sounds throughout Cardiac: RRR, no murmurs noted Abdomen: Negative for ascites and bruising, normoactive bowel sounds, soft, non-tender to palpation throughout Extremities: Radial, dorsalis pedis Discharge Data Allergies Allergy/AdvReac Type Severity Reaction Status Date / Time amoxicillin [From Augmentin] Allergy Severe Rash Verified 10/25/23 15:50 clavulanic acid Allergy Severe Rash Verified 10/25/23 15:50 [From Augmentin] metoclopramide Allergy Severe facial Verified 10/25/23 15:50 swelling and blisters doxycycline Allergy Intermediate ? Verified 10/25/23 15:50 tetracycline, doxy caused itching (rechallenge 02/2017) fluticasone Allergy Intermediate BURNED Verified 10/25/23 15:50 NASAL PASSAGES Penicillins Allergy Intermediate Rash, hand Verified 10/25/23 15:50 swelling/redness tetracycline Allergy Intermediate ?--long Verified 10/25/23 15:50 time ago, doxy caused itching (rechallenge 02/2017) tolterodine Allergy Intermediate HIVES Verified 10/25/23 15:50 triamcinolone [From Kenalog] Allergy Intermediate Rash Verified 10/25/23 15:50 Tetracyclines Allergy Unknown Unknown Verified 10/25/23 15:50 Consultations 10/29/23 18:25 ED Decision to Admit Stat 10/29/23 21:05 Consult Neurology Routine MRI OF THE BRAIN WITHOUT IV CONTRAST CLINICAL HISTORY: Neurological symptoms. COMPARISON STUDY: CT of the brain dated 10/29/2023. TECHNIQUE: MRI of the brain was performed utilizing various T1 and T2-weighted sequences in the axial, sagittal, and coronal planes. IV contrast was not administered for this examination. FINDINGS: Brain parenchyma: There is age related involutional change noting minimal microangiopathic disease. There is no hemorrhage or mass effect. There is no restricted diffusion to suggest acute ischemia. Huizar-white matter differentiation is preserved. No extra-axial fluid collection is seen. The cerebellar tonsils are normal in configuration. Ventricles, sulci, and cisterns: Prominent secondary to involutional change. Pituitary and sella: Unremarkable. Intracranial vasculature: Normal flow voids are maintained at the skull base. Orbits: The bony orbits are grossly intact. Orbital contents are normal in appearance noting bilateral ocular lens implants. Sinuses and mastoids: Clear. Calvarium: Unremarkable. Cervical cord: Partially visualized cervical spinal cord is normal in morphology and signal intensity. IMPRESSION: No acute intracranial abnormality. Ordered Studies 10/29/23 17:33 CT angio head w con Stat CT angio neck with con Stat CT head/brain wo con Stat 10/30/23 14:19 MR brain wo con Urgent 10/31/23 10:30 FL video swallow Routine Hospital Course (1) Stroke-like symptoms: -Admit to the PCU on tele -Currently stable but still with persistent symptoms Her symptoms split the midline making a true stroke less likely. Patient has a bladder stimulator, which is MRI safe. There was concern by Radiology that is was not safe and the MRI with and without contrast was not completed however the diffusion images were completed and no stroke seen. This was also reviewed by Neurologist premium cancellation clerk Dr. Christianson. -Low suspicion for Phillips's palsy at this time as the patient is able to wrinkle her forehead and raise her eyebrows -CT of the head/brain and CTA of the head/neck were read as negative for acute findings Patient symptoms improved over course of next 24 hours. Nuerology believes this may be a psych origin. will have her be re-evaluated by Dr. Martinez in the outpatient setting. Continue medications noted below. (2) UTI (urinary tract infection): -Patient was diagnosed with a UTI by her PCP on 10/24, unfortunately a culture was never obtained -Has been taking BID Keflex and feels as though her UTI symptoms have been improving -Will switch her to Ceftriaxone -will continue antibiotics at home. (3) Benign essential hypertension: -Stable (4) Diabetes mellitus, type II: resume home meds (5) Hypothyroidism: -Continue levothyroxine when able (6) Bipolar disorder: -Continue Clozapine, Wellbutrin, Lamictal when able (7) Current use of half-way anticoagulation: -Patient is on Warfarin for a hx of PE -INR goal per anticoagulation clinic is 2-3 -INR 2.3 today Total Time Total Time Spent Total Time Spent (In Minutes): 32 Discharge Plan Discharge Items Patient Disposition: Home - Self-Care Reason For Visit: STROKE ALERT, PARESTHESIAS Discharge Diagnosis: paresthesias Activity: Resume your previous activity Non-emergency contact: Primary Care Provider Call non-emergency contact if: you have any medication questions Follow-up/Referrals: Darcy Jasso DO [Primary Care Provider] - Diet: Carb Consistent or DM2 Addtl Attending Provider Instructions: Recommendations by Dr. Christianson: 1. Continue donepezil 5 mg daily for your memory. 2. Continue propranolol 40 mg twice daily for tremor. 3. Continue gabapentin 80 mg 3 times a day for her neuralgic pain. 4. Continue bupropion, lamotrigine, Clozaril, naltrexone, and topiramate at current doses. 5. Follow-up with Dr. Martinez as an outpatient. Also followup with PCP in 1-2 weeks. 6. resume antibiotics tonight. Pending Studies at Discharge: No Stand-Alone Forms: My [facility] [employer], Smoking Cessation Medications and DC Order Prescriptions: Continued bupropion HCl [Wellbutrin XL] 150 mg tablet extended release 24 hr 150 mg PO QAM Rx Instructions: TOTAL DOSE 450 MG--TAKES WITH 300 MG TAB. cholecalciferol (vitamin D3) 25 mcg (1,000 unit) capsule 2,000 unit PO HS lamotrigine [Lamictal] 150 mg tablet 150 mg PO HS propranolol 40 mg tablet 40 mg PO BID (DME) lancets [TRUEplus Lancets] 33 gauge misc See Rx Instructions .Route Qty: 300 3RF Rx Instructions: test 3 times daily (DME) lancets [TRUEplus Lancets] 33 gauge misc See Rx Instructions .Route Qty: 300 2RF Rx Instructions: use to test blood sugar TID warfarin 5 mg tablet See Rx Instructions PO UD 90 Days Qty: 180 1RF Rx Instructions: 7.5mg every Saturday, , Saturday and 10mg the other 4 days per [facility] orally use as directed; gabapentin 800 mg tablet 800 mg PO TID Qty: 90 2RF levothyroxine 50 mcg tablet 50 mcg PO QAM 90 Days Qty: 90 1RF cranberry 400 mg capsule 400 mg PO QPM Rx Instructions: administer with a meal albuterol sulfate 90 mcg/actuation HFA aerosol inhaler 2 puff inhalation Q4H PRN (Reason: shortness of breath) Qty: 1 3RF naltrexone 50 mg tablet 100 mg PO QAM clozapine [Clozaril] 50 mg tablet 50 mg PO QPM ipratropium bromide 42 mcg (0.06 %) spray,non-aerosol 2 spray intranasal BID Qty: 15 11RF Rx Instructions: administer into each nostril calcitriol [Rocaltrol] 0.25 mcg capsule 0.25 mcg PO 3XWK Qty: 36 3RF Rx Instructions: 0.25 mcg PO TAKES every Saturday, Saturday, and Saturday; dapagliflozin propanediol [Farxiga] 10 mg tablet 10 mg PO QAM Qty: 90 3RF (DME) OneTouch Verio test strips Strip See Rx Instructions miscellaneous .MEDSUPPLY Qty: 200 3RF Rx Instructions: Check 2x a day (DME) blood-glucose meter [OneTouch Verio Flex meter] Misc See Rx Instructions .ROUTE .MEDSUPPLY Qty: 1 0RF Rx Instructions: As directed (DME) lancets [OneTouch Delica Plus Lancet] 30 gauge misc See Rx Instructions miscellaneous .MEDSUPPLY Qty: 200 3RF Rx Instructions: Check 2x a day with new lancet cephalexin 500 mg capsule 500 mg PO BID 7 Days Qty: 14 0RF bupropion HCl [Wellbutrin XL] 300 mg tablet extended release 24 hr 300 mg PO QAM Rx Instructions: TOTAL DOSE 450 MG--TAKES WITH 150 MG TAB. cyanocobalamin (vitamin B-12) [Vitamin B-12] 1,000 mcg Tablet 1,000 mcg PO QAM Mounjaro 5 mg/0.5 mL Pen Injector 5 mg SUBCUT WK donepezil [Aricept] 5 mg tablet 5 mg PO HS rosuvastatin [Crestor] 20 mg tablet 20 mg PO HS Rx Instructions: 20 mg orally Daily in PM; topiramate [Topamax] 50 mg tablet 50 mg PO HS Discharge Orders: Discharge Order (Routine); Ordered 10/31/23 Ordered By: Dillan Aguilar/Other Patient Handouts: Managing Type 2 Diabetes Admission Data Admit Date/Time: 10/29/23 19:04 Attending Provider: Dillan Connelly Admit Provider: Jon Lund Primary Care Provider: Darcy Jasso Other Providers: Ray Christianson Other Interventions: Discharge Summary Assessment (RN) Last Done: 10/31/23 13:50 Coding Level of Care Code 00484 INP/OBS DISCH >30 MIN Diagnoses Stroke-like symptoms R29.90 UTI (urinary tract infection) N39.0 Benign essential hypertension I10 Diabetes mellitus, type II E11.9 Hypothyroidism E03.9 Bipolar disorder F31.9 Current use of rodent exterminator anticoagulation Z79.01
[2023-10-31] MEDS ORDERED: WARFARIN SOD 7.5 MG TAB PO SCH (16:00)
--- NOTE | 2023-11-06 09:46 | Coding Query ---
CODING QUERY To promote full compliance with coding requirements relating to patient care, provider participation is requested in all cases of medical claims processor uncertainty. Please assist us with the question(s) below: Coding Question(s): In your clinical opinion, are the patient's stroke-like symptoms -- Possibly due to a TIA () Due to an unknown cause (x) Others, please specify () Per the Neurology Progress Note from 10/31/23 Patient had the acute onset of left-sided symptoms including dysesthesias/numbness and tingling as well as weakness. The symptoms which started early afternoon October 28 are persistent and unchanged currently. The etiology of the symptoms is not apparent currently, but she did not have a stroke. Although I cannot entirely exclude a TIA, her presentation was more "functional" than pathologic, Physician's Response(s): Thank you Shira Monroe Principal Diagnosis: "that condition established after study, to be chiefly responsible for occasioning the admission of the patient to the hospital for care." Co-Existing Principal Diagnosis: "when two or more diagnoses equally meet the criteria for principal diagnosis as determined by the circumstances of admission, diagnostic work up, and/or therapy provided, and the Alphabetic Index, Tabular List, or another coding guideline does not provide sequencing direction, any one of the diagnoses may be sequenced first." "When the physician has documented what appears to be a current diagnosis in the body of the record, but has not included the diagnosis in the final diagnostic statement, the physician should be asked whether the diagnosis should be added." (Source Coding Clinic 2 QTR90. p3-4) VICTOR HUGO
== END 2023-10-31 14:13 | disposition home or self-care (01) | DRG 92 ==
LOC: ED 17:07 → INTOOBSV 19:04 → SUATTDRO 19:04 → EDINP 19:04 → 2S 10-30 14:07

== ENCOUNTER 2024-12-15 18:58 | Observation (INO) ==
--- NOTE | 2024-12-15 19:05 | Emergency Department Note ---
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 The patient is on warfarin and has not missed any doses. Per my discussion with EMS crew on medical command a stroke alert was activated. Patient was taken directly to CT for stroke imaging. On my assessment the patient is no distress, afebrile with blood pressure 150s/80s and vital signs otherwise stable. She appears clinically dry. She exhibits baseline right-sided facial weakness. She has 3/5 strength of the right upper and right lower extremity. EKG without overt acute ischemia. CXR negative for acute cardiopulmonary process per my personal preliminary review/interpretation. WBC 5K with mild neutrophilia or left shift. H/H and platelets within the limits. INR is therapeutic at 2.6. Chemistry without metabolic acidosis. Creatinine 1.46, similar to prior range values in the setting of CKD. Initial glucose 65 with 1 amp of D50 administered. LFTs unremarkable. High-sensitivity troponin 3.0, within normal limits. UA without convincing evidence of infection. CT of the head and CTA of the head and neck were performed and were negative for acute abnormalities. Description of possible chronic [employer] TE[employer] findings/vasospasm is noted. Appreciate [facility] [place]. Patient is not a TNK candidate due to therapeutic warfarin. No large vessel occlusion at this time. Recommendations for admission and further stroke evaluation and management. Case was discussed with Dr. Lees, [facility] hospitalist, who will evaluate the patient for admission. Further management per admitting team. Triage Nursing notes reviewed and agree them. Prior/external medical records reviewed Vital Signs: reviewed Differential diagnosis: Infection, dehydration, metabolic abnormality, hypo/hyperglycemia, electrolyte disturbance, anemia, hypoxia, cardiac sources, intracerebral event, toxicologic, neurologic, as well as other pathologies. ER treatment provided: See below. Diagnostics interpreted by me: ECG: Normal sinus rhythm, 74 bpm, no ectopy, no overt ST ovation or depression, QTc 475, QRS 102 Cardiac Monitoring: An order for continuous cardiac monitoring was placed and demonstrated Laboratory studies: See below Imaging studies: See below Consultation(s): Dr. Dowling, [facility] [place]. Dr. Lees, [facility] hospitalist. HPI: Per MDM. ROS: See above HPI for pertinent positives & negatives. A total of 10 systems reviewed and were otherwise negative. VITALS:See Below PHYSICAL EXAMINATION: GENERAL: Awake, alert, chronically ill/fatigued-appearing, in no distress HENT: Normocephalic, atraumatic. Oropharynx with dry mucous membranes and otherwise unremarkable. EYES: Normal conjunctiva. Sclera non-icteric. EOMI. No nystamgus. PEARRL. NECK: Supple. No nuchal rigidity. FROM. No JVD. RESPIRATORY: Clear to auscultation. CARDIAC: Regular rate, normal rhythm. Extremities warm and well perfused. Pulses equal. ABDOMEN: Soft, non-distended. No tenderness to palpation. No rebound or guarding. No masses. MUSCULOSKELETAL: Chest examination reveals no tenderness. The back is symmetrical on inspection without obvious abnormality. There is no CVA tenderness to palpation. No joint edema. LOWER EXTREMITIES: Calves are equal size bilaterally and non-tender. No edema. No discoloration. NEURO: Chronic right facial nerve/Phillips's palsy. 3/5 strength of right upper and right lower extremity. No aphasia. SKIN: No rash or jaundice noted. Burak Hoang MD Past Med/Surg History Problem List (Updated 12/16/24 @ 18:29 by Burak Hoang MD) On warfarin therapy (Acute) Acute right-sided weakness (Acute) Stroke-like symptoms (Acute) Adverse drug effect Right sided weakness Cervical radiculopathy Headache Cerebral vasospasm (Acute) Sensorineural hearing loss (SNHL) of both ears VBI (vertebrobasilar insufficiency) Urinary incontinence Diabetic peripheral neuropathy Mild cognitive impairment Trochanteric bursitis of right hip Left knee DJD Other abnormalities of gait and mobility Muscle weakness Idiopathic peripheral neuropathy Focal epilepsy with impairment of consciousness reports no seizure activity since 2019 > follows with Dr. Martinez Leukopenia (Acute) Thickened nails Diabetic foot Right knee DJD Degenerative joint disease of right hip Benign essential hypertension Tardive dyskinesia History of colon polyps CKD stage 3 due to type 2 diabetes mellitus Morbid obesity Metabolic syndrome Multiple drug allergies Calculus of kidney Tremor Dysphagia Sensorineural hearing loss (SNHL) of left ear with restricted hearing of right ear Secondary hyperparathyroidism pt unaware H/O idiopathic seizure Diabetic peripheral neuropathy associated with type 2 diabetes mellitus Dyslipidemia Post laminectomy syndrome (Acute) Anxiety and depression Phillips's palsy (Acute) hx of Diabetes mellitus, type II (Chronic) Non-proliferative diabetic retinopathy Sacral neurostimulator in situ Chronic back pain Neuropathy bilateral feet and bilateral fingertips. Current use of detention anticoagulation (Chronic) Obesity (Acute) Hypothyroidism (Acute) Bipolar disorder (Acute) Memory loss "mild" Fibromyalgia Tinnitus, bilateral severe (worse in the left than right) Balance problem uses a cane Medical History History of urinary incontinence reason for the sacral neuromodulator Hearing loss left ear Hx of recurrent urinary tract infection no recent issues 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 Tardive dyskinesia Post laminectomy syndrome Hypertension Falls frequently last fall August 2023 - pt to have an MRI of head since last fall she has been having headaches. follows with Dr Martinez. H/O idiopathic seizure pt unaware Tremor benign bilateral hands Gait disturbance Osteoporosis History of kidney stones Depression Anxiety CKD stage 3 due to type 2 diabetes mellitus follows with Dr. Gracia Hyperlipidemia Difficulty swallowing Diabetes mellitus, type 2 NIDDM Pulmonary embolism on right (05/29/13) ~2012, reason for Warfarin. unknown cause. Surgical History S/P placement of nerve stimulator 06/2023 sacral neuromodulator History of cataract surgery bilateral Hx of surgical procedure bone stimulator > lumbar > 2006 - no longer active sacral neuromodulator trial 06/10/23, first and second stages completed 06/2023 with lead revision in August 2023 History of lumbar surgery x2 fusion unsure of level History of dilatation and curettage History of lithotripsy History of esophagogastroduodenoscopy (EGD) History of colonoscopy with polypectomy History of cholecystectomy Hx of right inguinal hernia repair History of tooth extraction History of tonsillectomy Hx of cervical spine surgery Laminectomy (no hardware) but states ROM limited all directions History of cardiac cath [facility] > 1989's > no stents History of left mastoidectomy Family History Father , of an NV at uncertain age. Myocardial infarction Mother , age 85 of pulmonary issues. Lung disease Other FHx: heart disease Family history of diabetes mellitus No family history of adverse response to anesthesia Denies family history of Ovarian cancer Prostate cancer Breast cancer Colorectal cancer Social History Smoking Status: Never smoker Tobacco Type: Cigarettes Age Started Using Tobacco: 15; Age Quit Using Tobacco: 27; packs per day: 0.50; Second Hand Exposure: No; Do You Dip or Chew Tobacco: No; Hx Alcohol Use: No Hx Substance Use: No Preferred Language: French Communication Ability: Effective Visual Impairment: No Limitations Hearing Ability: Hard of Hearing Bobbin Presser Required: No Beliefs That Will Affect Care: None marital status: Current Living Situation: Family Current Living Situation Comment: lives with Lin cool current occupational status: retired 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 Verified 12/09/24 10:43 tetracycline, doxy caused itching (rechallenge 02/2017) fluticasone Allergy Intermediate BURNED Verified 12/09/24 10:43 NASAL PASSAGES Penicillins Allergy Intermediate Rash, hand Verified 12/09/24 10:43 swelling/redness tetracycline Allergy Intermediate ?--long Verified 12/09/24 10:43 time ago, doxy caused itching (rechallenge 02/2017) tolterodine Allergy Intermediate HIVES Verified 12/09/24 10:43 triamcinolone [From Kenalog] Allergy Intermediate Rash Verified 12/09/24 10:43 Tetracyclines Allergy Unknown Unknown Verified 12/09/24 10:43 Home Meds Home Medications Medication Instructions Recorded Confirmed bupropion HCl 150 mg 24 hr tablet, 150 mg PO QAM 03/06/18 12/15/24 extended release (Wellbutrin XL) bupropion HCl 300 mg 24 hr tablet, 300 mg PO QAM 08/20/18 12/15/24 extended release (Wellbutrin XL) propranolol 40 mg tablet 40 mg PO BID 06/25/19 12/15/24 lamotrigine 150 mg tablet 150 mg PO HS 09/28/19 12/15/24 (Lamictal) cholecalciferol (vitamin D3) 25 2,000 unit PO HS 05/09/20 12/15/24 mcg (1,000 unit) capsule naltrexone 50 mg tablet 100 mg PO QAM 08/23/23 12/15/24 cyanocobalamin (vitamin B-12) 1,000 mcg PO QAM 10/02/23 12/15/24 1,000 mcg tablet (Vitamin B-12) escitalopram oxalate 20 mg tablet 20 mg PO QAM 05/28/24 12/15/24 warfarin 5 mg tablet See Rx Instructions PO UD 09/22/24 12/15/24 mupirocin 2 % topical ointment See Rx Instructions .Route 10/15/24 12/15/24 .COMPLEX PRN as directed clozapine 50 mg tablet 50 mg PO HS 11/16/24 12/15/24 gabapentin 800 mg tablet 800 mg PO TID 12/09/24 12/15/24 ipratropium bromide 42 mcg (0.06 2 spray intranasal BID 12/09/24 12/15/24 %) nasal spray calcitriol 0.25 mcg capsule 0.25 mcg PO 3XWK 12/15/24 12/15/24 cranberry fruit 400 mg tablet 400 mg PO QPM 12/15/24 12/15/24 Previous Rx's Medication Instructions Recorded TRUEplus Lancets 33 gauge (lancets) #300 ea 06/27/21 lancets 33 gauge (TRUEplus Lancets) #300 ea 02/22/23 blood-glucose meter (OneTouch #1 ea 06/06/23 Verio Flex Meter) lancets 30 gauge (OneTouch Delica #200 ea 06/06/23 Plus Lancet) cetirizine 10 mg tablet 10 mg PO DAILY #30 tabs 01/01/24 dapagliflozin propanediol 10 mg 10 mg PO QAM #90 tabs 04/21/24 tablet (Farxiga) blood sugar diagnostic (OneTouch #200 ea 06/29/24 Verio test strips) levothyroxine 50 mcg tablet 50 mcg PO QAM 90 days #90 tabs 08/24/24 albuterol sulfate 90 mcg/actuation 2 puff inhalation Q4H PRN 09/01/24 aerosol inhaler shortness of breath #1 inhaler donepezil 5 mg tablet 5 mg PO HS #30 tabs 10/15/24 verapamil 40 mg tablet 40 mg PO QPM #30 tabs 11/09/24 tirzepatide 7.5 mg/0.5 mL 7.5 mg (0.5 mL) subcut Q7D #2 mL 11/12/24 subcutaneous pen injector topiramate 50 mg tablet (Topamax) 50 mg PO BID #180 tabs 11/12/24 rosuvastatin 20 mg tablet 20 mg PO HS #90 tabs 12/03/24 walker #1 ea 12/16/24 Results & Data (ED) Vital Signs Vital Signs - 24 hr 12/15/24 19:06 12/15/24 19:06 12/15/24 19:06 Temperature 36.6 C 36.8 C Temperature Source Oral Oral Pulse Rate 76 Pulse Rate [Apical] 75 Pulse Rate from SpO2 Sensor Pulse Rhythm Regular Pulse Rhythm [Apical] Regular Pulse Strength Normal Pulse Strength [Apical] Normal Respiratory Rate 18 18 Respiratory Effort / Characteristics Non-Labored Spontaneous Non-Labored Spontaneous Respiratory Depth Normal Normal Respiratory Pattern Regular Blood Pressure 154/86 H Blood Pressure [Left Arm] 154/86 H Blood Pressure Mean 108 Blood Pressure Mean [Left Arm] 108 Pulse Oximetry 93 95 93 Oxygen Delivery Method Room Air Room Air Room Air Sepsis Recent Fever Within 48 Hours No Sepsis New/Unexplained Change in Mental Status No Sepsis Action Taken by Nursing No Action Required 12/15/24 19:22 12/15/24 19:26 12/15/24 19:30 Temperature Temperature Source Pulse Rate 78 78 78 Pulse Rate [Apical] Pulse Rate from SpO2 Sensor Pulse Rhythm Pulse Rhythm [Apical] Pulse Strength Pulse Strength [Apical] Respiratory Rate 17 22 Respiratory Effort / Characteristics Respiratory Depth Respiratory Pattern Blood Pressure 97/75 L 157/66 H Blood Pressure [Left Arm] Blood Pressure Mean 80 96 Blood Pressure Mean [Left Arm] Pulse Oximetry 96 98 Oxygen Delivery Method Sepsis Recent Fever Within 48 Hours Sepsis New/Unexplained Change in Mental Status Sepsis Action Taken by Nursing 12/15/24 20:03 12/15/24 20:06 12/15/24 20:15 Temperature Temperature Source Pulse Rate 77 76 Pulse Rate [Apical] Pulse Rate from SpO2 Sensor 77 Pulse Rhythm Pulse Rhythm [Apical] Pulse Strength Pulse Strength [Apical] Respiratory Rate 14 18 Respiratory Effort / Characteristics Respiratory Depth Respiratory Pattern Blood Pressure 133/63 137/70 Blood Pressure [Left Arm] Blood Pressure Mean 86 82 Blood Pressure Mean [Left Arm] Pulse Oximetry 95 95 Oxygen Delivery Method Sepsis Recent Fever Within 48 Hours Sepsis New/Unexplained Change in Mental Status Sepsis Action Taken by Nursing 12/15/24 20:15 12/15/24 20:15 12/15/24 20:15 Temperature Temperature Source Pulse Rate Pulse Rate [Apical] Pulse Rate from SpO2 Sensor Pulse Rhythm Pulse Rhythm [Apical] Pulse Strength Pulse Strength [Apical] Respiratory Rate Respiratory Effort / Characteristics Respiratory Depth Respiratory Pattern Blood Pressure 137/70 137/70 137/70 Blood Pressure [Left Arm] Blood Pressure Mean 82 82 82 Blood Pressure Mean [Left Arm] Pulse Oximetry Oxygen Delivery Method Sepsis Recent Fever Within 48 Hours Sepsis New/Unexplained Change in Mental Status Sepsis Action Taken by Nursing 12/15/24 20:18 12/15/24 20:27 12/15/24 20:32 Temperature Temperature Source Pulse Rate 79 77 Pulse Rate [Apical] Pulse Rate from SpO2 Sensor 78 77 Pulse Rhythm Pulse Rhythm [Apical] Pulse Strength Pulse Strength [Apical] Respiratory Rate 16 18 Respiratory Effort / Characteristics Respiratory Depth Respiratory Pattern Blood Pressure 128/34 L Blood Pressure [Left Arm] Blood Pressure Mean 94 Blood Pressure Mean [Left Arm] Pulse Oximetry 94 94 Oxygen Delivery Method Sepsis Recent Fever Within 48 Hours Sepsis New/Unexplained Change in Mental Status Sepsis Action Taken by Nursing 12/15/24 20:32 12/15/24 20:36 12/15/24 20:54 Temperature Temperature Source Pulse Rate 76 74 Pulse Rate [Apical] Pulse Rate from SpO2 Sensor 76 75 Pulse Rhythm Pulse Rhythm [Apical] Pulse Strength Pulse Strength [Apical] Respiratory Rate 16 18 Respiratory Effort / Characteristics Respiratory Depth Respiratory Pattern Blood Pressure 128/34 L Blood Pressure [Left Arm] Blood Pressure Mean 94 Blood Pressure Mean [Left Arm] Pulse Oximetry 95 97 Oxygen Delivery Method Sepsis Recent Fever Within 48 Hours Sepsis New/Unexplained Change in Mental Status Sepsis Action Taken by Nursing 12/15/24 21:27 12/15/24 21:30 12/15/24 21:30 Temperature Temperature Source Pulse Rate 73 76 Pulse Rate [Apical] Pulse Rate from SpO2 Sensor 73 75 Pulse Rhythm Pulse Rhythm [Apical] Pulse Strength Pulse Strength [Apical] Respiratory Rate 16 21 Respiratory Effort / Characteristics Respiratory Depth Respiratory Pattern Blood Pressure 138/84 Blood Pressure [Left Arm] Blood Pressure Mean 94 Blood Pressure Mean [Left Arm] Pulse Oximetry 99 94 Oxygen Delivery Method Sepsis Recent Fever Within 48 Hours Sepsis New/Unexplained Change in Mental Status Sepsis Action Taken by Nursing 12/15/24 21:30 Temperature Temperature Source Pulse Rate Pulse Rate [Apical] Pulse Rate from SpO2 Sensor Pulse Rhythm Pulse Rhythm [Apical] Pulse Strength Pulse Strength [Apical] Respiratory Rate Respiratory Effort / Characteristics Respiratory Depth Respiratory Pattern Blood Pressure 138/84 Blood Pressure [Left Arm] Blood Pressure Mean 94 Blood Pressure Mean [Left Arm] Pulse Oximetry Oxygen Delivery Method Sepsis Recent Fever Within 48 Hours Sepsis New/Unexplained Change in Mental Status Sepsis Action Taken by Nursing Laboratory Data Attestation: I reviewed the patient's lab results. 12/16/24 09:21 12/16/24 05:56 Lab Results 12/15/24 12/15/24 12/15/24 Range/Units 19:13 19:21 19:25 WBC 5.00 (4.8-10.8) K/ul RBC 3.99 L (4.20-5.40) M/uL Hgb 12.3 (12.0-16.0) g/dl POC Hgb 12.2 (12.0-16.0) g/dl Hct 38.1 (37.0-47.0) % POC Hct 36 L (37-47) % MCV 95.5 (80.0-100.0) fL MCH 30.8 (25.0-34.0) pg MCHC 32.3 (32.0-36.0) g/dL RDW Std Deviation 46.8 H (36.4-46.3) fL RDW Coeff of Jennifer 13.2 (11.5-14.5) % Plt Count 167 (130-400) K/uL MPV 8.9 L (9.4-12.4) fL Immature Gran % (Auto) 0.4 % Neut % (Auto) 53.8 % Lymph % (Auto) 31.0 % [place] % (Auto) 13.0 % Eos % (Auto) 1.6 % Baso % (Auto) 0.2 % Neut # (Auto) 2.69 (1.40-6.50) K/uL Lymph # (Auto) 1.55 (1.20-3.40) K/uL [place] # (Auto) 0.65 H (0.11-0.59) K/uL Eos # (Auto) 0.08 (0.00-0.50) K/uL Baso # (Auto) 0.01 (0.00-0.20) K/uL Immature Gran # (Auto) 0.02 (0.01-0.20) K/uL PT 26.1 H (9.0-12.0) Seconds INR 2.6 H (0.9-1.1) APTT 42 H (21-31) Seconds PTT Ratio 1.6 POC Sodium 141 (135-144) mmol/L Sodium 137 (136-145) mmol/L POC Potassium 4.5 (3.3-5.0) mmol/L Potassium 4.3 (3.5-5.1) mmol/L POC Chloride 106 (101-112) mmol/L Chloride 107 (98-107) mmol/L Carbon Dioxide 25 (21-32) mmol/L POC Total CO2 23 L (24-31) mmol/L Anion Gap 5 (3-11) POC Anion Gap 17.0 (16-25) mmol/L POC BUN 26 H (7-18) mg/dl BUN 28 H (6-23) mg/dl Creatinine 1.46 H (0.6-1.2) mg/dl POC Creatinine 1.6 H (0.6-1.3) mg/dl Est Cr Clr Drug Dosing 37.1 ml/min eGFR 38.01 BUN/Creatinine Ratio 19.2 (10-20) Glucose 66 L (70-99(Fasting)) mg/dl POC Glucose 72 (70-99) mg/dl POC Glucose (other) 65 L* (70-99) mg/dl Calcium 8.8 (8.6-10.3) mg/dl POC Ioniz Calcium Yoel 1.10 L (1.12-1.32) mmol/l Magnesium 2.3 (1.7-2.4) mg/dl Total Bilirubin 0.3 (0.2-1.0) mg/dl AST 32 (13-39) U/L ALT 39 (7-52) U/L Alkaline Phosphatase 48 (34-104) U/L Troponin I High Sens 3.0 (0-14) pg/ml Total Protein 6.4 (6.0-8.3) gm/dl Albumin 3.5 (3.4-5.0) gm/dl Globulin 2.9 (2.5-4.0) gm/dl Albumin/Globulin Ratio 1.2 (0.9-2) /15/ Range/Units 19:59 WBC (4.8-10.8) K/ul RBC (4.20-5.40) M/uL Hgb (12.0-16.0) g/dl POC Hgb (12.0-16.0) g/dl Hct (37.0-47.0) % POC Hct (37-47) % MCV (80.0-100.0) fL MCH (25.0-34.0) pg MCHC (32.0-36.0) g/dL RDW Std Deviation (36.4-46.3) fL RDW Coeff of Jennifer (11.5-14.5) % Plt Count (130-400) K/uL MPV (9.4-12.4) fL Immature Gran % (Auto) % Neut % (Auto) % Lymph % (Auto) % [place] % (Auto) % Eos % (Auto) % Baso % (Auto) % Neut # (Auto) (1.40-6.50) K/uL Lymph # (Auto) (1.20-3.40) K/uL [place] # (Auto) (0.11-0.59) K/uL Eos # (Auto) (0.00-0.50) K/uL Baso # (Auto) (0.00-0.20) K/uL Immature Gran # (Auto) (0.01-0.20) K/uL PT (9.0-12.0) Seconds INR (0.9-1.1) APTT (21-31) Seconds PTT Ratio POC Sodium (135-144) mmol/L Sodium (136-145) mmol/L POC Potassium (3.3-5.0) mmol/L Potassium (3.5-5.1) mmol/L POC Chloride (101-112) mmol/L Chloride (98-107) mmol/L Carbon Dioxide (21-32) mmol/L POC Total CO2 (24-31) mmol/L Anion Gap (3-11) POC Anion Gap (16-25) mmol/L POC BUN (7-18) mg/dl BUN (6-23) mg/dl Creatinine (0.6-1.2) mg/dl POC Creatinine (0.6-1.3) mg/dl Est Cr Clr Drug Dosing ml/min eGFR BUN/Creatinine Ratio (10-20) Glucose (70-99(Fasting)) mg/dl POC Glucose 224 H (70-99) mg/dl POC Glucose (other) (70-99) mg/dl Calcium (8.6-10.3) mg/dl POC Ioniz Calcium Yoel (1.12-1.32) mmol/l Magnesium (1.7-2.4) mg/dl Total Bilirubin (0.2-1.0) mg/dl AST (13-39) U/L ALT (7-52) U/L Alkaline Phosphatase (34-104) U/L Troponin I High Sens (0-14) pg/ml Total Protein (6.0-8.3) gm/dl Albumin (3.4-5.0) gm/dl Globulin (2.5-4.0) gm/dl Albumin/Globulin Ratio (0.9-2) Administered Medications Discontinued Medications Bupropion HCl (Bupropion Xl 150 Mg Tabcr) 150 [facility] Stop: 01/15/25 08:59 Last Admin: 12/16/24 08:26 Dose: 150 mg Documented By: OO Bupropion HCl (Bupropion Xl 300 Mg Tabcr) 300 mg [facility] Stop: 01/15/25 08:59 Last Admin: 12/16/24 08:26 Dose: 300 mg Documented By: OO Calcitriol (Calcitriol 0.25 Mcg Capsule) 0.25 mcg PO [id number] [facility] Stop: 01/15/25 08:59 Last Admin: 12/16/24 08:28 Dose: 0.25 mcg Documented By: REHAN Cetirizine HCl (Cetirizine Hcl 10 Mg Tablet) 10 mg PO DAILY [facility] Stop: 01/15/25 08:59 Last Admin: 12/16/24 08:27 Dose: 10 mg Documented By: REHAN Clozapine (Clozapine 25 Mg Tab) 50 mg PO [facility]; Protocol Stop: 01/14/25 23:14 Last Admin: 12/16/24 00:25 Dose: 50 mg Documented By: JULISA Cyanocobalamin (Cyanocobalamin (B-12) 500 Mcg Tablet) 1,000 mcg PO QAM [facility] Stop: 01/15/25 08:59 Last Admin: 12/16/24 08:27 Dose: 1,000 mcg Documented By: REHAN Dextrose (Dextrose 50% 50 Ml Syringe) 50 ml IV NOW ONE Stop: 12/15/24 19:34 Last Admin: 12/15/24 19:40 Dose: 50 ml Documented By: ASA Donepezil HCl (Donepezil Hcl 5 Mg Tab) 5 mg PO [facility] Stop: 01/14/25 23:14 Last Admin: 12/16/24 00:25 Dose: 5 mg Documented By: JULISA Escitalopram Oxalate (Escitalopram Oxalate 20 Mg Tab) 20 mg [facility] Stop: 01/15/25 08:59 Last Admin: 12/16/24 08:27 Dose: 20 mg Documented By: REHAN Gabapentin (Gabapentin 800 Mg Tab) 800 mg PO TID [facility] Stop: 01/15/25 08:59 Last Admin: 12/16/24 08:27 Dose: 800 mg Documented By: REHAN Sodium Chloride (Nss) 500 mls @ 999 mls/hr IV .Q31M ONE Stop: 12/15/24 19:22 Last Infusion: 12/15/24 20:26 Dose: Infused Documented By: Admin: 12/15/24 19:48 Dose: 999 mls/hr Documented By: ASA Sodium Chloride (Nss) 1,000 mls @ 80 mls/hr IV .[id number] [facility] Stop: 12/16/24 09:59 Last Admin: 12/15/24 22:04 Dose: 80 mls/hr Documented By: EMILIA Insulin Aspart (Insulin Aspart Per Unit Charge) 0 units SC ACHS [facility] Stop: 01/15/25 07:29 Last Admin: 12/16/24 08:25 Dose: 1 units Documented By: REHAN Co-signed By: FELICIANO Ioversol (Optiray 320 125ml) 119 ml IV ONCE ONE Stop: 12/15/24 19:07 Last Admin: 12/15/24 19:07 Dose: 119 ml Documented By: OLIVIA Ipratropium Patterson (Ipratropium [place] Nasal [place] 0.06% 15ml) 2 sprays JOSE MARTIN BID [facility] Stop: 01/15/25 08:59 Last Admin: 12/16/24 08:30 Dose: 2 sprays Documented By: REHAN Lamotrigine (Lamotrigine 100 Mg Tab) 150 mg PO [facility] Stop: 01/14/25 23:14 Last Admin: 12/16/24 00:23 Dose: 150 mg Documented By: JULISA Levothyroxine Sodium (Levothyroxine Sodium 50 Mcg Tablet) 50 mcg PO DAILYBB [facility] Stop: 01/15/25 06:29 Last Admin: 12/16/24 05:35 Dose: 50 mcg Documented By: JULISA Naltrexone HCl (Naltrexone Hcl 50 Mg Tab) 100 mg PO QAM [facility] Stop: 01/15/25 08:59 Last Admin: 12/16/24 08:29 Dose: 100 mg Documented By: REHAN Rosuvastatin Calcium (Rosuvastatin Calcium 20 Mg Tab) 20 mg PO HS [facility] Stop: 01/14/25 23:14 Last Admin: 12/16/24 00:24 Dose: 20 mg Documented By: JULISA Topiramate (Topiramate 50 Mg Tab) 50 mg PO BID [facility] Stop: 01/15/25 08:59 Last Admin: 12/16/24 08:29 Dose: 50 mg Documented By: REHAN Verapamil HCl (Verapamil Hcl 40 Mg Tab) 40 mg PO QPM [facility] Stop: 01/14/25 23:14 Last Admin: 12/16/24 00:26 Dose: 40 mg Documented By: JULISA Warfarin Sodium (Warfarin Sod 7.5 Mg Tab) 7.5 mg PO TuSa@1600 [facility] Stop: 01/14/25 23:26 Last Admin: 12/16/24 00:26 Dose: 7.5 mg Documented By: JULISA Imaging Data Radiologist's Impression: Chest X-Ray 12/15/24 18:52 Exam(s): XR CXR 1 VIEW EXAM: XR Chest, 1 View CLINICAL HISTORY: Reason for exam: neuro deficit, acute stroke suspected. TECHNIQUE: Frontal view of the chest. COMPARISON: 10/29/2023 FINDINGS: Lungs: No consolidation. No overt edema. Pleural space: No pleural effusion. No pneumothorax. Heart: Unremarkable. No cardiomegaly. IMPRESSION: No acute cardiopulmonary abnormality. Electronically signed by: Wayne Kirby MD 12/15/24 21:[address] 12/15/24 18:52 CT HEAD: HISTORY: Stroke TECHNIQUE: Noncontrast CT examination of the head is performed. Coronal and sagittal reformats were created.: COMPARISON: Brain CT October 29, 2024 FINDINGS: There is no evidence of intracranial hemorrhage, focal mass effect or midline shift. No fluid collection is identified. The ventricular system is midline and symmetric. No evidence of acute major vascular territory infarction. Chronic white matter ischemic changes No calvarial fracture is identified. The paranasal sinuses and mastoids are well aerated. IMPRESSION: No acute intracranial process identified. Notification to clinician of alert: [facility] was notified about above findings by phone on December 15, 2024 at 7:31 PM by Anton Sharif MD. Readback confirmation was obtained. Electronically signed by Anton Sharif 12-15-2024 7:45 PM Head CTA 12/15/24 18:52 HISTORY: Stroke TECHNIQUE: CT angiography of the head and the neck was performed. Coronal and sagittal reformats were created. IV CONTRAST: 100 mL of OMNIPAQUE 300 COMPARISON: CTA head and neck October 29, 2024 FINDINGS: CTA HEAD: Stenotic/occlusive disease: As before, the community outreach coordinator bilaterally demonstrate mild morphological irregularity. Aneurysm: None Vascular malformation: None CTA NECK: Right carotid: No hemodynamically significant stenosis. Left carotid: No hemodynamically significant stenosis. Vertebrobasilar system: No hemodynamically significant stenosis. Aortic arch and subclavian arteries: No hemodynamically significant stenosis. Nonvascular structures: Thyroid nodules measuring up to 1.2 cm.. Lower cervical spine laminectomies. Stenosis ranges are derived using NASCET criteria. IMPRESSION: No large vessel occlusion As before, bilateral community outreach coordinator demonstrate morphologic irregularity with mild narrowing. Vasospasm may be again present. Notification to clinician of alert: [facility] was notified about above findings by phone on December 15, 2024 at 7:31 PM by Anton Sharif MD. Readback confirmation was obtained. Electronically signed by Anton Sharif 12-15-2024 7:45 PM Neck CTA 12/15/24 18:52 HISTORY: Stroke TECHNIQUE: CT angiography of the head and the neck was performed. Coronal and sagittal reformats were created. IV CONTRAST: 100 mL of OMNIPAQUE 300 COMPARISON: CTA head and neck October 29, 2024 FINDINGS: CTA HEAD: Stenotic/occlusive disease: As before, the community outreach coordinator bilaterally demonstrate mild morphological irregularity. Aneurysm: None Vascular malformation: None CTA NECK: Right carotid: No hemodynamically significant stenosis. Left carotid: No hemodynamically significant stenosis. Vertebrobasilar system: No hemodynamically significant stenosis. Aortic arch and subclavian arteries: No hemodynamically significant stenosis. Nonvascular structures: Thyroid nodules measuring up to 1.2 cm.. Lower cervical spine laminectomies. Stenosis ranges are derived using NASCET criteria. IMPRESSION: No large vessel occlusion As before, bilateral community outreach coordinator demonstrate morphologic irregularity with mild narrowing. Vasospasm may be again present. Notification to clinician of alert: [facility] was notified about above findings by phone on December 15, 2024 at 7:31 PM by Anton Sharif MD. Readback confirmation was obtained. Electronically signed by Anton Sharif 12-15-2024 7:45 PM Discharge Plan Visit Data Chief Complaint: Stroke Alert Stated Complaint: Stroke Alert ED Provider: Burak Hoang Discharge Problem: Stroke-like symptoms, Cerebral vasospasm, Phillips's palsy, Bipolar disorder, Acute right-sided weakness, On warfarin therapy Patient Disposition: Admitted As Inpatient Condition: Fair Discharge Instructions Interventions: ED Discharge Assessment Last Done: 12/15/24 22:25 Discharge Problem: Bipolar disorder Qualifiers: Active/Remission status: remission status unspecified Qualified Code(s): F31.9 - Bipolar disorder, unspecified
[2024-12-15] MEDS: OPTIRAY 320 125ml IV ONE (19:07)
[2024-12-15 19:37] LABS: Hematocrit (blood only) 38.1 % (37.0-47.0); Hemoglobin 12.3 g/dl (12.0-16.0); Immature Granulocytes # (auto) 0.02 K/uL (0.01-0.20); Immature Granulocytes % (auto) 0.4 %; Mean Corpuscular Hemoglobin 30.8 pg (25.0-34.0); Mean Corpuscular Volume 95.5 fL (80.0-100.0); Platelet Count 167 K/uL (130-400); RDW Standard Deviation 46.8 fL (36.4-46.3); Red Blood Count 3.99 M/uL (4.20-5.40); White Blood Count 5.00 K/ul (4.8-10.8)
[2024-12-15] MEDS: DEXTROSE 50% 50 ML SYRINGE IV ONE (19:40)
--- NOTE | 2024-12-15 19:45 | CT Scan Report ---
HISTORY: Stroke TECHNIQUE: CT angiography of the head and the neck was performed. Coronal and sagittal reformats were created. IV CONTRAST: 100 mL of OMNIPAQUE 300 COMPARISON: CTA head and neck October 29, 2024 FINDINGS: CTA HEAD: Stenotic/occlusive disease: As before, the time study engineer bilaterally demonstrate mild morphological irregularity. Aneurysm: None Vascular malformation: None CTA NECK: Right carotid: No hemodynamically significant stenosis. Left carotid: No hemodynamically significant stenosis. Vertebrobasilar system: No hemodynamically significant stenosis. Aortic arch and subclavian arteries: No hemodynamically significant stenosis. Nonvascular structures: Thyroid nodules measuring up to 1.2 cm.. Lower cervical spine laminectomies. Stenosis ranges are derived using NASCET criteria. IMPRESSION: No large vessel occlusion As before, bilateral time study engineer demonstrate morphologic irregularity with mild narrowing. Vasospasm may be again present. Notification to clinician of alert: [facility] was notified about above findings by phone on December 15, 2024 at 7:31 PM by Anton Sharif MD. Readback confirmation was obtained. Electronically signed by Anton Sharif 12-15-2024 7:45 PM
--- NOTE | 2024-12-15 19:45 | CT Scan Report ---
HISTORY: Stroke TECHNIQUE: CT angiography of the head and the neck was performed. Coronal and sagittal reformats were created. IV CONTRAST: 100 mL of OMNIPAQUE 300 COMPARISON: CTA head and neck October 29, 2024 FINDINGS: CTA HEAD: Stenotic/occlusive disease: As before, the tetryl screen operator bilaterally demonstrate mild morphological irregularity. Aneurysm: None Vascular malformation: None CTA NECK: Right carotid: No hemodynamically significant stenosis. Left carotid: No hemodynamically significant stenosis. Vertebrobasilar system: No hemodynamically significant stenosis. Aortic arch and subclavian arteries: No hemodynamically significant stenosis. Nonvascular structures: Thyroid nodules measuring up to 1.2 cm.. Lower cervical spine laminectomies. Stenosis ranges are derived using NASCET criteria. IMPRESSION: No large vessel occlusion As before, bilateral tetryl screen operator demonstrate morphologic irregularity with mild narrowing. Vasospasm may be again present. Notification to clinician of alert: [facility] was notified about above findings by phone on December 15, 2024 at 7:31 PM by Anton Sharif MD. Readback confirmation was obtained. Electronically signed by Anton Sharif 12-15-2024 7:45 PM
--- NOTE | 2024-12-15 19:45 | CT Scan Report ---
CT HEAD: HISTORY: Stroke TECHNIQUE: Noncontrast CT examination of the head is performed. Coronal and sagittal reformats were created.: COMPARISON: Brain CT October 29, 2024 FINDINGS: There is no evidence of intracranial hemorrhage, focal mass effect or midline shift. No fluid collection is identified. The ventricular system is midline and symmetric. No evidence of acute major vascular territory infarction. Chronic white matter ischemic changes No calvarial fracture is identified. The paranasal sinuses and mastoids are well aerated. IMPRESSION: No acute intracranial process identified. Notification to clinician of alert: [facility] was notified about above findings by phone on December 15, 2024 at 7:31 PM by Anton Sharif MD. Readback confirmation was obtained. Electronically signed by Anton Sharif 12-15-2024 7:45 PM
[2024-12-15] MEDS: SODIUM CHLORIDE 0.9% 500 ML IV ONE (19:48)
[2024-12-15 19:54] LABS: Alanine Aminotransferase 39.0 U/L (7-52); Albumin Globulin Ratio 1.2 (0.9-2); Alkaline Phosphatase 48.0 U/L (34-104); Anion Gap 5.0 (3-11); Bilirubin,Total 0.3 mg/dl (0.2-1.0); Blood Urea Nitrogen 28.0 mg/dl (6-23); Calcium 8.8 mg/dl (8.6-10.3); Carbon Dioxide 25.0 mmol/L (21-32); Chloride 107.0 mmol/L (98-107); Creatinine Clr Calc Pharmacy 37.1 ml/min; Globulin 2.9 gm/dl (2.5-4.0); Glucose 66.0 mg/dl (70-99(Fasting)); Magnesium 2.3 mg/dl (1.7-2.4); Potassium 4.3 mmol/L (3.5-5.1); Sodium 137.0 mmol/L (136-145); Total Protein 6.4 gm/dl (6.0-8.3)
[2024-12-15 20:11] LABS: INR 2.6 (0.9-1.1); Partial Thromboplastin Time 42 Seconds (21-31); Prothrombin Time 26.1 Seconds (9.0-12.0)
--- NOTE | 2024-12-15 21:19 | XRay Report ---
Exam(s): XR CXR 1 VIEW EXAM: XR Chest, 1 View CLINICAL HISTORY: Reason for exam: neuro deficit, acute stroke suspected. TECHNIQUE: Frontal view of the chest. COMPARISON: 10/29/2023 FINDINGS: Lungs: No consolidation. No overt edema. Pleural space: No pleural effusion. No pneumothorax. Heart: Unremarkable. No cardiomegaly. IMPRESSION: No acute cardiopulmonary abnormality. Electronically signed by: Wayne Kirby MD 12/15/24 21:18 PM
[2024-12-15 21:41] LABS: Appearance Urine Clear (Clear); Glucose Urine UA 2+ (Negative)
--- NOTE | 2024-12-15 22:00 | History & Physical Report ---
Date of Service December 15, 2024 Assessment & Plan (1) Right sided weakness: (2) Cerebral vasospasm: (3) Adverse drug effect: (4) Focal epilepsy with impairment of consciousness: (5) CKD stage 3 due to type 2 diabetes mellitus: Plan The patient is a 74-year-old female with a past medical history including cerebral vasospasm, SNHL bilaterally, vertebrobasilar insufficiency, diabetic peripheral neuropathy, mild cognitive impairment, idiopathic peripheral neuropathy, focal epilepsy with impairment of consciousness, tardive dyskinesia, CKD stage III, postlaminectomy syndrome, bipolar disorder, memory loss, and imbalance. The patient presents to the emergency department with right upper and lower extremity weakness, that began shortly after starting Rexulti 4 evenings ago, and became acutely worse earlier in the day today. Workup in the emergency department included negative CT scan of head. CTA head and neck showed no change in mild narrowing of bilateral cigarette packer. CVA/right upper extremity and lower extremity weakness- Patient reports that her symptoms began after starting Rexulti 4 evenings ago, which will be held CT head without contrast negative CTA head and neck shows mild narrowing of bilateral cigarette packer, which had been noted before, and thought possibly due to cerebral vasospasm. Patient has a metal bone stimulator, and is therefore not able to get an MRI this evening Will repeat CT scan in the a.m. Therapeutic on warfarin with INR 2.6, continue to follow serially Bipolar disorder/epilepsy/peripheral neuropathy/tardive dyskinesia- Continue bupropion, clozapine, donepezil, escitalopram, gabapentin, lamotrigine, naltrexone, and topiramate Migraine disorder- Continue verapamil, holding propranolol due to borderline blood pressure Chronic kidney disease- Creatinine 1.46, with base 1.5 to Has received normal saline 500 mL bolus in the ED Continue NSS at 80 mL/h x 1 additional liter Of note, patient did receive IV contrast dye via CTA head and neck, and will need to be hydrated and then recheck laboratories in a.m. to assess for possible kidney injury History of Present Illness Chief Complaint: The patient presents to the emergency department with right upper and lower ext remity weakness that began slowly over the weekend, and worsened more acutely during the day today. She has had ongoing issues with swallowing, which have not changed. She reports having started Rexulti, and has had a dose over the past 4 evenings, and she is concerned that her symptoms may be due to Rexulti. Primary Care Provider: Darcy Jasso DO The patient is a 74-year-old female with a past medical history including cerebral vasospasm, SNHL bilaterally, vertebrobasilar insufficiency, diabetic peripheral neuropathy, mild cognitive impairment, idiopathic peripheral neuropathy, focal epilepsy with impairment of consciousness, tardive dyskinesia, CKD stage III, postlaminectomy syndrome, bipolar disorder, memory loss, and imbalance. The patient presents to the emergency department with right upper and lower extremity weakness, that began shortly after starting Rexulti 4 evenings ago, and became acutely worse earlier in the day today. Workup in the emergency department included negative CT scan of head. CTA head and neck showed no change in mild narrowing of bilateral cigarette packer. Allergies Allergy/AdvReac Type Severity Reaction Status Date / Time amoxicillin [From Augmentin] Allergy Severe Rash Verified 12/09/24 10:43 clavulanic acid Allergy Severe Rash Verified 12/09/24 10:43 [From Augmentin] metoclopramide Allergy Severe facial Verified 12/09/24 10:43 swelling and blisters doxycycline Allergy Intermediate ? Verified 12/09/24 10:43 tetracycline, doxy caused itching (rechallenge 02/2017) fluticasone Allergy Intermediate BURNED Verified 12/09/24 10:43 NASAL PASSAGES Penicillins Allergy Intermediate Rash, hand Verified 12/09/24 10:43 swelling/redness tetracycline Allergy Intermediate ?--long Verified 12/09/24 10:43 time ago, doxy caused itching (rechallenge 02/2017) tolterodine Allergy Intermediate HIVES Verified 12/09/24 10:43 triamcinolone [From Kenalog] Allergy Intermediate Rash Verified 12/09/24 10:43 Tetracyclines Allergy Unknown Unknown Verified 12/09/24 10:43 Home Medications Medication Instructions Recorded Confirmed Type bupropion HCl 150 mg 24 hr tablet, 150 mg PO QAM 03/06/18 12/15/24 History extended release (Wellbutrin XL) bupropion HCl 300 mg 24 hr tablet, 300 mg PO QAM 08/20/18 12/15/24 History extended release (Wellbutrin XL) propranolol 40 mg tablet 40 mg PO BID 06/25/19 12/15/24 History lamotrigine 150 mg tablet 150 mg PO HS 09/28/19 12/15/24 History (Lamictal) cholecalciferol (vitamin D3) 25 2,000 unit PO HS 05/09/20 12/15/24 History mcg (1,000 unit) capsule TRUEplus Lancets 33 gauge (lancets) #300 ea 06/27/21 12/15/24 Rx lancets 33 gauge (TRUEplus Lancets) #300 ea 02/22/23 12/15/24 Rx blood-glucose meter (OneTouch #1 ea 06/06/23 12/15/24 Rx Verio Flex Meter) lancets 30 gauge (OneTouch Delica #200 ea 06/06/23 12/15/24 Rx Plus Lancet) naltrexone 50 mg tablet 100 mg PO QAM 08/23/23 12/15/24 History cyanocobalamin (vitamin B-12) 1,000 mcg PO QAM 10/02/23 12/15/24 History 1,000 mcg tablet (Vitamin B-12) cetirizine 10 mg tablet 10 mg PO DAILY #30 tabs 01/01/24 12/15/24 Rx dapagliflozin propanediol 10 mg 10 mg PO QAM #90 tabs 04/21/24 12/15/24 Rx tablet (Farxiga) escitalopram oxalate 20 mg tablet 20 mg PO QAM 05/28/24 12/15/24 History blood sugar diagnostic (OneTouch #200 ea 06/29/24 12/15/24 Rx Verio test strips) levothyroxine 50 mcg tablet 50 mcg PO QAM 90 days #90 tabs 08/24/24 12/15/24 Rx albuterol sulfate 90 mcg/actuation 2 puff inhalation Q4H PRN 09/01/24 12/15/24 Rx aerosol inhaler shortness of breath #1 inhaler warfarin 5 mg tablet See Rx Instructions PO UD 09/22/24 12/15/24 History donepezil 5 mg tablet 5 mg PO HS #30 tabs 10/15/24 12/15/24 Rx mupirocin 2 % topical ointment See Rx Instructions .Route 10/15/24 12/15/24 History .COMPLEX PRN as directed verapamil 40 mg tablet 40 mg PO QPM #30 tabs 11/09/24 12/15/24 Rx tirzepatide 7.5 mg/0.5 mL 7.5 mg (0.5 mL) subcut Q7D #2 mL 11/12/24 12/15/24 Rx subcutaneous pen injector topiramate 50 mg tablet (Topamax) 50 mg PO BID #180 tabs 11/12/24 12/15/24 Rx clozapine 50 mg tablet 50 mg PO HS 11/16/24 12/15/24 History rosuvastatin 20 mg tablet 20 mg PO HS #90 tabs 12/03/24 12/15/24 Rx gabapentin 800 mg tablet 800 mg PO TID 12/09/24 12/15/24 History ipratropium bromide 42 mcg (0.06 2 spray intranasal BID 12/09/24 12/15/24 History %) nasal spray brexpiprazole 1 mg tablet (Rexulti) 1 mg PO DAILY 12/15/24 12/15/24 History calcitriol 0.25 mcg capsule 0.25 mcg PO 3XWK 12/15/24 12/15/24 History cranberry fruit 400 mg tablet 400 mg PO QPM 12/15/24 12/15/24 History Past Med/Surg History Problem List (Updated 12/15/24 @ 22:07 by Chai Lees MD) Adverse drug effect Right sided weakness Cervical radiculopathy Headache Cerebral vasospasm Sensorineural hearing loss (SNHL) of both ears VBI (vertebrobasilar insufficiency) Urinary incontinence Diabetic peripheral neuropathy Mild cognitive impairment Trochanteric bursitis of right hip Left knee DJD Other abnormalities of gait and mobility Muscle weakness Idiopathic peripheral neuropathy Focal epilepsy with impairment of consciousness reports no seizure activity since 2019 > follows with Dr. Martinez Leukopenia (Acute) Thickened nails Diabetic foot Right knee DJD Degenerative joint disease of right hip Benign essential hypertension Tardive dyskinesia History of colon polyps CKD stage 3 due to type 2 diabetes mellitus Morbid obesity Metabolic syndrome Multiple drug allergies Calculus of kidney Tremor Dysphagia Sensorineural hearing loss (SNHL) of left ear with restricted hearing of right ear Secondary hyperparathyroidism pt unaware H/O idiopathic seizure Diabetic peripheral neuropathy associated with type 2 diabetes mellitus Dyslipidemia Post laminectomy syndrome (Acute) Anxiety and depression Phillips's palsy hx of Diabetes mellitus, type II (Chronic) Non-proliferative diabetic retinopathy Sacral neurostimulator in situ Chronic back pain Neuropathy bilateral feet and bilateral fingertips. 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 Tardive dyskinesia Post laminectomy syndrome Hypertension Falls frequently last fall August 2023 - pt to have an MRI of head since last fall she has been having headaches. follows with Dr Martinez. H/O idiopathic seizure pt unaware Tremor benign bilateral hands Gait disturbance Osteoporosis History of kidney stones Depression Anxiety CKD stage 3 due to type 2 diabetes mellitus follows with Dr. Gracia Hyperlipidemia Difficulty swallowing Diabetes mellitus, type 2 NIDDM Pulmonary embolism on right (05/29/13) ~2012, reason for Warfarin. unknown cause. Surgical History S/P placement of nerve stimulator 06/2023 sacral neuromodulator History of cataract surgery bilateral Hx of surgical procedure bone stimulator > lumbar > 2006 - no longer active sacral neuromodulator trial 06/10/23, first and second stages completed 06/2023 with lead revision in August 2023 History of lumbar surgery x2 fusion unsure of level History of dilatation and curettage History of lithotripsy History of esophagogastroduodenoscopy (EGD) History of colonoscopy with polypectomy History of cholecystectomy Hx of right inguinal hernia repair History of tooth extraction History of tonsillectomy Hx of cervical spine surgery Laminectomy (no hardware) but states ROM limited all directions History of cardiac cath [facility] > s > no stents History of left mastoidectomy Family History Father , of an CO at uncertain age. Myocardial infarction Mother , age 85 of pulmonary issues. Lung disease Other FHx: heart disease Family history of diabetes mellitus No family history of adverse response to anesthesia Denies family history of Ovarian cancer Prostate cancer Breast cancer Colorectal cancer Social History Smoking Status: Never smoker Tobacco Type: Cigarettes Age Started Using Tobacco: 15; Age Quit Using Tobacco: 27; packs per day: 0.50; Second Hand Exposure: No; Do You Dip or Chew Tobacco: No; Hx Alcohol Use: No Hx Substance Use: No Preferred Language: German Communication Ability: Effective Visual Impairment: No Limitations Hearing Ability: Hard of Hearing Can Worker Required: No Beliefs That Will Affect Care: None marital status: Current Living Situation: Family and Significant Other Current Living Situation Comment: lives with Lin cool current occupational status: retired current occupation: Former IT ANALYST, 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 41 Feels Safe at Home: Yes Childhood Exposure to Second-Hand Smoke: Yes Seatbelt Use: always Sunscreen Use: No Assistive Devices: None Review of Systems Review of Systems: The patient denies chest pain, palpitations, shortness of breath, dyspnea on exertion, cough, lower extremity swelling, sore throat, fevers, chills, sweats, nausea, vomiting, diarrhea , constipation, abdominal pain, pelvic pain, blood in urine or stool, dysuria, urinary frequency or urgency, lightheadedness, dizziness, headache, loss of consciousness, rash, abnormal bruising or bleeding, focal weakness, numbness or tingling in left arm or leg, generalized arthralgias or myalgias, back or neck pain, or night sweats. The review of systems is otherwise negative other than for that already noted above, and at least 10 systems have been reviewed. Physical Exam Physical Exam: The patient is awake, alert and oriented 3, lying in bed and in no acute distress. HEENT--PERRL, EOMI, mucous membranes and oropharynx dry. Neck--supple. No JVD. No bruits. Thyroid normal, trachea midline, no adenopathy. Heart--normal S1 and S2. No murmurs, rubs or gallops. Lungs--clear bilaterally, no respiratory distress, no accessory muscle use. Abdomen--normal bowel sounds and soft. Nontender. Nondistended, no hernias or masses, no organomegaly. Extremities--no cyanosis or clubbing. No edema. Dermatologic--normal skin turgor, normal color, no abnormal lymph nodes, no rash. Neurologic--old Phillips's Palsy, 3/5 RUE and RLE weakness Rheumatologic--ROM on right limited due to weakness Psychiatric--normal affect. Results & Data Results & Data Vital Signs (Past 12 Hours) Vital Signs Temp Pulse Pulse Resp BP BP Pulse Ox 12/15/24 20:54 74 18 97 12/15/24 20:36 76 16 95 12/15/24 20:32 128/34 L 12/15/24 20:32 128/34 L 12/15/24 20:27 77 18 94 12/15/24 20:18 79 16 94 12/15/24 20:15 137/70 12/15/24 20:15 137/70 12/15/24 20:15 137/70 12/15/24 20:15 137/70 12/15/24 20:06 76 18 95 12/15/24 20:03 77 14 133/63 95 12/15/24 19:30 78 22 157/66 H 98 12/15/24 19:26 78 17 97/75 L 96 12/15/24 19:22 78 12/15/24 19:06 36.8 C 75 18 154/86 H 93 12/15/24 19:06 95 12/15/24 19:06 36.6 C 76 18 154/86 H 93 O2 Del Method 12/15/24 20:54 12/15/24 20:36 12/15/24 20:32 12/15/24 20:32 12/15/24 20:27 12/15/24 20:18 12/15/24 20:15 12/15/24 20:15 12/15/24 20:15 12/15/24 20:15 12/15/24 20:06 12/15/24 20:03 12/15/24 19:30 12/15/24 19:26 12/15/24 19:22 12/15/24 19:06 Room Air 12/15/24 19:06 Room Air 12/15/24 19:06 Room Air Laboratory Results Laboratory Results WBC 5.00 K/ul (4.8-10.8) 12/15/24 19:21 RBC 3.99 M/uL (4.20-5.40) L 12/15/24 19:21 Hgb 12.3 g/dl (12.0-16.0) 12/15/24 19:21 POC Hgb 12.2 g/dl (12.0-16.0) 12/15/24 19: Hct 38.1 % (37.0-47.0) 12/15/24 19: POC Hct 36 % (37-47) L 12/15/24: MCV 95.5 fL (80.0-100.0) 12/15/24 19: MCH 30.8 pg (25.0-34.0) 12/15/24 19: MCHC 32.3 g/dL (32.0-36.0) 12/15/24: RDW Std Deviation 46.8 fL (36.4-46.3) H 12/15/24 19: RDW Coeff of Jennifer 13.2 % (11.5-14.5) 12/15/24: Plt Count 167 K/uL (130-400) 12/15/24: MPV 8.9 fL (9.4-12.4) L 12/15/24 19: Immature Gran % (Auto) 0.4 % 12/15/24: Neut % (Auto) 53.8 % 12/15/24: Lymph % (Auto) 31.0 % 12/15/24 19:21 [place] % (Auto) 13.0 % 12/15/24 19:21 Eos % (Auto) 1.6 % 12/15/24 19: Baso % (Auto) 0.2 % 12/15/24: Neut # (Auto) 2.69 K/uL (1.40-6.50) 12/15/24 19: Lymph # (Auto) 1.55 K/uL (1.20-3.40) 12/15/24 19: [place] # (Auto) 0.65 K/uL (0.11-0.59) H 12/15/24 19:21 Eos # (Auto) 0.08 K/uL (0.00-0.50) 12/15/24: Baso # (Auto) 0.01 K/uL (0.00-0.20) 12/15/24 19: Immature Gran # (Auto) 0.02 K/uL (0.01-0.20) 12/15/24 19: PT 26.1 Seconds (9.0-12.0) H 12/15/24 19: INR 2.6 (0.9-1.1) H 12/15/24 19:21 APTT 42 Seconds (21-31) H 12/15/24 19:21 PTT Ratio 1.6 12/15/24 19:21 POC Sodium 141 mmol/L (135-144) 12/15/24 19:25 Sodium 137 mmol/L (136-145) 12/15/24 19:21 POC Potassium 4.5 mmol/L (3.3-5.0) 12/15/24:25 Potassium 4.3 mmol/L (3.5-5.1) 12/15/24 19:21 POC Chloride 106 mmol/L (101-112) 12/15/24:25 Chloride 107 mmol/L (98-107) 12/15/24 19:21 Carbon Dioxide 25 mmol/L (21-32) 12/15/24 19: POC Total CO2 23 mmol/L (24-31) L 12/15/24 19:25 Anion Gap 5 (3-11) 12/15/24 19:21 POC Anion Gap 17.0 mmol/L (16-25) 12/15/24 19:25 POC BUN 26 mg/dl (7-18) H 12/15/24 19:25 BUN 28 mg/dl (6-23) H 12/15/24 19:21 Creatinine 1.46 mg/dl (0.6-1.2) H 12/15/24 19:21 POC Creatinine 1.6 mg/dl (0.6-1.3) H 12/15/24 19:25 Est Cr Clr Drug Dosing 37.1 ml/min 12/15/24 19:21 eGFR 38.01 12/15/24 19:21 BUN/Creatinine Ratio 19.2 (10-20) 12/15/24 19:21 Glucose 66 mg/dl (70-99(Fasting)) L 12/15/24 19:21 POC Glucose 224 mg/dl (70-99) H 12/15/24 19:59 POC Glucose (other) 65 mg/dl (70-99) L* 12/15/24 19:25 Calcium 8.8 mg/dl (8.6-10.3) 12/15/24 19:21 POC Ioniz Calcium Yoel 1.10 mmol/l (1.12-1.32) L 12/15/24 19:25 Magnesium 2.3 mg/dl (1.7-2.4) 12/15/24 19:21 Total Bilirubin 0.3 mg/dl (0.2-1.0) 12/15/24 19:21 AST 32 U/L (13-39) 12/15/24 19:21 ALT 39 U/L (7-52) 12/15/24 19:21 Alkaline Phosphatase 48 U/L (34-104) 12/15/24 19:21 Troponin I High Sens 3.0 pg/ml (0-14) 12/15/24 19:21 Total Protein 6.4 gm/dl (6.0-8.3) 12/15/24 19:21 Albumin 3.5 gm/dl (3.4-5.0) 12/15/24 19:21 Globulin 2.9 gm/dl (2.5-4.0) 12/15/24 19:21 Albumin/Globulin Ratio 1.2 (0.9-2) 12/15/24 19:21 Urine Color Yellow 12/15/24 Unknown Urine Appearance Clear (Clear) 12/15/24 Unknown Urine pH 7.0 (4.5-7.5) 12/15/24 Unknown Ur Specific [place] 1.027 (1.000-1.030) 12/15/24 Unknown Urine Protein Negative (Negative) 12/15/24 Unknown Urine Glucose (UA) 2+ (Negative) H 12/15/24 Unknown Urine Ketones Negative (Negative) 12/15/24 Unknown Urine Blood Negative (Negative) 12/15/24 Unknown Urine Nitrite Negative (Negative) 12/15/24 Unknown Urine Bilirubin Negative (Negative) 12/15/24 Unknown Urine Urobilinogen Negative (Negative) 12/15/24 Unknown Ur Leukocyte Esterase Negative (Negative) 12/15/24 Unknown Urine Comment 12/15/24 Unknown Impressions Chest X-Ray 12/15/24 18:52 Exam(s): XR CXR 1 VIEW EXAM: XR Chest, 1 View CLINICAL HISTORY: Reason for exam: neuro deficit, acute stroke suspected. TECHNIQUE: Frontal view of the chest. COMPARISON: 10/29/2023 FINDINGS: Lungs: No consolidation. No overt edema. Pleural space: No pleural effusion. No pneumothorax. Heart: Unremarkable. No cardiomegaly. IMPRESSION: No acute cardiopulmonary abnormality. Electronically signed by: Wayne Kirby MD 12/15/24 21:[address] 12/15/24 18:52 CT HEAD: HISTORY: Stroke TECHNIQUE: Noncontrast CT examination of the head is performed. Coronal and sagittal reformats were created.: COMPARISON: Brain CT October 29, 2024 FINDINGS: There is no evidence of intracranial hemorrhage, focal mass effect or midline shift. No fluid collection is identified. The ventricular system is midline and symmetric. No evidence of acute major vascular territory infarction. Chronic white matter ischemic changes No calvarial fracture is identified. The paranasal sinuses and mastoids are well aerated. IMPRESSION: No acute intracranial process identified. Notification to clinician of alert: [facility] was notified about above findings by phone on December 15, 2024 at 7:31 PM by Anton Sharif MD. Readback confirmation was obtained. Electronically signed by Anton Sharif 12-15-2024 7:45 PM Head CTA 12/15/24 18:52 HISTORY: Stroke TECHNIQUE: CT angiography of the head and the neck was performed. Coronal and sagittal reformats were created. IV CONTRAST: 100 mL of OMNIPAQUE 300 COMPARISON: CTA head and neck October 29, 2024 FINDINGS: CTA HEAD: Stenotic/occlusive disease: As before, the cigarette packer bilaterally demonstrate mild morphological irregularity. Aneurysm: None Vascular malformation: None CTA NECK: Right carotid: No hemodynamically significant stenosis. Left carotid: No hemodynamically significant stenosis. Vertebrobasilar system: No hemodynamically significant stenosis. Aortic arch and subclavian arteries: No hemodynamically significant stenosis. Nonvascular structures: Thyroid nodules measuring up to 1.2 cm.. Lower cervical spine laminectomies. Stenosis ranges are derived using NASCET criteria. IMPRESSION: No large vessel occlusion As before, bilateral cigarette packer demonstrate morphologic irregularity with mild narrowing. Vasospasm may be again present. Notification to clinician of alert: [facility] was notified about above findings by phone on December 15, 2024 at 7:31 PM by Anton Sharif MD. Readback confirmation was obtained. Electronically signed by Anton Sharfi 12-15-2024 7:45 PM Neck CTA 12/15/24 18:52 HISTORY: Stroke TECHNIQUE: CT angiography of the head and the neck was performed. Coronal and sagittal reformats were created. IV CONTRAST: 100 mL of OMNIPAQUE 300 COMPARISON: CTA head and neck October 29, 2024 FINDINGS: CTA HEAD: Stenotic/occlusive disease: As before, the cigarette packer bilaterally demonstrate mild morphological irregularity. Aneurysm: None Vascular malformation: None CTA NECK: Right carotid: No hemodynamically significant stenosis. Left carotid: No hemodynamically significant stenosis. Vertebrobasilar system: No hemodynamically significant stenosis. Aortic arch and subclavian arteries: No hemodynamically significant stenosis. Nonvascular structures: Thyroid nodules measuring up to 1.2 cm.. Lower cervical spine laminectomies. Stenosis ranges are derived using NASCET criteria. IMPRESSION: No large vessel occlusion As before, bilateral cigarette packer demonstrate morphologic irregularity with mild narrowing. Vasospasm may be again present. Notification to clinician of alert: [facility] ED was notified about above findings by phone on December 15, 2024 at 7:31 PM by Anton Sharif MD. Readback confirmation was obtained. Electronically signed by Anton Sharif 12-15-2024 7:45 PM Code Status & VTE Plan Code Status Full code VTE Prophylaxis Plan VTE Prophylaxis will be ordered: Yes PG Care Time/CCT Total # of Minutes Spent Total Time Spent with Patient: Total time spent is greater than 50% in coordination of care (as documented) at patient's floor/unit and/or counseling patient: Coding Level of Care Code 72316 INT INP/OBS CARE 3/75MIN Diagnoses Right sided weakness R53.1 Cerebral vasospasm I67.848 Adverse drug effect T50.905A Focal epilepsy with impairment of consciousness G40.209 CKD stage 3 due to type 2 diabetes mellitus E11.22; N18.30
[2024-12-15] MEDS: SODIUM CHLORIDE 0.9% 1,000 ML IV SCH (22:04)
[2024-12-15] MEDS ORDERED: GLUCOSE 40% GEL 15 GM TUBE PO PRN (22:44)
[2024-12-15] MEDS ORDERED: ALBUTEROL HFA 8 GM INHALER INH PRN (22:44)
[2024-12-15] MEDS ORDERED: CARBOHYDRATES FOR HYPOGLYCEMIA PO PRN (22:44)
[2024-12-15] MEDS ORDERED: PHARMACIST DISCHARGE MED REC CONSULT PRN (22:44)
[2024-12-15] MEDS ORDERED: DEXTROSE 50% 50 ML SYRINGE IV PRN (22:44)
[2024-12-15] MEDS ORDERED: ONDANSETRON INJ 2 MG/ML 2 ML VIAL IV PRN (22:44)
[2024-12-15] MEDS ORDERED: GLUCOSE 10 TAB/TUBE PO PRN (22:44)
[2024-12-15] MEDS ORDERED: GLUCAGON FOR INJ 1 MG VIAL SQ PRN (22:44)
[2024-12-15] MEDS ORDERED: ACETAMINOPHEN 325 MG TAB PO PRN (22:44)
[2024-12-15 23:10] LABS: Hematocrit (blood only) 39.9 % (37.0-47.0); Hemoglobin 13.1 g/dl (12.0-16.0); Immature Granulocytes # (auto) 0.01 K/uL (0.01-0.20); Immature Granulocytes % (auto) 0.2 %; Mean Corpuscular Hemoglobin 31.2 pg (25.0-34.0); Mean Corpuscular Volume 95.0 fL (80.0-100.0); Platelet Count 164 K/uL (130-400); RDW Standard Deviation 45.5 fL (36.4-46.3); Red Blood Count 4.20 M/uL (4.20-5.40); White Blood Count 4.58 K/ul (4.8-10.8)
[2024-12-16] MEDS: lamoTRIgine 100 MG TAB PO SCH (00:23)
[2024-12-16] MEDS: ROSUVASTATIN CALCIUM 20 MG TAB PO SCH (00:24)
[2024-12-16] MEDS: DONEPEZIL HCL 5 MG TAB PO SCH (00:25)
[2024-12-16] MEDS: VERAPAMIL HCL 40 MG TAB PO SCH (00:26)
[2024-12-16] MEDS: WARFARIN SOD 7.5 MG TAB PO SCH (00:26)
[2024-12-16] MEDS: LEVOTHYROXINE SODIUM 50 MCG TABLET PO SCH (05:35)
[2024-12-16 06:59] LABS: Anion Gap 6.0 (3-11); Calcium 8.4 mg/dl (8.6-10.3); Carbon Dioxide 23.0 mmol/L (21-32); Chloride 113.0 mmol/L (98-107); Magnesium 2.1 mg/dl (1.7-2.4); Potassium 3.9 mmol/L (3.5-5.1); Sodium 142.0 mmol/L (136-145)
[2024-12-16 07:03] LABS: INR 2.6 (0.9-1.1); Prothrombin Time 26.1 Seconds (9.0-12.0)
[2024-12-16 07:05] LABS: Blood Urea Nitrogen 25.0 mg/dl (6-23); Cholesterol 132.0 mg/dl (0-200); Creatinine Clr Calc Pharmacy 40.1 ml/min; Glucose 81.0 mg/dl (70-99(Fasting)); HDL Cholesterol 54.0 mg/dl; Triglycerides 109.0 mg/dl (0-150)
[2024-12-16 07:08] LABS: Hemoglobin A1C 5.8 % (4.5-5.6)
[2024-12-16 07:12] VITALS: BP 121/63; PULSE 76; RESP 20; TEMP 97.3; O2SAT 96
--- NOTE | 2024-12-16 08:18 | CT Scan Report ---
CT SCAN OF THE BRAIN WITHOUT IV CONTRAST CLINICAL HISTORY: Stroke. COMPARISON STUDY: CT of the brain dated 12/15/2024 TECHNIQUE: Unenhanced axial CT scan of the brain is performed from the vertex to the skull base. Imag es are reviewed in the axial, sagittal, coronal planes. A dose lowering technique was utilized adheri ng to the principles of ALARA. CT DOSE: 625.8 mGy.cm FINDINGS: Brain parenchyma: There is age-related involutional change noting mild subcortical and periventricula r microangiopathic disease. There is no hemorrhage, mass effect, or evidence of acute territorial isc hemia by CT criteria. Huizar-white matter differentiation is preserved. No extra-axial fluid collection is seen. Ventricles, sulci, cisterns: Prominent secondary to involutional change. Intracranial vasculature: There is atherosclerotic calcification of the cavernous carotid arteries. Calvarium: Unremarkable. Sinuses and mastoids: The paranasal sinuses are clear. There is evidence of previous left mastoid ander justyn. The mastoid air cells are well pneumatized. Orbits: The bony orbits are grossly intact. There are bilateral ocular lens implants. IMPRESSION: There is no hemorrhage, mass effect, or evidence of acute territorial ischemia by CT [place]. ACT 112: Negative or not required by law. Electronically signed by: Jhony Ortiz M.D. 12/16/2024 8:17 AM
[2024-12-16] MEDS: INSULIN ASPART PER UNIT CHARGE SC SCH (08:25)
[2024-12-16] MEDS: GABAPENTIN 800 MG TAB PO SCH (08:27)
[2024-12-16] MEDS: CETIRIZINE HCL 10 MG TABLET PO SCH (08:27)
[2024-12-16] MEDS: CYANOCOBALAMIN (B-12) 500 MCG TABLET PO SCH (08:27)
[2024-12-16] MEDS: ESCITALOPRAM OXALATE 20 MG TAB PO SCH (08:27)
[2024-12-16] MEDS: CALCITRIOL 0.25 MCG CAPSULE PO SCH (08:28)
[2024-12-16] MEDS: NALTREXONE HCL 50 MG TAB PO SCH (08:29)
[2024-12-16] MEDS: TOPIRAMATE 50 MG TAB PO SCH (08:29)
[2024-12-16] MEDS: IPRATROPIUM BROMIDE NASAL SPRAY 0.06% 15ML NAE SCH (08:30)
[2024-12-16 09:37] LABS: Hematocrit (blood only) 38.9 % (37.0-47.0); Hemoglobin 12.8 g/dl (12.0-16.0); Immature Granulocytes # (auto) 0.01 K/uL (0.01-0.20); Immature Granulocytes % (auto) 0.2 %; Mean Corpuscular Hemoglobin 31.7 pg (25.0-34.0); Mean Corpuscular Volume 96.3 fL (80.0-100.0); Platelet Count 167 K/uL (130-400); RDW Standard Deviation 47.5 fL (36.4-46.3); Red Blood Count 4.04 M/uL (4.20-5.40); White Blood Count 4.60 K/ul (4.8-10.8)
[2024-12-16] MEDS ORDERED: STROKE PATIENT DISCHARGE STA (10:55)
--- NOTE | 2024-12-16 12:57 | Discharge Summary ---
Discharge Summary Date of Service December 16, 2024 Principal Dx & Hospital Course #1 = Principal Diagnosis (1) Right sided weakness: (2) Cerebral vasospasm: (3) Adverse drug effect: (4) Focal epilepsy with impairment of consciousness: (5) CKD stage 3 due to type 2 diabetes mellitus: Plan 74 years old female with PMH of FULL CODE @ home, obesity with BMI 33.2 (height 160.0 cm; weight 85.0 kg), allergic rhinitis on cetirizine 10mg PO daily, remote history of acute PE now on warfarin 5mg PO daily at home, chronic diastolic CHF with preserved LVEF 60-65% and grade I LV diastolic dysfunction ( as noted on 10/30/2023, 7:24am TTE, CARDS Dr. Elier Mckeon), CKD stage III with baseline creatinine range, 1.22 - 1.36 (10/28/2020 - 09/29/2024), secondary hyperparathyroidism (due to CKD stage III) on vitamin D/calcitriol 0.25ug PO 3 times/week, with PTH normalizing at 88.7 pg/mL (05/05/2024, 12:17pm; cf., normal PTH range, 12-88 pg/mL) w/vitamin D replacement utilizing calcitriol 0.25ug PO 3 times/week, hypothyroidism on synthroid 50ug PO qam, non-insulin dependent DM2 with HbA1c 5.8% (12/16/2024, 5:56am) on dapagliflozin 10mg PO qam and tirzepatide 7.5mg SQ daily, cerebral vasospasm causing chronic migraine headache, on verapamil 40mg PO qpm and propanolol 40mg PO bid at home, sensi-neural hearing loss bilaterally, vertebrobasilar insufficiency, diabetic peripheral neuropathy on gabapentin 800mg PO tid at home, neurogenic bladder s/p bladder stimulator in situ (NOT MRI compatible), mild cognitive impairment/memory loss, word finding difficulty, and frequently misplacing things at her home, now on donepezil 5mg PO qhs at home, focal epilepsy with impairment of consciousness on lamotrigine 150mg PO qhs and topiramate 50mg PO bid at home, tardive dyskinesia, postlaminectomy syndrome with chronic flexed posture and ataxic gait which compels patient to utilize a cane at home 24 hours a day, major depression on bupropion 450mg PO qam and escitalopram 20mg PO qam at home, and bipolar disorder (type I) on clozapine 50mg PO qhs at home, who started taking Rexulti (brexpiprazole) 0.5mg PO daily (12/12/2024), as prescribed by her Psychiatrist Dr. Zack Helm, to treat her bipolar disorder (type I). Patient subsequently reported the acute onset of right upper and lower extremity weakness, that began shortly after starting Rexulti (brexpiprazole) 0.5mg PO daily (12/12/2024), and became acutely worse earlier in the day (12/15/2024). Patient was subsequently admitted to the inpatient hospitalist service @ [facility] on 12/16/2024 with the following diagnoses: 1. Adverse side effects (e.g, RUE/RLE weakness) due to Rexulti (brexpiprazole) 0.5mg PO daily (start date 12/12/2024). 2. Acute kidney injury with admission creatinine 1.46 mg/dL (12/15/2024, 7:21pm). To address #1, patient underwent: Portable CXR (12/15/2024, 6:52pm): No infiltrate, effusion, cardiomegaly, pulmonary vascular congestion, or pneumothorax (by my review). CT brain without contrast #1 (12/15/2024, 5:52pm): No acute bleed, mass, or midline shift. CTA brain (12/15/2024, 5:52pm): No large vessel occlusion. As before, bilateral salesperson hosiery demonstrate morphologic irregularity with mild narrowing. Vasospasm may be again present. CTA neck (12/15/2024, 5:52pm): No large vessel occlusion. As before, bilateral salesperson hosiery demonstrate morphologic irregularity with mild narrowing. Vasospasm may be again present. CT brain without contrast #2 (12/16/2024, 8:00am): No acute bleed, mass, or midline shift. Of note, MRI brain was not performed because of patient's MRI-incompatible bladder stimulator in situ. Patient subsequently underwent PT/OT Service evaluations in the 12/16/2024 am, and was cleared for D/C back to her home on 12/16/2024. Patient subsequently was advised to stop taking her Rexulti (brexpiprazole) 0.5mg PO daily (start d ate 12/12/2024) immediately/permanently and to see her Psychiatrist Dr. Zack Helm within 5-7 days of hospital discharge to discuss alternative treatment(s) for her chronic bipolar disorder (type I). Patient reports that she will comply with this recommendation. To address #2, patient received 500 mL of 0.9% NS @ 999 mL/hr (12/15/2024, 7:48pm) in [facility] ER, followed by 1 liter of 0.9% NS @ 80 mL/hr (12/15/2024, 10:04pm) in [facility] PCU bed #S235-1. Subsequently, acute kidney injury RESOLVED with post-hydration creatinine 1.31 mg/dL (12/16/2024, 5:56am). cf., CKD stage III with baseline creatinine range, 1.22 - 1.36 (10/28/2020 - 09/29/2024). Of note, U/A with microscopy (12/15/2024) was negative for LE and nitrites; hence, patient does not have acute UTI, which is a common cause for acute kidney injury. Etiology of acute kidney injury was most likely due to acute dehydration from decreased oral intake of water at home. Etiology of CKD stage III with baseline creatinine range, 1.22 - 1.36 (10/28/2020 - 09/29/2024) is most likely due to patient's underlying HTN and non-insulin dependent DM2 with HbA1c 5.8% (12/16/2024, 5:56am) on dapagliflozin 10mg PO qam and tirzepatide 7.5mg SQ daily. Of final note, patient takes warfarin 5mg PO daily at home for remote history of acute PE. cf., INR 2.6 (12/15/2024, 7:21pm). cf., INR 2.6 (12/16/2024, 5:56pm). Hence, patient will continue with warfarin 5mg PO daily on hospital discharge home on 12/16/2024 and will undergo weekly or bimonthly INR testing in order to confirm maintenance of therapeutic INR range of 2.0 to 3.0. Admission HPI Per Admitting Provider The patient is a 74-year-old female with a past medical history including cer ebral vasospasm, SNHL bilaterally, vertebrobasilar insufficiency, diabetic peripheral neuropathy, mild cognitive impairment, idiopathic peripheral neuropathy, focal epilepsy with impairment of consciousness, tardive dyskinesia, CKD stage III, postlaminectomy syndrome, bipolar disorder, memory loss, and imbalance. The patient presents to the emergency department with right upper and lower extremity weakness, that began shortly after starting Rexulti 4 evenings ago, and became acutely worse earlier in the day today. Workup in the emergency department included negative CT scan of head. CTA head and neck showed no change in mild narrowing of bilateral salesperson hosiery. Discharge Exam Constitutional General: Comfortable, coherent, and cooperative. Not confused, obtunded, or lethargic. Patient speaks with regular edward, and in complete, fluent, and articulate 7-9 word sentences without pause, interruption, cough, or wheeze with O2 sat 96% on room air (12/16/2024, 1:00pm). HEENT: Normocephalic, atraumatic. No nystagmus, gaze paresis, anisocoria, miosis, mydriasis, hyphema, scleral injection, conjunctivitis, or pterygium. No otorrhea or rhinorrhea. No pharyngeal erythema, edema, or discharge. Neck: Supple, no stridor, bruit, goiter, or hepato-jugular reflux. Jugular venous pressure is estimated to be 3 cm above the sternal angle of Rober, which in turn, is 5 cm above the level of the right atrium; with jugular venous pressure estimated to be 8 cm, then, there is no jugular venous distention on 12/16/2024. Lymphatics: No cervical (anterior/posterior), supraclavicular, infraclavicular, axillary, epitrochlear, or inguinal adenopathy. Chest: Symmetric rise and fall with respirations. Non-tender to palpation. Lungs: Clear to auscultation and percussion. Heart: Regular rate and rhythm. S1 and S2 noted. No S3 or S4 summation gallop. No tripartite friction rub. Grade II/ early systolic murmur @ LLSB without radiation to the carotids, axilla, or back, and which remains invariant in regards to the respiratory cycle. Abdomen: Soft, non-tender, non-distended. No rebound, guarding, Plummer's sign, or organomegaly. Bowel sounds auscultated in all 4 quadrants. Extremities: No clubbing, cyanosis, or edema. Skin: No decubitus ulcer or enanthem or exanthem. Neuro: Awake and oriented in regards to person, place, time, and situation. DTR+. 5/5 motor strength in all 4 extremities, both proximally and distally. No myoclonus or tics or tremors. Genito-urinary: No urethral discharge. No [place] catheter. Discharge Plan Discharge Items Patient Disposition: Home - Self-Care Reason For Visit: CVA, RIGHT SIDED WEAKNESS Discharge Diagnosis: Cerebral vasospasm caused by 4 days of Rexulti (brexpiprazole) treatment for major depression Condition on Discharge: Fair Activity: Resume your previous activity Lifting: Gradually increase as tolerated Bathing: No limitations Exercise/Sports: As tolerated Driving/Machine Use: No limitations Weightbearing: Full weightbearing Non-emergency contact: Primary Care Provider Call non-emergency contact if: you have any medication questions Follow-up/Referrals: Darcy Jasso DO [Primary Care Provider] - 12/30/24 3:00 pm (Primary care hospital follow up scheduled on 12/30/24 at 3:00 with Marian Faye) Diet: Heart Healthy Addtl Attending Provider Instructions: 1. See your PCP Dr. Darcy Jasso within 5-7 days of hospital discharge for routine follow up care. 2. See your Psychiatrist Dr. Zack Helm within 5-7 days of hospital discharge to discuss alternative treatments for your major depression as you can no longer take Rexulti (brexpiprazole) as it causes cerebral vasospasms. Pending Studies at Discharge: No Stand-Alone Forms: My Catglobe, Smoking Cessation Medications and DC Order Prescriptions: [facility] See Rx Instructions .Route Qty: 1 0RF Rx Instructions: As directed Continued bupropion HCl [Wellbutrin XL] 150 mg tablet extended release 24 hr 150 mg PO QAM Rx Instructions: TOTAL DOSE 450 MG--TAKES WITH 300 MG TAB. cholecalciferol (vitamin D3) 25 mcg (1,000 unit) capsule 2,000 unit PO HS clozapine 50 mg tablet 50 mg PO HS lamotrigine [Lamictal] 150 mg tablet 150 mg PO HS propranolol 40 mg tablet 40 mg PO BID escitalopram oxalate 20 mg tablet 20 mg PO QAM warfarin 5 mg tablet See Rx Instructions PO UD Rx Instructions: 7.5 mg every Saturday and Saturday; 10mg the other 5 days per [facility] orally use as directed; gabapentin 800 mg tablet 800 mg PO TID ipratropium bromide 42 mcg (0.06 %) spray,non-aerosol 2 spray intranasal BID (DME) lancets [TRUEplus Lancets] 33 gauge misc See Rx Instructions .Route Qty: 300 3RF Rx Instructions: test 3 times daily (DME) lancets [TRUEplus Lancets] 33 gauge misc See Rx Instructions .Route Qty: 300 2RF Rx Instructions: use to test blood sugar TID cetirizine 10 mg tablet 10 mg PO DAILY Qty: 30 6RF dapagliflozin propanediol [Farxiga] 10 mg tablet 10 mg PO QAM Qty: 90 3RF (DME) OneTouch Verio test strips Strip See Rx Instructions miscellaneous .MEDSUPPLY Qty: 200 3RF Rx Instructions: Check 2x a day levothyroxine 50 mcg tablet 50 mcg PO QAM 90 Days Qty: 90 1RF verapamil 40 mg tablet 40 mg PO QPM Qty: 30 2RF rosuvastatin 20 mg tablet 20 mg PO HS Qty: 90 3RF Rx Instructions: 20 mg orally Daily in PM; naltrexone 50 mg tablet 100 mg PO QAM (DME) blood-glucose meter [OneTouch Verio Flex meter] Misc See Rx Instructions .ROUTE .MEDSUPPLY Qty: 1 0RF Rx Instructions: As directed (DME) lancets [OneTouch Delica Plus Lancet] 30 gauge misc See Rx Instructions miscellaneous .MEDSUPPLY Qty: 200 3RF Rx Instructions: Check 2x a day with new lancet mupirocin 2 % ointment See Rx Instructions .ROUTE .COMPLEX PRN (Reason: as directed) Dose Instruction: APPLY TOPICALLY 3 TIMES A DAY Rx Instructions: APPLY TOPICALLY 3 TIMES A DAY PRN; donepezil 5 mg tablet 5 mg PO HS Qty: 30 5RF albuterol sulfate 90 mcg/actuation HFA aerosol inhaler 2 puff inhalation Q4H PRN (Reason: shortness of breath) Qty: 1 3RF topiramate [Topamax] 50 mg tablet 50 mg PO BID Qty: 180 1RF tirzepatide 7.5 mg/0.5 mL pen injector 7.5 mg SUBCUT Q7D Qty: 2 2RF bupropion HCl [Wellbutrin XL] 300 mg tablet extended release 24 hr 300 mg PO QAM Rx Instructions: TOTAL DOSE 450 MG--TAKES WITH 150 MG TAB. cyanocobalamin (vitamin B-12) [Vitamin B-12] 1,000 mcg Tablet 1,000 mcg PO QAM calcitriol 0.25 mcg capsule 0.25 mcg PO 3XWK Rx Instructions: take every saturday,saturday,saturday cranberry fruit 400 mg Tablet 400 mg PO QPM Rx Instructions: administer with a meal Discontinued Rexulti 1 mg tablet 1 mg PO DAILY Rx Instructions: To start on 12/19 Discharge Orders: Discharge Order (Routine); Ordered 12/16/24 Ordered By: Armond Hall Discharge Order- CHF (Routine); Ordered 12/16/24 Ordered By: Armond Aguilar/Other Patient Handouts: Hypoglycemia (Low Blood Sugar), Managing Type 2 Diabetes Admission Data Admit Date/Time: 12/15/24 21:52 Attending Provider: Armond Hall Admit Provider: Chai Lees Primary Care Provider: Darcy Jasso Other Providers: Chai Lees; Isaac Martinez Hospital Stay Data Consultations 12/15/24 21:23 ED Decision to Admit Stat 12/15/24 22:44 Consult Neurology Routine Diagnostic Imagining Performed 12/15/24 18:52 CT angio head w con Stat CT angio neck with con Stat CT head/brain wo con Stat 12/16/24 08:00 CT head/brain wo con Routine Pending Results Patient Have Any Pending Studies at Discharge: No Discharge Instructions Given to Patient (Per Discharging Provider) 1. See your PCP Dr. Darcy Jasso within 5-7 days of hospital discharge for routine follow up care. 2. See your Psychiatrist Dr. Zack Helm within 5-7 days of hospital discharge to discuss alternative treatments for your major depression as you can no longer take Rexulti (brexpiprazole) as it causes cerebral vasospasms. Total Time Total Time Spent Total Time Spent (In Minutes): 35 minutes. Of this time period, 19 minutes were spent in coordinating patient's discharge. Coding Level of Care Code 73047 INP/OBS DISCH >30 MIN Diagnoses Right sided weakness R53.1 Cerebral vasospasm I67.848 Adverse drug effect T50.905A Focal epilepsy with impairment of consciousness G40.209 CKD stage 3 due to type 2 diabetes mellitus E11.22; N18.30
--- NOTE | 2024-12-16 13:00 | Electrocardiogram Report ---
Test Reason : Blood Pressure : */* mmHG Vent. Rate : 74 BPM Atrial Rate : 74 BPM P-R Int : 192 ms QRS Dur : 102 ms QT Int : 428 ms P-R-T Axes : 41 -23 46 degrees QTcB Int : 475 ms Normal sinus rhythm Low voltage QRS Poor R wave progression, consider anterior VA vs. lead placement vs. LVH Abnormal ECG When compared with ECG of 29-Oct-2023 17:31, No significant change was found Confirmed by Louie Kirby ([id number]) on 12/16/2024 12:59:56 PM Referred By: REFERRED SELF Confirmed By: Louie Kirby
--- NOTE | 2024-12-16 14:03 | Neurology Consultation ---
Date of Consultation December 16, 2024 History of Present Illness Attending Physician: Armond Hall MD, PhD History of Present Illness Patient discharged before seen Allergies Allergy/AdvReac Type Severity Reaction Status Date / Time amoxicillin [From Augmentin] Allergy Severe Rash Verified 12/09/24 10:43 clavulanic acid Allergy Severe Rash Verified 12/09/24 10:43 [From Augmentin] metoclopramide Allergy Severe facial Verified 12/09/24 10:43 swelling and blisters doxycycline Allergy Intermediate ? Verified 12/09/24 10:43 tetracycline, doxy caused itching (rechallenge 02/2017) fluticasone Allergy Intermediate BURNED Verified 12/09/24 10:43 NASAL PASSAGES Penicillins Allergy Intermediate Rash, hand Verified 12/09/24 10:43 swelling/redness tetracycline Allergy Intermediate ?--long Verified 12/09/24 10:43 time ago, doxy caused itching (rechallenge 02/2017) tolterodine Allergy Intermediate HIVES Verified 12/09/24 10:43 triamcinolone [From Kenalog] Allergy Intermediate Rash Verified 12/09/24 10:43 Tetracyclines Allergy Unknown Unknown Verified 12/09/24 10:43 Home Medications Medication Instructions Recorded Confirmed Type bupropion HCl 150 mg 24 hr tablet, 150 mg PO QAM 03/06/18 12/15/24 History extended release (Wellbutrin XL) bupropion HCl 300 mg 24 hr tablet, 300 mg PO QAM 08/20/18 12/15/24 History extended release (Wellbutrin XL) propranolol 40 mg tablet 40 mg PO BID 06/25/19 12/15/24 History lamotrigine 150 mg tablet 150 mg PO HS 09/28/19 12/15/24 History (Lamictal) cholecalciferol (vitamin D3) 25 2,000 unit PO HS 05/09/20 12/15/24 History mcg (1,000 unit) capsule TRUEplus Lancets 33 gauge (lancets) #300 ea 06/27/21 12/15/24 Rx lancets 33 gauge (TRUEplus Lancets) #300 ea 02/22/23 12/15/24 Rx blood-glucose meter (OneTouch #1 ea 06/06/23 12/15/24 Rx Verio Flex Meter) lancets 30 gauge (OneTouch Delica #200 ea 06/06/23 12/15/24 Rx Plus Lancet) naltrexone 50 mg tablet 100 mg PO QAM 08/23/23 12/15/24 History cyanocobalamin (vitamin B-12) 1,000 mcg PO QAM 10/02/23 12/15/24 History 1,000 mcg tablet (Vitamin B-12) cetirizine 10 mg tablet 10 mg PO DAILY #30 tabs 01/01/24 12/15/24 Rx dapagliflozin propanediol 10 mg 10 mg PO QAM #90 tabs 04/21/24 12/15/24 Rx tablet (Farxiga) escitalopram oxalate 20 mg tablet 20 mg PO QAM 05/28/24 12/15/24 History blood sugar diagnostic (OneTouch #200 ea 06/29/24 12/15/24 Rx Verio test strips) levothyroxine 50 mcg tablet 50 mcg PO QAM 90 days #90 tabs 08/24/24 12/15/24 Rx albuterol sulfate 90 mcg/actuation 2 puff inhalation Q4H PRN 09/01/24 12/15/24 Rx aerosol inhaler shortness of breath #1 inhaler warfarin 5 mg tablet See Rx Instructions PO UD 09/22/24 12/15/24 History donepezil 5 mg tablet 5 mg PO HS #30 tabs 10/15/24 12/15/24 Rx mupirocin 2 % topical ointment See Rx Instructions .Route 10/15/24 12/15/24 History .COMPLEX PRN as directed verapamil 40 mg tablet 40 mg PO QPM #30 tabs 11/09/24 12/15/24 Rx tirzepatide 7.5 mg/0.5 mL 7.5 mg (0.5 mL) subcut Q7D #2 mL 11/12/24 12/15/24 Rx subcutaneous pen injector topiramate 50 mg tablet (Topamax) 50 mg PO BID #180 tabs 11/12/24 12/15/24 Rx clozapine 50 mg tablet 50 mg PO HS 11/16/24 12/15/24 History rosuvastatin 20 mg tablet 20 mg PO HS #90 tabs 12/03/24 12/15/24 Rx gabapentin 800 mg tablet 800 mg PO TID 12/09/24 12/15/24 History ipratropium bromide 42 mcg (0.06 2 spray intranasal BID 12/09/24 12/15/24 History %) nasal spray calcitriol 0.25 mcg capsule 0.25 mcg PO 3XWK 12/15/24 12/15/24 History cranberry fruit 400 mg tablet 400 mg PO QPM 12/15/24 12/15/24 History walker #1 ea 12/16/24 Rx Patient History Medical History History of urinary incontinence reason for the sacral neuromodulator Hearing loss left ear Hx of recurrent urinary tract infection no recent issues 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 Tardive dyskinesia Post laminectomy syndrome Hypertension Falls frequently last fall August 2023 - pt to have an MRI of head since last fall she has been having headaches. follows with Dr Martinez. H/O idiopathic seizure pt unaware Tremor benign bilateral hands Gait disturbance Osteoporosis History of kidney stones Depression Anxiety CKD stage 3 due to type 2 diabetes mellitus follows with Dr[address] Gracia Hyperlipidemia Difficulty swallowing Diabetes mellitus, type 2 NIDDM Pulmonary embolism on right (05/29/13) ~2012, reason for Warfarin. unknown cause. Surgical History S/P placement of nerve stimulator 06/2023 sacral neuromodulator History of cataract surgery bilateral Hx of surgical procedure bone stimulator > lumbar > 2006 - no longer active sacral neuromodulator trial 06/10/23, first and second stages completed 06/2023 with lead revision in August 2023 History of lumbar surgery x2 fusion unsure of level History of dilatation and curettage History of lithotripsy History of esophagogastroduodenoscopy (EGD) History of colonoscopy with polypectomy History of cholecystectomy Hx of right inguinal hernia repair History of tooth extraction History of tonsillectomy Hx of cervical spine surgery Laminectomy (no hardware) but states ROM limited all directions History of cardiac cath [facility] > s > no stents History of left mastoidectomy Family History Father , of an [place] at uncertain age. Myocardial infarction Mother , age 85 of pulmonary issues. Lung disease Other FHx: heart disease Family history of diabetes mellitus No family history of adverse response to anesthesia Denies family history of Ovarian cancer Prostate cancer Breast cancer Colorectal cancer Social History Smoking Status: Never smoker Tobacco Type: Cigarettes Age Started Using Tobacco: 15; Age Quit Using Tobacco: 27; packs per day: 0.50; Second Hand Exposure: No; Do You Dip or Chew Tobacco: No; Hx Alcohol Use: No Hx Substance Use: No Preferred Language: Angolan Communication Ability: Effective Visual Impairment: No Limitations Hearing Ability: Hard of Hearing Adjunct Business Instructor Required: No Beliefs That Will Affect Care: None marital status: Current Living Situation: Family Current Living Situation Comment: lives with Lin [place] current occupational status: retired current occupation: Former [employer], 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 41 Feels Safe at Home: Yes Childhood Exposure to Second-Hand Smoke: Yes Seatbelt Use: always Sunscreen Use: No Assistive Devices: Cane Results & Data Vital Signs (Past 12 Hours) Vital Signs Temp Pulse Resp BP Pulse Ox O2 Del Method 12/16/24 13:00 36.3 C L 76 20 121/63 96 12/16/24 07:11 36.3 C L 76 20 121/63 96 Room Air 12/16/24 02:44 36.5 C 74 18 108/63 94 Room Air PG Care Time/CCT Total # of Minutes Spent Total Time Spent with Patient: Total time spent is greater than 50% in coordination of care (as documented) at patient's floor/unit and/or counseling patient: Coding Level of Care Code None
[2024-12-16] MEDS ORDERED: WARFARIN SOD 10 MG TAB PO SCH (16:00)
[2024-12-16] MEDS ORDERED: DONEPEZIL HCL 5 MG TAB PO SCH (21:00)
[2024-12-16] MEDS ORDERED: ROSUVASTATIN CALCIUM 20 MG TAB PO SCH (21:00)
[2024-12-16] MEDS ORDERED: VERAPAMIL HCL 40 MG TAB PO SCH (21:00)
[2024-12-16] MEDS ORDERED: CHOLECALCIFEROL 25 MCG (1000 UNITS) TAB PO SCH (21:00)
[2024-12-16] MEDS ORDERED: CRANBERRY FRUIT 400 MG PO SCH (21:00)
== END 2024-12-16 13:04 | disposition home or self-care (01) | DRG 69 ==
LOC: ED 18:58 → INTOOBSV 21:52 → SUATTDRO 21:52 → 2S 21:52

== ENCOUNTER 2025-02-03 02:26 | Observation (INO) ==
--- NOTE | 2025-02-03 02:51 | Emergency Department Note ---
Impression & Plan Supratherapeutic INR, Subgaleal hemorrhage, Fall, NATALIE (acute kidney injury) admit to the [facility] ED Provider Note NAME: BLANK ASHBY AGE: 74 SEX: Female INFORMANT: Patient ED PROVIDER(S): Edda Rader DO CHIEF COMPLAINT: Fall PLAN: Disposition: admit to the [facility] MEDICAL DECISION MAKING: This is a 74-year-old female patient with a history of frequent falls who presents to the emergency department after suffering a fall tonight while walking from the bedroom to the kitchen. She states that she lost her balance, slipped and fell striking the left side of her head on the wall. The patient does take Coumadin for history of PE. patient describes having frequent falls as a result of her tardive dyskinesia. Laboratory studies reveal an INR of 4. H&H were normal. There was no leukocytosis. Renal function reveals some evidence of NATALIE with a BUN of 36 and creatinine of 1.78. Patient's symptoms of feeling christianson/markedly vision upon standing associated with some lightheadedness. Chest x-ray was unremarkable. CT scan of the cervical spine was negative. CT scan of the head revealed a subgaleal hemorrhage. An Eduardo wrap was placed around the scalp to cause tamponade. [facility] for [facility] care and administer oral vitamin K. Care/management discussed with: green house manager and [facility] Triage Nursing notes: reviewed and agree With them. Vital Signs: reviewed and unremarkable Chronic Medical/Social Conditions affecting care: tardive dyskinesia; anticoagulation use; frequent falls Differential Diagnosis: closed head injury, skull fracture, intracranial trauma, C-spine injury, dehydration Diagnostics, independently interpreted by me: ECG: normal sinus rhythm at a rate of 82 with a first-degree AV block. There is no ST segment elevation or signs of ischemia. There is no ectopy. Cardiac Monitoring: Normal sinus rhythm at 83 Imaging studies: portable chest x-ray: no acute pulmonary infiltrates or consolidation or signs of trauma. CT scan of the brain: As per Imbro CT scan of the cervical spine: As per Imbro HPI: 74 year old Female arrives for evaluation of Fall. patient describes that she was going from her bedroom to the kitchen to get a drink of water when she felt unsteady on her feet and fell striking the left side of her head on the wall. She did not lose consciousness. patient describes frequent falls as a result of her tardive dyskinesia. Patient does take Coumadin for history of pulmonary embolus. PAST MEDICAL HISTORY: See Below, PAST SURGICAL HISTORY: See Below, SOCIAL HISTORY: See Below, HOME MEDICATIONS: See list ALLERGIES: see long list VITALS: See Below PHYSICAL EXAMINATION: Primary Survey Airway: Intact Breathing: Normal, breath sounds equal bilaterally Circulation: Skin warm, distal pulses 2+, capillary refill less than 2 seconds Disability Pupils: Equal and reactive to light, 4mm, brisk GCS: 15, E = 6 V=5 M= 4 Motor Function: Moves all extremities. Sensory: No deficits Secondary Survey GEN: Well developed and well-nourished HEAD: Normal with a an occipital cephalohematoma. EYES: Pupils round reactive to light, conjunctiva clear, extraocular movements intact, no raccoons eyes ENT: No fluid in external acoustic canals, no hemotympanum, no bloom's sign, nares patent, oropharynx clear NECK: No JVD, midline trachea, no cervical spine tenderness HEART: Regular rate and rhythm LUNGS: Clear to auscultation bilaterally. CHEST: Chest wall non-tender, no bruising/deformity ABD: No Ferreira-Romero's or Calin's sign, soft, non-tender, no rebound or guarding, PELVIS: Stable to rock BACK: No step offs or deformities, T-L spine non tender : No perineal hematoma, no blood at the meatus EXT: Patient has multiple contusions in different stages of healing about her knees and lower extremities. She has an abrasion noted over the left knee. NEURO: CNII-XII grossly intact, no sensory deficits Emergency department treatment: surveillance system monitor, IV normal saline bolus emergency department course: The patient was an injury alert .The patient was evaluated in room A-3. A complete history and physical was performed. An IV lock was initiated and labs were drawn as above. The the patient had a portable chest x-ray performed and went for CT scan of the brain and cervical spine. Laboratory studies revealed some evidence of NATALIE consistent with possible dehydration. She was bolused with IV normal saline solution. Patient cephalohematoma seem to have enlarged after her trip to radiology. An Eduardo wrap was applied to the scalp. I discussed the case with the [facility] hospitalist and they will evaluate for further inpatient care. Past Med/Surg History Problem List (Updated 02/03/25 @ 06:19 by Nathanael العلي MD) Subgaleal hemorrhage Myofascial neck pain On warfarin therapy (Acute) Acute right-sided weakness (Acute) Cervical radiculopathy Headache Sensorineural hearing loss (SNHL) of both ears VBI (vertebrobasilar insufficiency) Urinary incontinence Diabetic peripheral neuropathy Mild cognitive impairment Trochanteric bursitis of right hip Left knee DJD Other abnormalities of gait and mobility Muscle weakness Idiopathic peripheral neuropathy Leukopenia (Acute) Thickened nails Diabetic foot Right knee DJD Degenerative joint disease of right hip Benign essential hypertension Tardive dyskinesia History of colon polyps Morbid obesity Metabolic syndrome Multiple drug allergies Calculus of kidney Tremor Dysphagia Sensorineural hearing loss (SNHL) of left ear with restricted hearing of right ear Secondary hyperparathyroidism pt unaware H/O idiopathic seizure Diabetic peripheral neuropathy associated with type 2 diabetes mellitus Dyslipidemia Post laminectomy syndrome (Acute) Anxiety and depression Phillips's palsy (Acute) hx of Diabetes mellitus, type II (Chronic) Non-proliferative diabetic retinopathy Sacral neurostimulator in situ Chronic back pain Neuropathy bilateral feet and bilateral fingertips. 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 History of urinary incontinence Hearing loss Hx of recurrent urinary tract infection Hx of Phillips's palsy (1974) Stage II pressure ulcer of buttock Tardive dyskinesia Post laminectomy syndrome Hypertension Falls frequently H/O idiopathic seizure Tremor Gait disturbance Osteoporosis History of kidney stones Depression Anxiety CKD stage 3 due to type 2 diabetes mellitus Hyperlipidemia Difficulty swallowing Diabetes mellitus, type 2 Pulmonary embolism on right (05/29/13) Surgical History S/P placement of nerve stimulator History of cataract surgery Hx of surgical procedure History of lumbar surgery History of dilatation and curettage History of lithotripsy History of esophagogastroduodenoscopy (EGD) History of colonoscopy History of cholecystectomy Hx of right inguinal hernia repair History of tooth extraction History of tonsillectomy Hx of cervical spine surgery History of cardiac cath History of left mastoidectomy Family History Father Myocardial infarction Mother Lung disease Other FHx: heart disease Family history of diabetes mellitus No family history of adverse response to anesthesia Denies family history of Ovarian cancer Prostate cancer Breast cancer Colorectal cancer Social History Smoking Status: Former smoker Tobacco Type: Cigarettes Age Started Using Tobacco: 15; Age Quit Using Tobacco: 27; packs per day: 0.50; Second Hand Exposure: No; Do You Dip or Chew Tobacco: No; Hx Alcohol Use: No Hx Substance Use: No Preferred Language: Romansh Communication Ability: Effective Visual Impairment: No Limitations Hearing Ability: Hard of Hearing Sole Seamer Required: No Beliefs That Will Affect Care: None marital status: Current Living Situation: Family Current Living Situation Comment: lives with Lin cool current occupational status: retired current occupation: Former [employer], 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 41 Feels Safe at Home: Yes Childhood Exposure to Second-Hand Smoke: Yes Seatbelt Use: always Sunscreen Use: No Assistive Devices: Cane Allergies Allergies Allergy/AdvReac Type Severity Reaction Status Date / Time amoxicillin [From Augmentin] Allergy Severe Rash Verified 01/18/25 14:43 clavulanic acid Allergy Severe Rash Verified 01/18/25 14:43 [From Augmentin] metoclopramide Allergy Severe facial Verified 01/18/25 14:43 swelling and blisters doxycycline Allergy Intermediate ? Verified 01/18/25 14:43 tetracycline, doxy caused itching (rechallenge 02/2017) fluticasone Allergy Intermediate BURNED Verified 01/18/25 14:43 NASAL PASSAGES Penicillins Allergy Intermediate Rash, hand Verified 01/18/25 14:43 swelling/redness tetracycline Allergy Intermediate ?--long Verified 01/18/25 14:43 time ago, doxy caused itching (rechallenge 02/2017) tolterodine Allergy Intermediate HIVES Verified 01/18/25 14:43 triamcinolone [From Kenalog] Allergy Intermediate Rash Verified 01/18/25 14:43 Tetracyclines Allergy Unknown Unknown Verified 01/18/25 14:43 Home Meds Home Medications Medication Instructions Recorded Confirmed bupropion HCl 150 mg 24 hr tablet, 150 mg PO QAM 03/06/18 02/03/25 extended release (Wellbutrin XL) bupropion HCl 300 mg 24 hr tablet, 300 mg PO QAM 08/20/18 02/03/25 extended release (Wellbutrin XL) propranolol 40 mg tablet 40 mg PO BID 06/25/19 02/03/25 lamotrigine 150 mg tablet 150 mg PO HS 09/28/19 02/03/25 (Lamictal) cholecalciferol (vitamin D3) 25 2,000 unit PO HS 05/09/20 02/03/25 mcg (1,000 unit) capsule naltrexone 50 mg tablet 100 mg PO QAM 08/23/23 02/03/25 cyanocobalamin (vitamin B-12) 1,000 mcg PO QAM 10/02/23 02/03/25 1,000 mcg tablet (Vitamin B-12) escitalopram oxalate 20 mg tablet 20 mg PO QAM 05/28/24 02/03/25 warfarin 5 mg tablet See Rx Instructions PO UD 09/22/24 02/03/25 mupirocin 2 % topical ointment See Rx Instructions .Route 10/15/24 02/03/25 .COMPLEX PRN as directed clozapine 50 mg tablet 50 mg PO HS 11/16/24 02/03/25 gabapentin 800 mg tablet 800 mg PO TID 12/09/24 02/03/25 ipratropium bromide 42 mcg (0.06 2 spray intranasal BID 12/09/24 02/03/25 %) nasal spray calcitriol 0.25 mcg capsule 0.25 mcg PO 3XWK 12/15/24 02/03/25 cranberry fruit 400 mg tablet 400 mg PO QPM 12/15/24 02/03/25 Previous Rx's Medication Instructions Recorded TRUEplus Lancets 33 gauge (lancets) #300 ea 06/27/21 lancets 33 gauge (TRUEplus Lancets) #300 ea 02/22/23 blood-glucose meter (OneTouch #1 ea 06/06/23 Verio Flex Meter) lancets 30 gauge (OneTouch Delica #200 ea 06/06/23 Plus Lancet) cetirizine 10 mg tablet 10 mg PO DAILY #30 tabs 01/01/24 dapagliflozin propanediol 10 mg 10 mg PO QAM #90 tabs 04/21/24 tablet (Farxiga) blood sugar diagnostic (OneTouch #200 ea 06/29/24 Verio test strips) levothyroxine 50 mcg tablet 50 mcg PO QAM 90 days #90 tabs 08/24/24 albuterol sulfate 90 mcg/actuation 2 puff inhalation Q4H PRN 09/01/24 aerosol inhaler shortness of breath #1 inhaler donepezil 5 mg tablet 5 mg PO HS #30 tabs 10/15/24 verapamil 40 mg tablet 40 mg PO QPM #30 tabs 11/09/24 topiramate 50 mg tablet (Topamax) 50 mg PO BID #180 tabs 11/12/24 rosuvastatin 20 mg tablet 20 mg PO HS #90 tabs 12/03/24 walker #1 ea 12/16/24 tirzepatide 7.5 mg/0.5 mL 7.5 mg (0.5 mL) subcut Q7D #2 mL 02/02/25 subcutaneous pen injector Results & Data (ED) Vital Signs Vital Signs - 24 hr 02/03/25 02:22 02/03/25 02:39 02/03/25 02:48 Temperature 37.1 C 37.1 C Temperature Source Oral Oral Pulse Rate 83 Pulse Rate [Apical] 83 Pulse Rhythm Regular Pulse Rhythm [Apical] Regular Pulse Strength Normal Pulse Strength [Apical] Normal Respiratory Rate 18 18 Respiratory Effort / Characteristics Non-Labored Non-Labored Respiratory Depth Normal Normal Respiratory Pattern Regular Regular Blood Pressure 112/97 Blood Pressure [Right Arm] 112/97 Blood Pressure Mean 102 Blood Pressure Mean [Right Arm] 102 Blood Pressure Position Sitting Blood Pressure Position [Right Arm] Sitting Pulse Oximetry 98 98 97 Oxygen Delivery Method Room Air Room Air Room Air Sepsis Recent Fever Within 48 Hours No Sepsis New/Unexplained Change in Mental Status No Sepsis Action Taken by Nursing No Action Required 02/03/25 03:22 02/03/25 04:00 Temperature Temperature Source Pulse Rate Pulse Rate [Apical] 80 80 Pulse Rhythm Pulse Rhythm [Apical] Regular Regular Pulse Strength Pulse Strength [Apical] Normal Normal Respiratory Rate 18 18 Respiratory Effort / Characteristics Non-Labored Non-Labored Respiratory Depth Normal Respiratory Pattern Regular Regular Blood Pressure Blood Pressure [Right Arm] 118/71 120/59 L Blood Pressure Mean Blood Pressure Mean [Right Arm] 86 79 Blood Pressure Position Blood Pressure Position [Right Arm] Sitting Sitting Pulse Oximetry 96 96 Oxygen Delivery Method Room Air Room Air Sepsis Recent Fever Within 48 Hours Sepsis New/Unexplained Change in Mental Status Sepsis Action Taken by Nursing Laboratory Data 02/03/25 02:48 02/03/25 02:48 Lab Results 02/03/25 Range/Units 02:48 WBC 4.64 L (4.8-10.8) K/ul RBC 4.19 L (4.20-5.40) M/uL Hgb 13.0 (12.0-16.0) g/dl Hct 40.1 (37.0-47.0) % MCV 95.7 (80.0-100.0) fL MCH 31.0 (25.0-34.0) pg MCHC 32.4 (32.0-36.0) g/dL RDW Std Deviation 46.3 (36.4-46.3) fL RDW Coeff of Jennifer 13.1 (11.5-14.5) % Plt Count 201 (130-400) K/uL MPV 8.7 L (9.4-12.4) fL Immature Gran % (Auto) 0.2 % Neut % (Auto) 58.7 % Lymph % (Auto) 28.9 % [place] % (Auto) 10.1 % Eos % (Auto) 1.9 % Baso % (Auto) 0.2 % Neut # (Auto) 2.72 (1.40-6.50) K/uL Lymph # (Auto) 1.34 (1.20-3.40) K/uL [place] # (Auto) 0.47 (0.11-0.59) K/uL Eos # (Auto) 0.09 (0.00-0.50) K/uL Baso # (Auto) 0.01 (0.00-0.20) K/uL Immature Gran # (Auto) 0.01 (0.01-0.20) K/uL PT 38.1 H (9.0-12.0) Seconds INR 4.0 H (0.9-1.1) APTT 45 H (21-31) Seconds PTT Ratio 1.7 Sodium 142 (136-145) mmol/L Potassium 4.2 (3.5-5.1) mmol/L Chloride 110 H (98-107) mmol/L Carbon Dioxide 25 (21-32) mmol/L Anion Gap 7 (3-11) BUN 36 H (6-23) mg/dl Creatinine 1.78 H (0.6-1.2) mg/dl Est Cr Clr Drug Dosing 30.4 ml/min eGFR 29.96 BUN/Creatinine Ratio 20.2 H (10-20) Glucose 74 (70-99(Fasting)) mg/dl Calcium 9.3 (8.6-10.3) mg/dl Total Bilirubin 0.3 (0.2-1.0) mg/dl AST 60 H (13-39) U/L ALT 87 H (7-52) U/L Alkaline Phosphatase 59 (34-104) U/L Total Protein 6.7 (6.0-8.3) gm/dl Albumin 3.7 (3.4-5.0) gm/dl Globulin 3.0 (2.5-4.0) gm/dl Albumin/Globulin Ratio 1.2 (0.9-2) Lipase 42 (11-82) U/L Administered Medications Discontinued Medications Sodium Chloride (Nss) 500 mls @ 999 mls/hr IV .Q31M ONE Stop: 02/03/25 04:12 Last Infusion: 02/03/25 04:43 Dose: Infused Documented By: Admin: 02/03/25 04:01 Dose: 999 mls/hr Documented By: [facility] Imaging Data Radiologist's Impression: Cervical Spine CT 02/03/25 02:48 EXAM: CT cervical spine wo con CLINICAL HISTORY: Trauma TECHNIQUE: Computed tomography of the cervical spine performed without intravenous contrast. Contiguous axial images were obtained from the skull base to T2, with sagittal and coronal reformatted images reconstructed from the axial data. CT scan was performed according to ALARA (as low as reasonable achievable). COMPARISON: August FINDINGS: The normal cervical lordotic curvature is lost. 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 Degenerative changes are noted in the visualized spine in the form of marginal osteophytes, endplate irregularities and sclerosis, reduction in the disc height, small posterior disc bulges, vacuum phenomenon and facet arthropathy changes. Posterior elements (lamina and spinous process) from C5-C7 not seen- likely post op changes. Cervical vertebral bodies are normal in height, with no evidence of fracture or subluxation. Lateral masses of C1 are symmetrical, and the dens is intact. Prevertebral soft tissues are not widened. The remaining suprahyoid and infrahyoid soft tissues in the neck are unremarkable. C2-C3: No disc bulge, mass effect on the cord or neuroforaminal narrowing. C3-C4: Disc bulge indenting ventral thecal sac, No mass effect on the cord. Uncovertebral hypertrophy causing right neuroforaminal narrowing. C4-C5: Posterior disc osteophyte complex indenting ventral thecal sac, No mass effect on the cord or neuroforaminal narrowing. C5-C6: Ossification of posterior longitudinal ligament compressing ventral thecal sac. No mass effect on the cord. C6-C7:Disc bulge indenting ventral thecal sac, No mass effect on the cord or neuroforaminal narrowing. C7-T1: Disc bulge indenting ventral thecal sac, No mass effect on the cord or neuroforaminal narrowing. Thyroid gland appears mildly heterogenous. IMPRESSION: 1.No acute fracture in the cervical spine 2. Cervical spondylosis - stable Electronically signed by Meek Diggs 02-03-2025 03:57 AM Chest X-Ray 02/03/25 02:48 EXAM: XR chest 1V portable CLINICAL HISTORY: Trauma TECHNIQUE: An X-ray image of the chest is obtained in AP projection. COMPARISON: CR on 12/15/2024. FINDINGS: Pulmonary Parenchyma: Lungs are clear bilaterally. No evidence of consolidation, collapse, or focal opacities. No pulmonary nodules are identified. No evidence of pleural effusion or pleural thickening. Heart and Mediastinum: Prominent aortic arch. Heart size and shape are normal. No mediastinal widening or masses. No hilar or mediastinal lymphadenopathy. Bony Thorax: Bony thorax appears intact without fractures or deformities. Soft Tissues: Soft tissues overlying the chest wall are unremarkable. Chest wall leads are noted. Bilateral mild acromioclavicular osteoarthritis. IMPRESSION: 1. No evidence of consolidation, collapse, or pleural effusion. 2. No acute cardiopulmonary abnormalities are identified. 3. No time interval changes. Electronically signed by Reymundo Henry 02-03-2025 04:[address] 02/03/25 02:48 EXAM: CT head/brain wo con CLINICAL HISTORY: Trauma. TECHNIQUE: Axial non-contrast CT scan of the brain was performed from the skull base to the high parietal region. One of the following dose reduction techniques were utilized for this exam: Automated exposure control, adjustment of the mA and/or kV according to patient size, use of iterative reconstruction. CTDI: 58.99 mGy , DLP: 991.63 mGy-cm. COMPARISON: 12/16/2024 CT. FINDINGS: Brain Parenchyma: Normal attenuation of the cerebral hemispheres, cerebellum, and brainstem. No evidence of acute infarct, hemorrhage, or mass effect. No abnormal areas of hypo- or hyperattenuation. Ventricular System: Ventricles are normal in size and configuration. No evidence of hydrocephalus or ventricular enlargement. Subarachnoid Spaces: Widening of cortical sulci and cisterns. No evidence of subarachnoid hemorrhage or extra-axial fluid collections. Cerebellum and Brainstem: No masses, lesions, or areas of abnormal density. Orbits: Normal appearance of the globes, optic nerves, and extraocular muscles. No evidence of orbital masses or abnormal density. Sinuses: Clear paranasal sinuses. No evidence of sinusitis or mucosal thickening. Mastoid Air Cells: Clear mastoid air cells. No evidence of mastoiditis. Skull: Normal skull morphology. No fractures seen. Occipital subgaleal hematoma IMPRESSION: 1. No evidence of acute infarct, hemorrhage, or mass effect. 2. Senile atrophic changes 3. Occipital subgaleal hematoma. New 4. No fractures seen. Electronically signed by Reymundo Henry 02-03-2025 04:15 AM Discharge Plan Visit Data Chief Complaint: Fall Stated Complaint: GLF on thinners ED Provider: Edda Rader Discharge Problem: Supratherapeutic INR, Subgaleal hemorrhage, Fall, NATALIE (acute kidney injury) Condition: Serious Forms Stand Alone Forms: My [employer] Prescriptions Prescriptions: No Action bupropion HCl [Wellbutrin XL] 150 mg tablet extended release 24 hr 150 mg PO QAM Rx Instructions: TOTAL DOSE 450 MG--TAKES WITH 300 MG TAB. cholecalciferol (vitamin D3) 25 mcg (1,000 unit) capsule 2,000 unit PO HS clozapine 50 mg tablet 50 mg PO HS lamotrigine [Lamictal] 150 mg tablet 150 mg PO HS propranolol 40 mg tablet 40 mg PO BID escitalopram oxalate 20 mg tablet 20 mg PO QAM warfarin 5 mg tablet See Rx Instructions PO UD Rx Instructions: 7.5 mg every Saturday and Saturday; 10mg the other 5 days per [facility] orally use as directed; gabapentin 800 mg tablet 800 mg PO TID ipratropium bromide 42 mcg (0.06 %) spray,non-aerosol 2 spray intranasal BID (DME) lancets [TRUEplus Lancets] 33 gauge misc See Rx Instructions .Route Qty: 300 3RF Rx Instructions: test 3 times daily (DME) lancets [TRUEplus Lancets] 33 gauge misc See Rx Instructions .Route Qty: 300 2RF Rx Instructions: use to test blood sugar TID cetirizine 10 mg tablet 10 mg PO DAILY Qty: 30 6RF dapagliflozin propanediol [Farxiga] 10 mg tablet 10 mg PO QAM Qty: 90 3RF (DME) OneTouch Verio test strips Strip See Rx Instructions miscellaneous .MEDSUPPLY Qty: 200 3RF Rx Instructions: Check 2x a day levothyroxine 50 mcg tablet 50 mcg PO QAM 90 Days Qty: 90 1RF verapamil 40 mg tablet 40 mg PO QPM Qty: 30 2RF rosuvastatin 20 mg tablet 20 mg PO HS Qty: 90 3RF Rx Instructions: 20 mg orally Daily in PM; naltrexone 50 mg tablet 100 mg PO QAM (DME) blood-glucose meter [OneTouch Verio Flex meter] Misc See Rx Instructions .ROUTE .MEDSUPPLY Qty: 1 0RF Rx Instructions: As directed (DME) lancets [OneTouch Delica Plus Lancet] 30 gauge misc See Rx Instructions miscellaneous .MEDSUPPLY Qty: 200 3RF Rx Instructions: Check 2x a day with new lancet mupirocin 2 % ointment See Rx Instructions .ROUTE .COMPLEX PRN (Reason: as directed) Dose Instruction: APPLY TOPICALLY 3 TIMES A DAY Rx Instructions: APPLY TOPICALLY 3 TIMES A DAY PRN; donepezil 5 mg tablet 5 mg PO HS Qty: 30 5RF tirzepatide 7.5 mg/0.5 mL pen injector 7.5 mg SUBCUT Q7D Qty: 2 2RF Rx Instructions: sundays albuterol sulfate 90 mcg/actuation HFA aerosol inhaler 2 puff inhalation Q4H PRN (Reason: shortness of breath) Qty: 1 3RF topiramate [Topamax] 50 mg tablet 50 mg PO BID Qty: 180 1RF bupropion HCl [Wellbutrin XL] 300 mg tablet extended release 24 hr 300 mg PO QAM Rx Instructions: TOTAL DOSE 450 MG--TAKES WITH 150 MG TAB. cyanocobalamin (vitamin B-12) [Vitamin B-12] 1,000 mcg Tablet 1,000 mcg PO QAM calcitriol 0.25 mcg capsule 0.25 mcg PO 3XWK Rx Instructions: take every saturday,saturday,saturday cranberry fruit 400 mg Tablet 400 mg PO QPM Rx Instructions: administer with a meal (DME) [facility] See Rx Instructions .Route Qty: 1 0RF Rx Instructions: As directed Referrals Referrals: Darcy Jasso DO [Primary Care Provider] -
[2025-02-03 03:00] LABS: Hematocrit (blood only) 40.1 % (37.0-47.0); Hemoglobin 13.0 g/dl (12.0-16.0); Immature Granulocytes # (auto) 0.01 K/uL (0.01-0.20); Immature Granulocytes % (auto) 0.2 %; Mean Corpuscular Hemoglobin 31.0 pg (25.0-34.0); Mean Corpuscular Volume 95.7 fL (80.0-100.0); Platelet Count 201 K/uL (130-400); RDW Standard Deviation 46.3 fL (36.4-46.3); Red Blood Count 4.19 M/uL (4.20-5.40); White Blood Count 4.64 K/ul (4.8-10.8)
[2025-02-03 03:16] LABS: Alanine Aminotransferase 87.0 U/L (7-52); Albumin Globulin Ratio 1.2 (0.9-2); Alkaline Phosphatase 59.0 U/L (34-104); Anion Gap 7.0 (3-11); Bilirubin,Total 0.3 mg/dl (0.2-1.0); Blood Urea Nitrogen 36.0 mg/dl (6-23); Calcium 9.3 mg/dl (8.6-10.3); Carbon Dioxide 25.0 mmol/L (21-32); Chloride 110.0 mmol/L (98-107); Creatinine Clr Calc Pharmacy 30.4 ml/min; Globulin 3.0 gm/dl (2.5-4.0); Glucose 74.0 mg/dl (70-99(Fasting)); Lipase 42.0 U/L (11-82); Potassium 4.2 mmol/L (3.5-5.1); Sodium 142.0 mmol/L (136-145); Total Protein 6.7 gm/dl (6.0-8.3)
[2025-02-03 03:32] LABS: INR 4.0 (0.9-1.1); Partial Thromboplastin Time 45 Seconds (21-31); Prothrombin Time 38.1 Seconds (9.0-12.0)
--- NOTE | 2025-02-03 03:58 | CT Scan Report ---
EXAM: CT cervical spine wo con CLINICAL HISTORY: Trauma TECHNIQUE: Computed tomography of the cervical spine performed without intravenous contrast. Contiguous axial images were obtained from the skull base to T2, with sagittal and coronal reformatted images reconstructed from the axial data. CT scan was performed according to ALARA (as low as reasonable achievable). COMPARISON: August FINDINGS: The normal cervical lordotic curvature is lost. 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 Degenerative changes are noted in the visualized spine in the form of marginal osteophytes, endplate irregularities and sclerosis, reduction in the disc height, small posterior disc bulges, vacuum phenomenon and facet arthropathy changes. Posterior elements (lamina and spinous process) from C5-C7 not seen- likely post op changes. Cervical vertebral bodies are normal in height, with no evidence of fracture or subluxation. Lateral masses of C1 are symmetrical, and the dens is intact. Prevertebral soft tissues are not widened. The remaining suprahyoid and infrahyoid soft tissues in the neck are unremarkable. C2-C3: No disc bulge, mass effect on the cord or neuroforaminal narrowing. C3-C4: Disc bulge indenting ventral thecal sac, No mass effect on the cord. Uncovertebral hypertrophy causing right neuroforaminal narrowing. C4-C5: Posterior disc osteophyte complex indenting ventral thecal sac, No mass effect on the cord or neuroforaminal narrowing. C5-C6: Ossification of posterior longitudinal ligament compressing ventral thecal sac. No mass effect on the cord. C6-C7:Disc bulge indenting ventral thecal sac, No mass effect on the cord or neuroforaminal narrowing. C7-T1: Disc bulge indenting ventral thecal sac, No mass effect on the cord or neuroforaminal narrowing. Thyroid gland appears mildly heterogenous. IMPRESSION: 1.No acute fracture in the cervical spine 2. Cervical spondylosis - stable Electronically signed by Meek Diggs 02-03-2025 03:57 AM
[2025-02-03] MEDS: SODIUM CHLORIDE 0.9% 500 ML IV ONE (04:01)
--- NOTE | 2025-02-03 04:09 | XRay Report ---
EXAM: XR chest 1V portable CLINICAL HISTORY: Trauma TECHNIQUE: An X-ray image of the chest is obtained in AP projection. COMPARISON: CR on 12/15/2024. FINDINGS: Pulmonary Parenchyma: Lungs are clear bilaterally. No evidence of consolidation, collapse, or focal opacities. No pulmonary nodules are identified. No evidence of pleural effusion or pleural thickening. Heart and Mediastinum: Prominent aortic arch. Heart size and shape are normal. No mediastinal widening or masses. No hilar or mediastinal lymphadenopathy. Bony Thorax: Bony thorax appears intact without fractures or deformities. Soft Tissues: Soft tissues overlying the chest wall are unremarkable. Chest wall leads are noted. Bilateral mild acromioclavicular osteoarthritis. IMPRESSION: 1. No evidence of consolidation, collapse, or pleural effusion. 2. No acute cardiopulmonary abnormalities are identified. 3. No time interval changes. Electronically signed by Reymundo Henry 02-03-2025 04:09 AM
--- NOTE | 2025-02-03 04:15 | CT Scan Report ---
EXAM: CT head/brain wo con CLINICAL HISTORY: Trauma. TECHNIQUE: Axial non-contrast CT scan of the brain was performed from the skull base to the high parietal region. One of the following dose reduction techniques were utilized for this exam: Automated exposure control, adjustment of the mA and/or kV according to patient size, use of iterative reconstruction. CTDI: 58.99 mGy , DLP: 991.63 mGy-cm. COMPARISON: 12/16/2024 CT. FINDINGS: Brain Parenchyma: Normal attenuation of the cerebral hemispheres, cerebellum, and brainstem. No evidence of acute infarct, hemorrhage, or mass effect. No abnormal areas of hypo- or hyperattenuation. Ventricular System: Ventricles are normal in size and configuration. No evidence of hydrocephalus or ventricular enlargement. Subarachnoid Spaces: Widening of cortical sulci and cisterns. No evidence of subarachnoid hemorrhage or extra-axial fluid collections. Cerebellum and Brainstem: No masses, lesions, or areas of abnormal density. Orbits: Normal appearance of the globes, optic nerves, and extraocular muscles. No evidence of orbital masses or abnormal density. Sinuses: Clear paranasal sinuses. No evidence of sinusitis or mucosal thickening. Mastoid Air Cells: Clear mastoid air cells. No evidence of mastoiditis. Skull: Normal skull morphology. No fractures seen. Occipital subgaleal hematoma IMPRESSION: 1. No evidence of acute infarct, hemorrhage, or mass effect. 2. Senile atrophic changes 3. Occipital subgaleal hematoma. New 4. No fractures seen. Electronically signed by Reymundo Henry 02-03-2025 04:15 AM
--- NOTE | 2025-02-03 05:20 | History & Physical Report ---
Date of Service February 03, 2025 Assessment & Plan (1) Subgaleal hemorrhage: (2) On warfarin therapy: (3) Headache: Plan #Subgaleal hematoma/Fall/Headache - Patient w/ fall, hit her head; denies hitting any other part of body - received compression bandage in ER, can continue to follow clinically and monitor for expansion and to decide whether Gen Surg consult would be needed - CT-Head IMPRESSION: 1. No evidence of acute infarct, hemorrhage, or mass effect. 2. Senile atrophic changes 3. Occipital subgaleal hematoma. New 4. No fractures seen. - CT- Cervical Spine : 1. No acute findings. 2. Cervical spondylosis, stable. - CXR, no acute findings; Fall precautions - Pain mgmt - avoid NSAIDs, Fioricet, 1. Tylenol, 650 mg, PO, q4hr, PRN (pain or fever 2. Morphine sulfate, IV, 2g, q3hr (pt on naltrexone for appetite suppression chcf, held upon admission; will decrease effectiveness of opioids) 3. Consider a) MgSO4, IV, for pain, b) diphenhydramine, IV #Coumadin therapy/Hx of PE - INR, 4.0 upon admission; vit K, 5mg, PO given - Coumadin held, daily INR labs Chronic conditions #HTN - continue verapamil #HLD - rosuvastatin #tremors - continue propranolol #Asthma/allergies - albuterol, cetirizine # Phillips's palsy (l. side), #Hx of tardive kinesia, #T2DM (w/ neuropathy) - insulin orders placed #hypothyroidism - continue levothyroxine, 50 mcg #anxiety/depression, - continue Bupropion, clozapine, donepezil, escitalopram #bipolar d/o - continue Lamictal, Topamax #fibromyalgia - continue gabapentin #obesity - uses naltrexone (off label for appetite suppression) Code status: Full code Disposition: Med-Surg VTE Prophylaxis: SCD's (to knee), Coumadin held FENGI: T2DM carb-consistent History of Present Illness Primary Care Provider: Darcy Jasso DO Patient is a 74 yo F w/ a PMHx of Phillips's palsy, SNHL (b/l), cervical radiculopathy, cognitive impairment, Phillips's palsy (l. side), HTN, Hx of tardive kinesia, dysphagia, T2DM (w/ neuropathy), hypothyroidism, anxiety/depression, bipolar d/o, fibromyalgia, who's presenting after having a fall 3 hours ago, hitting her head, and developing a headache. Patient was walking to her kitchen to get a drink of water, got to the sink, and then she said her legs got weak and she started shaking, and she started to feel like her eyes "were crossing" and she fell, hit her head on the side of the doorway. Patient lied on the floor for awhile, trying to get herself up, then eventually called her daughter who was unable to help her up. At this point they called for an ambulance. Upon admission, patient endorses a left-sided DENNEY that has now transitioned to left and frontal due to the compression bandage she's wearing. Patient has felt for several months now that she's been having trouble focusing on things, having trouble with a conjugate gaze. Patient feels like everything is "sparkly" in her vision. She denies hitting or injuring any other part of her body during the fall. Allergies Allergy/AdvReac Type Severity Reaction Status Date / Time amoxicillin [From Augmentin] Allergy Severe Rash Verified 01/18/25 14:43 clavulanic acid Allergy Severe Rash Verified 01/18/25 14:43 [From Augmentin] metoclopramide Allergy Severe facial Verified 01/18/25 14:43 swelling and blisters doxycycline Allergy Intermediate ? Verified 01/18/25 14:43 tetracycline, doxy caused itching (rechallenge 02/2017) fluticasone Allergy Intermediate BURNED Verified 01/18/25 14:43 NASAL PASSAGES Penicillins Allergy Intermediate Rash, hand Verified 01/18/25 14:43 swelling/redness tetracycline Allergy Intermediate ?--long Verified 01/18/25 14:43 time ago, doxy caused itching (rechallenge 02/2017) tolterodine Allergy Intermediate HIVES Verified 01/18/25 14:43 triamcinolone [From Kenalog] Allergy Intermediate Rash Verified 01/18/25 14:43 Tetracyclines Allergy Unknown Unknown Verified 01/18/25 14:43 Home Medications Medication Instructions Recorded Confirmed Type bupropion HCl 150 mg 24 hr tablet, 150 mg PO QAM 03/06/18 02/03/25 History extended release (Wellbutrin XL) bupropion HCl 300 mg 24 hr tablet, 300 mg PO QAM 08/20/18 02/03/25 History extended release (Wellbutrin XL) propranolol 40 mg tablet 40 mg PO BID 06/25/19 02/03/25 History lamotrigine 150 mg tablet 150 mg PO HS 09/28/19 02/03/25 History (Lamictal) cholecalciferol (vitamin D3) 25 2,000 unit PO HS 05/09/20 02/03/25 History mcg (1,000 unit) capsule TRUEplus Lancets 33 gauge (lancets) #300 ea 06/27/21 01/18/25 Rx lancets 33 gauge (TRUEplus Lancets) #300 ea 02/22/23 01/18/25 Rx blood-glucose meter (OneTouch #1 ea 06/06/23 01/18/25 Rx Verio Flex Meter) lancets 30 gauge (OneTouch Delica #200 ea 06/06/23 01/18/25 Rx Plus Lancet) naltrexone 50 mg tablet 100 mg PO QAM 08/23/23 02/03/25 History cyanocobalamin (vitamin B-12) 1,000 mcg PO QAM 10/02/23 02/03/25 History 1,000 mcg tablet (Vitamin B-12) cetirizine 10 mg tablet 10 mg PO DAILY #30 tabs 01/01/24 02/03/25 Rx dapagliflozin propanediol 10 mg 10 mg PO QAM #90 tabs 04/21/24 02/03/25 Rx tablet (Farxiga) escitalopram oxalate 20 mg tablet 20 mg PO QAM 05/28/24 02/03/25 History blood sugar diagnostic (OneTouch #200 ea 06/29/24 01/18/25 Rx Verio test strips) levothyroxine 50 mcg tablet 50 mcg PO QAM 90 days #90 tabs 08/24/24 02/03/25 Rx albuterol sulfate 90 mcg/actuation 2 puff inhalation Q4H PRN 09/01/24 02/03/25 Rx aerosol inhaler shortness of breath #1 inhaler warfarin 5 mg tablet See Rx Instructions PO UD 09/22/24 02/03/25 History donepezil 5 mg tablet 5 mg PO HS #30 tabs 10/15/24 02/03/25 Rx mupirocin 2 % topical ointment See Rx Instructions .Route 10/15/24 02/03/25 History .COMPLEX PRN as directed topiramate 50 mg tablet (Topamax) 50 mg PO BID #180 tabs 11/12/24 02/03/25 Rx clozapine 50 mg tablet 50 mg PO HS 11/16/24 02/03/25 History rosuvastatin 20 mg tablet 20 mg PO HS #90 tabs 12/03/24 02/03/25 Rx gabapentin 800 mg tablet 800 mg PO TID 12/09/24 02/03/25 History ipratropium bromide 42 mcg (0.06 2 spray intranasal BID 12/09/24 02/03/25 History %) nasal spray calcitriol 0.25 mcg capsule 0.25 mcg PO 3XWK 12/15/24 02/03/25 History cranberry fruit 400 mg tablet 400 mg PO QPM 12/15/24 02/03/25 History walker #1 ea 12/16/24 01/18/25 Rx tirzepatide 7.5 mg/0.5 mL 7.5 mg (0.5 mL) subcut Q7D #2 mL 02/02/25 02/03/25 Rx subcutaneous pen injector verapamil 40 mg tablet 40 mg PO QPM #30 tabs 02/03/25 Rx Past Med/Surg History Problem List (Updated 02/03/25 @ 14:52 by Thierno Gao MD) Chronic kidney disease, stage III (moderate) Type 2 diabetes mellitus Essential hypertension Fall Coumadin toxicity Subgaleal hemorrhage Myofascial neck pain On warfarin therapy (Acute) Acute right-sided weakness (Acute) Cervical radiculopathy Headache Sensorineural hearing loss (SNHL) of both ears VBI (vertebrobasilar insufficiency) Urinary incontinence Diabetic peripheral neuropathy Mild cognitive impairment Trochanteric bursitis of right hip Left knee DJD Other abnormalities of gait and mobility Muscle weakness Idiopathic peripheral neuropathy Leukopenia (Acute) Thickened nails Diabetic foot Right knee DJD Degenerative joint disease of right hip Benign essential hypertension Tardive dyskinesia History of colon polyps Morbid obesity Metabolic syndrome Multiple drug allergies Calculus of kidney Tremor Dysphagia Sensorineural hearing loss (SNHL) of left ear with restricted hearing of right ear Secondary hyperparathyroidism pt unaware H/O idiopathic seizure Diabetic peripheral neuropathy associated with type 2 diabetes mellitus Dyslipidemia Post laminectomy syndrome (Acute) Anxiety and depression Phillips's palsy (Acute) hx of Diabetes mellitus, type II (Chronic) Non-proliferative diabetic retinopathy Sacral neurostimulator in situ Chronic back pain Neuropathy bilateral feet and bilateral fingertips. Current use of exterminator helper termite anticoagulation (Chronic) Obesity (Acute) Hypothyroidism (Acute) Bipolar disorder (Acute) Memory loss "mild" Fibromyalgia Tinnitus, bilateral severe (worse in the left than right) Balance problem uses a cane Medical History Stroke-like symptoms Adverse drug effect Right sided weakness Cerebral vasospasm Focal epilepsy with impairment of consciousness CKD stage 3 due to type 2 diabetes mellitus History of urinary incontinence Hearing loss Hx of recurrent urinary tract infection Hx of Phillips's palsy (1973) Stage II pressure ulcer of buttock Tardive dyskinesia Post laminectomy syndrome Hypertension Falls frequently H/O idiopathic seizure Tremor Gait disturbance Osteoporosis History of kidney stones Depression Anxiety CKD stage 3 due to type 2 diabetes mellitus Hyperlipidemia Difficulty swallowing Diabetes mellitus, type 2 Pulmonary embolism on right (05/29/13) Surgical History S/P placement of nerve stimulator History of cataract surgery Hx of surgical procedure History of lumbar surgery History of dilatation and curettage History of lithotripsy History of esophagogastroduodenoscopy (EGD) History of colonoscopy History of cholecystectomy Hx of right inguinal hernia repair History of tooth extraction History of tonsillectomy Hx of cervical spine surgery History of cardiac cath History of left mastoidectomy Family History Father Myocardial infarction Mother Lung disease Other FHx: heart disease Family history of diabetes mellitus No family history of adverse response to anesthesia Denies family history of Ovarian cancer Prostate cancer Breast cancer Colorectal cancer Social History Smoking Status: Former smoker Tobacco Type: Cigarettes Age Started Using Tobacco: 15; Age Quit Using Tobacco: 27; packs per day: 0.50; Second Hand Exposure: No; Do You Dip or Chew Tobacco: No; Hx Alcohol Use: No Hx Substance Use: No Preferred Language: Kyrgyz Communication Ability: Effective Visual Impairment: No Limitations Hearing Ability: Hard of Hearing Dry Kiln Feeder Required: No Beliefs That Will Affect Care: None marital status: Current Living Situation: Family Current Living Situation Comment: lives with daughter, Lin current occupational status: retired current occupation: Former IT SECURITY SPECIALIST, 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 41 Feels Safe at Home: Yes Childhood Exposure to Second-Hand Smoke: Yes Seatbelt Use: always Sunscreen Use: No Assistive Devices: Cane Review of Systems Constitutional: + weakness; no fatigue Eyes: no blind spots, no diplopia and no loss of peripheral vision Respiratory: no cough, no chest congestion and no dyspnea Cardiovascular: no chest pain and no palpitations Gastrointestinal: no abdominal pain, no nausea and no vomiting Genitourinary: no dysuria, no urinary frequency and no urinary urgency Neurologic: + falls, + generalized weakness, + abnor mal movements and + heada will(s) Physical Exam Constitutional: WD/WN, vitals as above Eyes: PERRL and EOM intact bilaterally Respiratory: normal respiratory effort, lungs clear to auscultation Cardiovascular: RRR, no murmur, no edema Gastrointestinal (Abdomen): normal bowel sounds, soft, nontender, no hepatosplenomegaly Neurologic: + focal motor deficit (left facial droop ) and awake; + CN's not intact (left sided facial droop (chronic per pt)) and not confused Psychiatric: A+Ox3, euthymic affect Results & Data Results & Data Vital Signs (Past 12 Hours) Vital Signs Temp Pulse Pulse Resp BP BP Pulse Ox 02/03/25 04:00 80 18 120/59 L 96 02/03/25 03:22 80 18 118/71 96 02/03/25 02:48 97 02/03/25 02:39 37.1 C 83 18 112/97 98 02/03/25 02:22 37.1 C 83 18 112/97 98 O2 Del Method 02/03/25 04:00 Room Air 02/03/25 03:22 Room Air 02/03/25 02:48 Room Air 02/03/25 02:39 Room Air 02/03/25 02:22 Room Air Diagnostic Findings Cervical Spine CT 02/03/25 02:48 EXAM: CT cervical spine wo con CLINICAL HISTORY: Trauma TECHNIQUE: Computed tomography of the cervical spine performed without intravenous contrast. Contiguous axial images were obtained from the skull base to T2, with sagittal and coronal reformatted images reconstructed from the axial data. CT scan was performed according to ALARA (as low as reasonable achievable). COMPARISON: August FINDINGS: The normal cervical lordotic curvature is lost. 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 Degenerative changes are noted in the visualized spine in the form of marginal osteophytes, endplate irregularities and sclerosis, reduction in the disc height, small posterior disc bulges, vacuum phenomenon and facet arthropathy changes. Posterior elements (lamina and spinous process) from C5-C7 not seen- likely post op changes. Cervical vertebral bodies are normal in height, with no evidence of fracture or subluxation. Lateral masses of C1 are symmetrical, and the dens is intact. Prevertebral soft tissues are not widened. The remaining suprahyoid and infrahyoid soft tissues in the neck are unremarkable. C2-C3: No disc bulge, mass effect on the cord or neuroforaminal narrowing. C3-C4: Disc bulge indenting ventral thecal sac, No mass effect on the cord. Uncovertebral hypertrophy causing right neuroforaminal narrowing. C4-C5: Posterior disc osteophyte complex indenting ventral thecal sac, No mass effect on the cord or neuroforaminal narrowing. C5-C6: Ossification of posterior longitudinal ligament compressing ventral thecal sac. No mass effect on the cord. C6-C7:Disc bulge indenting ventral thecal sac, No mass effect on the cord or neuroforaminal narrowing. C7-T1: Disc bulge indenting ventral thecal sac, No mass effect on the cord or neuroforaminal narrowing. Thyroid gland appears mildly heterogenous. IMPRESSION: 1.No acute fracture in the cervical spine 2. Cervical spondylosis - stable Electronically signed by Meek Diggs 02-03-2025 03:57 AM Chest X-Ray 02/03/25 02:48 EXAM: XR chest 1V portable CLINICAL HISTORY: Trauma TECHNIQUE: An X-ray image of the chest is obtained in AP projection. COMPARISON: CR on 12/15/2024. FINDINGS: Pulmonary Parenchyma: Lungs are clear bilaterally. No evidence of consolidation, collapse, or focal opacities. No pulmonary nodules are identified. No evidence of pleural effusion or pleural thickening. Heart and Mediastinum: Prominent aortic arch. Heart size and shape are normal. No mediastinal widening or masses. No hilar or mediastinal lymphadenopathy. Bony Thorax: Bony thorax appears intact without fractures or deformities. Soft Tissues: Soft tissues overlying the chest wall are unremarkable. Chest wall leads are noted. Bilateral mild acromioclavicular osteoarthritis. IMPRESSION: 1. No evidence of consolidation, collapse, or pleural effusion. 2. No acute cardiopulmonary abnormalities are identified. 3. No time interval changes. Electronically signed by Reymundo Henry 02-03-2025 04:[address] 02/03/25 02:48 EXAM: CT head/brain wo con CLINICAL HISTORY: Trauma. TECHNIQUE: Axial non-contrast CT scan of the brain was performed from the skull base to the high parietal region. One of the following dose reduction techniques were utilized for this exam: Automated exposure control, adjustment of the mA and/or kV according to patient size, use of iterative reconstruction. CTDI: 58.99 mGy , DLP: 991.63 mGy-cm. COMPARISON: 12/16/2024 CT. FINDINGS: Brain Parenchyma: Normal attenuation of the cerebral hemispheres, cerebellum, and brainstem. No evidence of acute infarct, hemorrhage, or mass effect. No abnormal areas of hypo- or hyperattenuation. Ventricular System: Ventricles are normal in size and configuration. No evidence of hydrocephalus or ventricular enlargement. Subarachnoid Spaces: Widening of cortical sulci and cisterns. No evidence of subarachnoid hemorrhage or extra-axial fluid collections. Cerebellum and Brainstem: No masses, lesions, or areas of abnormal density. Orbits: Normal appearance of the globes, optic nerves, and extraocular muscles. No evidence of orbital masses or abnormal density. Sinuses: Clear paranasal sinuses. No evidence of sinusitis or mucosal thickening. Mastoid Air Cells: Clear mastoid air cells. No evidence of mastoiditis. Skull: Normal skull morphology. No fractures seen. Occipital subgaleal hematoma IMPRESSION: 1. No evidence of acute infarct, hemorrhage, or mass effect. 2. Senile atrophic changes 3. Occipital subgaleal hematoma. New 4. No fractures seen. Electronically signed by Reymundo Henry 02-03-2025 04:15 AM Supervising Physician Co-Signing Physician Notes Patient seen and examined, chart reviewed, case discussed with Dr. العلي and I agree with the assessment and plan as above. Patient s/p fall with subgaleal hematoma. Supratherapeutic INR=[address] CN intact, tardive dyskinesia movements noted on exam Posterior hematoma appreciated extending above bandage - marked with pen Assessment/Plan -Hold Coumadin -Monitor hematoma for expansion -Question ongoing need for Coumadin - patient with very frequent falls -Remainder as above
[2025-02-03] MEDS ORDERED: ONDANSETRON INJ 2 MG/ML 2 ML VIAL IV PRN (05:27)
[2025-02-03] MEDS ORDERED: MELATONIN 3 MG TAB PO PRN (05:27)
[2025-02-03] MEDS ORDERED: POLYETHYLENE (MIRALAX) 17 GM PACK PO PRN (05:27)
[2025-02-03] MEDS: PHYTONADIONE 5 MG TAB PO STA (06:23)
[2025-02-03] MEDS: ACETAMINOPHEN 500 MG TAB PO STA (06:23)
[2025-02-03] MEDS: MoRPHine SULFATE 4 MG/ML 1 ML CARP\\VIAL IV STA (06:24)
[2025-02-03] MEDS: MAGNESIUM SULFATE / D5W 1 GM/100 ML BAG IV STA (06:24)
--- NOTE | 2025-02-03 06:55 | Billing Data ---
Date of Service February 03, 2025 Coding Level of Care Code 52224 INT INP/OBS CARE
[2025-02-03] MEDS ORDERED: DEXTROSE 50% 50 ML SYRINGE IV PRN ×2 (07:15→07:35)
[2025-02-03] MEDS ORDERED: CARBOHYDRATES FOR HYPOGLYCEMIA PO PRN ×2 (07:15→07:35)
[2025-02-03] MEDS ORDERED: GLUCOSE 40% GEL 15 GM TUBE PO PRN ×2 (07:15→07:35)
[2025-02-03] MEDS ORDERED: ALBUTEROL HFA 8 GM INHALER INH PRN (07:15)
[2025-02-03] MEDS ORDERED: GLUCOSE 10 TAB/TUBE PO PRN ×2 (07:15→07:35)
[2025-02-03] MEDS ORDERED: GLUCAGON FOR INJ 1 MG VIAL SQ PRN ×2 (07:15→07:35)
[2025-02-03] MEDS: INSULIN ASPART PER UNIT CHARGE SC SCH ×2 (07:43→12:04)
[2025-02-03] MEDS: TOPIRAMATE 50 MG TAB PO SCH (08:31)
[2025-02-03] MEDS: CETIRIZINE HCL 10 MG TABLET PO SCH (08:31)
[2025-02-03] MEDS: CYANOCOBALAMIN (B-12) 500 MCG TABLET PO SCH (08:31)
[2025-02-03] MEDS: CALCITRIOL 0.25 MCG CAPSULE PO SCH (08:31)
[2025-02-03] MEDS: ESCITALOPRAM OXALATE 20 MG TAB PO SCH (08:31)
[2025-02-03] MEDS: GABAPENTIN 300 MG CAP PO SCH (08:32)
[2025-02-03] MEDS: LEVOTHYROXINE SODIUM 50 MCG TABLET PO SCH (08:32)
[2025-02-03] MEDS: IPRATROPIUM BROMIDE NASAL SPRAY 0.06% 15ML SCH (08:32)
[2025-02-03] MEDS ORDERED: LANTUS PER UNIT CHARGE SQ SCH (09:00)
[2025-02-03] MEDS: ACETAMINOPHEN 325 MG TAB PO PRN (09:32)
--- NOTE | 2025-02-03 12:50 | Electrocardiogram Report ---
Test Reason : Blood Pressure : */* mmHG Vent. Rate : 82 BPM Atrial Rate : 82 BPM P-R Int : 212 ms QRS Dur : 94 ms QT Int : 332 ms P-R-T Axes : -16 -13 -16 degrees QTcB Int : 387 ms Sinus rhythm with 1st degree A-V block Low voltage QRS Possible Inferior infarct , age undetermined Poor R wave progression, consider anterior SC vs. lead placement vs. LVH Abnormal ECG When compared with ECG of 15-Dec-2024 19:12, QT has shortened Confirmed by Nathanael Daniels ([id number]) on 02/03/2025 12:50:18 PM Referred By: REFERRED SELF Confirmed By: Nathanael Daniels
--- NOTE | 2025-02-03 14:54 | Hospitalist Progress Note ---
Date of Service February 03, 2025 Assessment & Plan (1) Coumadin toxicity: Plan: INR 4.0 on admission. She received vitamin K in the ED. Coumadin is currently on hold. Serial INR measurements (2) Fall: Plan: Mechanical. Associated with closed head injury and occipital subgaleal hematoma. Fortunately she did not suffer an intracranial hemorrhage. OT and PT assessments requested (3) Essential hypertension: Plan: Stable. Continue current medical management (4) Type 2 diabetes mellitus: Plan: ADA diet. Sliding scale coverage. She is insulin korina. Hypoglycemia should be avoided here (5) Chronic kidney disease, stage III (moderate): Plan: Monitor intake and output. Serial labs Plan To be determined by OT and PT assessments Admission and Anticipated Discharge Date Admission Date: February 03, 2025 Subjective The patient is awake and alert. Fortunately her mechanical fall and closed head injury did not result in intracranial hemorrhage. She does have an occipital subgaleal hematoma however. Coumadin is currently on hold and has been reversed with vitamin K. INR 4.0 on admission and will be repeated later today and on a daily basis going forward. Gabapentin dosage has been down titrated per pharmacy recommendation. OT and PT assessments have been requested. Review of Systems 2 Review of Systems: Constitutionalno fever or chills ENTno blurred vision, no double vision, no epistaxis, no sore throat Respiratoryno cough, no wheezing, no shortness of breath Cardiacno palpitations, no chest pain, no syncope Kenrick nausea, vomiting, diarrhea, melena, hematochezia GUno urinary retention, no urinary incontinence, no dysuria, no hematuria Musculoskeletalno joint pain, no muscle tenderness Skinno bruising, no rashes, no pruritus Neurono isolated weakness, no paresthesia, no weakness Psychno depression, no anxiety Physical Exam 2 Physical Exam: General-alert and oriented x3, no fever, no chills HEENT-head atraumatic and normocephalic, pupils equal and reactive to light, extraocular muscles intact Neck-no lymphadenopathy or thyromegaly, trachea midline Chest-clear to auscultation. No rales, wheezing or rhonchi Cardiac-regular rate and rhythm, normal S1 and S2 Abdomen-normal bowel sounds, no hepatosplenomegaly Extremities-no cyanosis, clubbing, or edema Neuro-cranial nerves II through XII intact, motor and sensory function within normal limits, strength symmetrical with generalized weakness, no focal deficits Psych-flat affect Results & Data Results & Data Vital Signs (Past 12 Hours) Vital Signs Pulse Pulse Resp BP Pulse Ox O2 Del Method 02/03/25 07:18 81 02/03/25 06:46 80 20 129/76 98 Room Air 02/03/25 04:00 80 18 120/59 L 96 Room Air 02/03/25 03:22 80 18 118/71 96 Room Air Laboratory Results 02/03/25 02:48 02/03/25 02:48 PG Care Time/CCT Total # of Minutes Spent Total Time Spent with Patient: Total time spent is greater than 50% in coordination of care (as documented) at patient's floor/unit and/or counseling patient: Coding Level of Care Code 86651 SUB INP/OBS CARE 3/50MIN Diagnoses Coumadin toxicity T45.511A Fall W19.XXXA Essential hypertension I10 Type 2 diabetes mellitus E11.9 Chronic kidney disease, stage III (moderate) N18.30
[2025-02-03 16:21] LABS: INR 4.5 (0.9-1.1); Prothrombin Time 42.9 Seconds (9.0-12.0)
[2025-02-03] MEDS: PHYTONADIONE 5 MG in DEXTROSE 5% 50 ML IV STA (19:36)
[2025-02-03] MEDS: DONEPEZIL HCL 5 MG TAB PO SCH (20:33)
[2025-02-03] MEDS: lamoTRIgine 100 MG TAB PO SCH (20:34)
[2025-02-03] MEDS: CHOLECALCIFEROL 25 MCG (1000 UNITS) TAB PO SCH (20:35)
[2025-02-03] MEDS: lamoTRIgine 25 MG TAB PO SCH (20:36)
[2025-02-03] MEDS: ROSUVASTATIN CALCIUM 20 MG TAB PO SCH (20:37)
[2025-02-03 20:43] VITALS: TEMP 97.9
[2025-02-03] MEDS: VERAPAMIL HCL 40 MG TAB PO SCH (20:44)
[2025-02-03] MEDS ORDERED: CRANBERRY FRUIT 400 MG PO SCH (21:00)
[2025-02-03] MEDS: MoRPHine SULFATE 2 MG/ML CARP IV STA (21:05)
[2025-02-04 07:47] VITALS: BP 106/65; PULSE 76; RESP 20; O2SAT 93
[2025-02-04 08:15] LABS: Hematocrit (blood only) 36.3 % (37.0-47.0); Hemoglobin 12.1 g/dl (12.0-16.0); Immature Granulocytes # (auto) 0.01 K/uL (0.01-0.20); Immature Granulocytes % (auto) 0.3 %; Mean Corpuscular Hemoglobin 31.8 pg (25.0-34.0); Mean Corpuscular Volume 95.3 fL (80.0-100.0); Platelet Count 180 K/uL (130-400); RDW Standard Deviation 45.8 fL (36.4-46.3); Red Blood Count 3.81 M/uL (4.20-5.40); White Blood Count 3.93 K/ul (4.8-10.8)
[2025-02-04 08:32] LABS: Anion Gap 5.0 (3-11); Blood Urea Nitrogen 25.0 mg/dl (6-23); Calcium 8.8 mg/dl (8.6-10.3); Carbon Dioxide 25.0 mmol/L (21-32); Chloride 114.0 mmol/L (98-107); Creatinine Clr Calc Pharmacy 44.3 ml/min; Magnesium 2.3 mg/dl (1.7-2.4); Potassium 3.9 mmol/L (3.5-5.1); Sodium 144.0 mmol/L (136-145)
[2025-02-04 08:46] LABS: INR 1.3 (0.9-1.1); Prothrombin Time 13.8 Seconds (9.0-12.0)
[2025-02-04 10:43] LABS: Appearance Urine Clear (Clear); Glucose Urine UA 1+ (Negative)
--- NOTE | 2025-02-04 11:30 | Discharge Summary ---
Discharge Summary Date of Service February 04, 2025 Principal Dx & Hospital Course #1 = Principal Diagnosis (1) Coumadin toxicity: INR 4.0 on admission. She received vitamin K orally in the ED and another dose of vitamin K parenterally after admission. INR is now 1.3. Coumadin has been discontinued. (2) Fall: Mechanical. Associated with closed head injury and occipital subgaleal hematoma. Fortunately she did not suffer an intracranial hemorrhage. She flatly refuses to consider SNF or rehab placement (3) Essential hypertension: Stable. Continue current medical management (4) Type 2 diabetes mellitus: ADA diet. Sliding scale coverage. She is insulin korina. Hypoglycemia should be avoided here (5) Chronic kidney disease, stage III (moderate): Stable. Monitor intake and output. Serial labs Plan She flatly refuses to consider SNF placement. She is medically stable. I spoke to her daughter by phone and told her that she is discharged today, February 04. Coumadin has been discontinued. She will follow-up with her PCP as soon as possible. Admission HPI Per Admitting Provider Patient is a 74 yo F w/ a PMHx of Phillips's palsy, SNHL (b/l), cervical radiculopathy, cognitive impairment, Phillips's palsy (l. side), HTN, Hx of tardive kinesia, dysphagia, T2DM (w/ neuropathy), hypothyroidism, anxiety/depression, bipolar d/o, fibromyalgia, who's presenting after having a fall 3 hours ago, hitting her head, and developing a headache. Patient was walking to her kitchen to get a drink of water, got to the sink, and then she said her legs got weak and she started shaking, and she started to feel like her eyes "were crossing" and she fell, hit her head on the side of the doorway. Patient lied on the floor for awhile, trying to get herself up, then eventually called her daughter who was unable to help her up. At this point they called for an ambulance. Upon admission, patient endorses a left-sided DENNEY that has now transitioned to left and frontal due to the compression bandage she's wearing. Patient has felt for several months now that she's been having trouble focusing on things, having trouble with a conjugate gaze. Patient feels like everything is "sparkly" in her vision. She denies hitting or injuring any other part of her body during the fall. Discharge Exam General-alert and oriented x3, no fever, no chills HEENT-head atraumatic and normocephalic, pupils equal and reactive to light, extraocular muscles intact Neck-no lymphadenopathy or thyromegaly, trachea midline Chest-clear to auscultation. No rales, wheezing or rhonchi Cardiac-regular rate and rhythm, normal S1 and S2 Abdomen-normal bowel sounds, no hepatosplenomegaly Extremities-no cyanosis, clubbing, or edema Neuro-cranial nerves II through XII intact, motor and sensory function within normal limits, strength symmetrical with generalized weakness, no focal deficits Psych-flat affect Discharge Plan Discharge Items Patient Disposition: Home - Self-Care Reason For Visit: FALL Discharge Diagnosis: Mechanical fall, closed head injury with occipital subgaleal hematoma, Coumadin toxicity Condition on Discharge: Good Activity: Resume your previous activity Non-emergency contact: Primary Care Provider Call non-emergency contact if: you have any medication questions Follow-up/Referrals: aDrcy Jasso DO [Primary Care Provider] - Diet: Carb Consistent or DM2 Addtl Attending Provider Instructions: Coumadin has been discontinued. All other medications remain the same. See primary care provider soon as possible Pending Studies at Discharge: No Stand-Alone Forms: My [facility] [employer], Smoking Cessation Medications and DC Order Prescriptions: Continued bupropion HCl [Wellbutrin XL] 150 mg tablet extended release 24 hr 150 mg PO QAM Rx Instructions: TOTAL DOSE 450 MG--TAKES WITH 300 MG TAB. cholecalciferol (vitamin D3) 25 mcg (1,000 unit) capsule 2,000 unit PO HS clozapine 50 mg tablet 50 mg PO HS lamotrigine [Lamictal] 150 mg tablet 150 mg PO HS propranolol 40 mg tablet 40 mg PO BID escitalopram oxalate 20 mg tablet 20 mg PO QAM gabapentin 800 mg tablet 800 mg PO TID ipratropium bromide 42 mcg (0.06 %) spray,non-aerosol 2 spray intranasal BID (DME) lancets [TRUEplus Lancets] 33 gauge misc See Rx Instructions .Route Qty: 300 3RF Rx Instructions: test 3 times daily (DME) lancets [TRUEplus Lancets] 33 gauge misc See Rx Instructions .Route Qty: 300 2RF Rx Instructions: use to test blood sugar TID cetirizine 10 mg tablet 10 mg PO DAILY Qty: 30 6RF dapagliflozin propanediol [Farxiga] 10 mg tablet 10 mg PO QAM Qty: 90 3RF (DME) OneTouch Verio test strips Strip See Rx Instructions miscellaneous .MEDSUPPLY Qty: 200 3RF Rx Instructions: Check 2x a day levothyroxine 50 mcg tablet 50 mcg PO QAM 90 Days Qty: 90 1RF rosuvastatin 20 mg tablet 20 mg PO HS Qty: 90 3RF Rx Instructions: 20 mg orally Daily in PM; verapamil 40 mg tablet 40 mg PO QPM Qty: 30 2RF naltrexone 50 mg tablet 100 mg PO QAM (DME) blood-glucose meter [OneTouch Verio Flex meter] Misc See Rx Instructions .ROUTE .MEDSUPPLY Qty: 1 0RF Rx Instructions: As directed (DME) lancets [OneTouch Delica Plus Lancet] 30 gauge misc See Rx Instructions miscellaneous .MEDSUPPLY Qty: 200 3RF Rx Instructions: Check 2x a day with new lancet mupirocin 2 % ointment See Rx Instructions .ROUTE .COMPLEX PRN (Reason: as directed) Dose Instruction: APPLY TOPICALLY 3 TIMES A DAY Rx Instructions: APPLY TOPICALLY 3 TIMES A DAY PRN; donepezil 5 mg tablet 5 mg PO HS Qty: 30 5RF tirzepatide 7.5 mg/0.5 mL pen injector 7.5 mg SUBCUT Q7D Qty: 2 2RF Rx Instructions: sundays albuterol sulfate 90 mcg/actuation HFA aerosol inhaler 2 puff inhalation Q4H PRN (Reason: shortness of breath) Qty: 1 3RF topiramate [Topamax] 50 mg tablet 50 mg PO BID Qty: 180 1RF bupropion HCl [Wellbutrin XL] 300 mg tablet extended release 24 hr 300 mg PO QAM Rx Instructions: TOTAL DOSE 450 MG--TAKES WITH 150 MG TAB. cyanocobalamin (vitamin B-12) [Vitamin B-12] 1,000 mcg Tablet 1,000 mcg PO QAM calcitriol 0.25 mcg capsule 0.25 mcg PO 3XWK Rx Instructions: take every saturday,saturday,saturday cranberry fruit 400 mg Tablet 400 mg PO QPM Rx Instructions: administer with a meal (DME) walker Misc See Rx Instructions .Route Qty: 1 0RF Rx Instructions: As directed Discontinued warfarin 5 mg tablet See Rx Instructions PO UD Rx Instructions: 7.5 mg every Saturday and Saturday; 10mg the other 5 days per [facility] orally use as directed; Discharge Orders: Discharge Order (Routine); Ordered 02/04/25 Ordered By: Thierno Gao Admission Data Admit Date/Time: 02/03/25 05:33 Attending Provider: Thierno Gao Admit Provider: Nathanael العلي Primary Care Provider: Darcy Jasso Other Providers: Alessandra Araiza Hospital Stay Data Consultations 02/03/25 05:34 ED Decision to Admit Stat Diagnostic Imagining Performed 02/03/25 02:48 CT cervical spine wo con Stat CT head/brain wo con Stat Pending Results Patient Have Any Pending Studies at Discharge: No Discharge Instructions Given to Patient (Per Discharging Provider) Coumadin has been discontinued. All other medications remain the same. See primary care provider soon as possible Total Time Total Time Spent Total Time Spent (In Minutes): 45 minutes Coding Level of Care Code 19411 INP/OBS DISCH >30 MIN Diagnoses Coumadin toxicity T45.511A Fall W19.XXXA Essential hypertension I10 Type 2 diabetes mellitus E11.9 Chronic kidney disease, stage III (moderate) N18.30
--- NOTE | 2025-02-08 08:29 | Coding Query ---
CODING QUERY To promote full compliance with coding requirements relating to patient care, provider participation is requested in all cases of bisque brusher uncertainty. Please assist us with the question(s) below: Coding Question(s): The Discharge Summary documents Coumadin toxicity, and there is documentation of occipital subgaleal hematoma and hemorrhage in the record, and documentation,Fortunately she did not suffer an intracranial hemorrhage, with documentation of a fall, and documentation of patient being on Coumadin and documentation, as on the ER of [facility] INR, and as on the H&P of, "Posterior hematoma appreciated extending above bandage - marked with pen Assessment/Plan -Hold Coumadin -Monitor hematoma for expansion -Question ongoing need for Coumadin - patient with very frequent falls -Remainder as above". Please specify below, in your clinical opinion, regarding Coumadin toxicity and the relation, if any, to the occipital subgaleal hematoma/hemorrhage expansion: ( ) Coumadin toxicity is from the patient taking Coumadin as prescribed, and is most likely causing the expansion of the occipital subgaleal hematoma/hemorrhage ( ) Coumadin toxicity is from the patient taking Coumadin incorrectly or not as prescribed, and is most likely causing the expansion of the occipital subgaleal hematoma/hemorrhage (x ) Other: Please specify____I have no way of knowing if the patient was taking the coumadin as prescribed Physician's Response(s): poor historian Thank you Katrin Marks Principal Diagnosis: "that condition established after study, to be chiefly responsible for occasioning the admission of the patient to the hospital for care." Co-Existing Principal Diagnosis: "when two or more diagnoses equally meet the criteria for principal diagnosis as determined by the circumstances of admission, diagnostic work up, and/or therapy provided, and the Alphabetic Index, Tabular List, or another coding guideline does not provide sequencing direction, any one of the diagnoses may be sequenced first." "When the physician has documented what appears to be a current diagnosis in the body of the record, but has not included the diagnosis in the final diagnostic statement, the physician should be asked whether the diagnosis should be added." (Source Coding [facility] 2 QTR90. p3-4) VICTOR HUGO
== END 2025-02-04 13:29 | disposition home or self-care (01) ==
LOC: SUATTDRO → ED 02:26 → EDINP 05:33 → INTOOBSV 05:33 → SUATTDRO 05:33 → EDINP 07:16 → 3N 18:30